=== PATIENT | male | born 1960 | race Caucasian/White ===

== ENCOUNTER 2016-05-26 11:35 | Inpatient (IN) | payer MEDICARE, MEDICAID ==
[2016-05-26 13:02] LABS: Hematocrit 41 % (42-52); Hemoglobin 14.1 g/dl (14.0-18.0); Mean Corpuscular HGB Conc 34 g/dl (31-36); Mean Corpuscular Hemoglobin 30 pg (27-31); Mean Corpuscular Volume 87 fL (80-94); Mean Platelet Volume 9 um3 (7.4-10.4); Red Blood Count 4.72 10^6/ul (4.0-5.4); Red Cell Distribution Width 15 % (10.5-15); White Blood Count 7.2 10^3/ul (3.5-10.8)
[2016-05-26 13:12] LABS: Albumin 4.3 g/dL (3.2-5.2); BUN/Creatinine Ratio 15.6 (8-20); C Reactive Protein 1.52 mg/L (< 5.00); Calcium 10.4 mg/dL (8.6-10.3); EGFR African American 166.4 (>60); EGFR Non-African American 129.4 (>60); Globulin 3.2 g/dL (2-4); Potassium 3.8 mmol/L (3.5-5.0); Total Bilirubin 0.5 mg/dL (0.2-1.0); Total Protein 7.5 g/dL (6.4-8.9)
[2016-05-26] MEDS ORDERED: Iodixanol* (CONTRAST) 320 MG/ML 100 ML SDV IV ONE (13:29)
[2016-05-26 14:09] LABS: Urine Bacteria Absent (Absent); Urine Bilirubin Negative (Negative); Urine Glucose Negative (Negative); Urine Nitrite Negative (Negative)
[2016-05-26 14:32] LABS: Troponin I 0.01 ng/mL (<0.04)
[2016-05-26] MEDS ORDERED: Aspirin TAB* 325 MG PO ONE (14:43)
[2016-05-26] MEDS ORDERED: NS 0.9% 1000 ML* 1,000 ML IV ONE (14:56)
--- NOTE | 2016-05-26 15:16 | RAD ---
Indication: Abdominal pain, left lower quadrant pain. Contrast: Administered 140.8 ml of VISAPAQUE 320 mgi/ml CT of the abdomen and pelvis was performed after IV contrast administration. No oral contrast was given. Coronal and sagittal reconstructed images were obtained. The lung bases demonstrate no pleural fluid, nodules or masses heart is of normal size without evidence of pericardial effusion. The liver is normal in size. No focal lesions or intrahepatic ductal dilatation is noted. The gallbladder demonstrates no calcified gallstones. No pericholecystic fluid or wall thickening is noted. The spleen is normal in size. No adrenal masses are noted. The kidneys demonstrate symmetric nephrograms without focal lesions. No retroperitoneal adenopathy. There is a dilated stomach and proximal jejunum noted. There is a zone of transition in the left mid abdomen findings are consistent with small bowel obstruction. Aorta and vena cava are unremarkable. No pelvic adenopathy. The bladder is unremarkable. No hernias are identified. The appendix is normal. IMPRESSION: DILATED STOMACH AND PROXIMAL SMALL BOWEL WITH SUGGESTION OF A ZONE OF TRANSITION IN THE LEFT MID ABDOMEN. FINDINGS ARE CONSISTENT WITH SMALL BOWEL OBSTRUCTION.
[2016-05-26] MEDS ORDERED: Dextrose 50% Syringe 50 ML* 25 GM/50 ML SYRINGE IV PUSH PRN (17:58)
[2016-05-26] MEDS ORDERED: Ondansetron INJ* 2 MG/ML VIAL IV PRN (18:54)
[2016-05-26] MEDS ORDERED: hydrALAZINE IV* 20 MG/ML VIAL IV SLOW PU PRN (19:12)
[2016-05-26] MEDS: NS 0.9% 1000 ML* 1,000 ML IV SCH (20:21)
[2016-05-26] MEDS: Pantoprazole IV* 40 MG IV SCH (20:22)
[2016-05-26] MEDS ORDERED: QUEtiapine TAB* 100 MG NG TUBE SCH ×2 (21:00)
[2016-05-26] MEDS: Metoprolol Tartrate TAB* 100 MG TAB NG TUBE SCH (21:19)
[2016-05-26] MEDS: Valproic Acid LIQ(*) 250 MG/5 ML UDC NG TUBE SCH (21:19)
[2016-05-26] MEDS: Insulin LISPRO* 1 UNITS UNIT SUBCUT SCH (21:20)
[2016-05-26] MEDS: Heparin VIAL(*) 5000 UNITS/ML VIAL (FIVE THOUSAND) SUBCUT SCH (21:22)
--- NOTE | 2016-05-26 23:05 | CONS ---
CONSULTATION REPORT: DATE OF CONSULT: 05/26/16 ATTENDING PHYSICIAN: Dr. Manav Campos. CHIEF COMPLAINT: Abdominal pain and distention. HISTORY OF PRESENT ILLNESS: Mr. Pinzon is a pleasant 55-year-old gentleman who presented to the emergency room earlier this morning with complaints of increased abdominal distention and generalized abdominal pain since this morning. The patient noted that last night he went to his mother's house and he was cleaning her refrigerator and he found some food items in there. He decided to take some mushrooms and sausage back home and he proceeded cooking these food items and eaten them last night. He denies any nausea or any abdominal discomfort last night; however, he got up this morning and he noticed increased discomfort and distention. He reports associated nausea, but denies any vomiting. He had never experienced any similar symptoms in the past. He denied any changes in the bowel habits, changes in the color of stool or urine, fever, chills, or any other associated symptoms. During his emergency room visit, he had an abdominal CT scan that revealed significantly distended abdomen and proximal small bowel with some transition zone in the mid jejunum consistent with probable small-bowel obstruction. Given these findings and the acute onset of his pain and distention, we were asked to see the patient for further evaluation regarding the small-bowel obstruction. Prior to entering the patient's room, it was noted that he had significant emesis for which he reports feeling much better. PAST MEDICAL HISTORY: Significant for schizophrenic disorder for which he had multiple psych admissions in the past lastly in December of last year. He also has a history of hypertension, hyperlipidemia, and morbid obesity. PAST SURGICAL HISTORY: Significant for left orchiectomy secondary to probable testicular torsion at age 18. He denies any abdominal surgery in the past. CURRENT MEDICATIONS: His medications at home include: 1. Risperdal 2 mg p.o. b.i.d. 2. Metformin 500 mg p.o. b.i.d. 3. Seroquel 400 mg p.o. q.h.s. 4. Actos 30 mg p.o. daily. 5. Nicotine inhaler 10 mg 1 inhalation every 2 hours p.r.n. 6. Metoprolol 100 mg b.i.d. 7. Lisinopril 10 mg p.o. daily. 8. Depakote 1500 mg p.o. q.h.s. 9. Lotensin 10 mg p.o. daily. 10. Atorvastatin 10 mg p.o. q.h.s. 11. Low-dose baby aspirin 81 mg daily. ALLERGIES: He is allergic to HALDOL and THIORIDAZINE. The patient unsure about any severe reaction related to either medications. FAMILY HISTORY: He denies any family history of colorectal malignancies or small bowel obstruction in the past. SOCIAL HISTORY: The patient is a smoker, reports 1 to 1-1/2 pack per day for the last 35 years. He denies alcohol intake or recreational drug use. REVIEW OF SYSTEMS: See HPI. Otherwise negative. He denies any recent changes in his weight, changes in bowel habits, hematuria, dysuria, urinary frequency, or any other urinary problems. He denies any fever, chills, or recent weight loss. No cough, dyspnea, or chest pain. He admits to nausea, but denies any vomiting until prior to seeing him in the emergency room. PHYSICAL EXAMINATION: Vital Signs: His blood pressure was elevated, value of 163/95, pulse of 78, respiration rate 20, O2 sat is 95%, and temperature of 98.6. General: He is a healthy-appearing, obese middle-aged gentleman, appears in no acute distress or discomfort at the time of consultation. HEENT: Sclerae anicteric. PERRLA. EOMs intact. Oropharynx is pink, moist with no exudate. Neck: Supple. Trachea midline. No cervical adenopathy or thyromegaly. Lungs: Clear to auscultation bilaterally. Heart is regular rate and rhythm. Normal S1, S2 without rubs, murmurs, or gallops. Back with normal curvature. No CVA tenderness. Abdomen: Soft and moderately distended. The patient had [id number] left upper quadrant tenderness noted on palpation, but negative for guarding or rebound tenderness. There is no organomegaly noted. No hernias or masses. Extremities without no cyanosis, clubbing, or edema. Neurologic: Grossly intact. Rectal Exam: Deferred at this time. LABORATORY WORKUP: The patient had CBC and chemistry done during his ER visit revealing a white count of 7200, hemoglobin of 14.1, hematocrit of 41, and platelet count of 147. His BMP revealed sodium of 136, potassium 3.8, chloride of 96, CO2 of 33, BUN of 10, and creatinine of 0.6 and his glucose was 129. LFTs are essentially within normal limits. C-reactive protein was 1.52, lipase of 54, and lactic acid slightly elevated value of 2.7. ACCESSORY DIAGNOSTIC DATA: CT scan of the abdomen and pelvis was significant for distended stomach in proximal small bowel with a transition zone in the mid jejunum consistent with small bowel obstruction. ASSESSMENT: A 55-year-old gentleman who presented to the emergency room with generalized abdominal pain and distention and CT scan findings consistent with small bowel obstruction. PLAN: As mentioned above in HPI, the patient had an emesis after his CT scan with significant amount of dark brown emesis noted after which he felt significantly better during his ER visit. Also, an NG tube was placed and an output of 1500 cc was noted within the first few minutes. The patient was re- examined and his abdomen was significantly less distended after that with significant improvement overall. I went on and discussed with the patient the probability of differential diagnosis for his symptoms. Given the fact that he had never had any surgeries in the past, we highly doubt any mechanical obstruction related to his small bowel obstruction or any surgical concern at this time. He likely suffered from a case of gastroenteritis that needs some decompression using an NG tube at this time. Once the decompression part is successful, we will start feeding him slowly. The case was discussed with Dr. Campos who agreed to that plan and he will contact the Hospitalist for probable medical admission for observation overnight. We will follow up with the patient tomorrow; and at this point, there are no signs of acute abdomen. We will follow him up accordingly. [facility] KAILA FARRIS [id number]/[facility] #: [id number] SYED
--- NOTE | 2016-05-27 00:53 | HP ---
HISTORY AND PHYSICAL: DATE OF ADMISSION: 05/26/16 PROVIDER: Fran Guzman NP ATTENDING PHYSICIAN: Dr. Samir Hansen * (as dictated by Fran Guzman NP) CONSULTING PHYSICIAN: Dr. Manav Campos, Surgery. PCP: Feliciano Mata NP CHIEF COMPLAINT: Abdominal pain and nausea and vomiting. HISTORY OF PRESENT ILLNESS: Mr. Pinzon is a 55-year-old male with the past medical history significant for schizophrenia, hypertension, coronary artery disease, and hypercholesterolemia who presented to the ER today for evaluation of abdominal pain, nausea, and vomiting. The patient states that last evening he made himself some pizza and used some mushrooms from refrigerator that were most likely spoiled. Starting last evening, the patient then had persistent nausea and vomiting that continues this morning. He states that his registration officer came by to check in on him and noted that he was ill and called EMS for him. He reported a persistent pain in his abdomen that he locates in the epigastric region down to the middle of his belly and states that this was very severe and lasted until the NG tube was placed here in the ER. He reports that he had persistent vomiting until this NG tube was placed and once it was placed he felt much better once the fluid had been drained off. It is estimated by nursing that the patient had approximately 2600 mL of brown bilious drainage from the NG tube in addition to the multiple emesis that he had. The patient reports subjective fevers as evidenced by sweating at home. He denies any dizziness, lightheadedness, chest pain, palpitations, or edema. He denies shortness of breath or cough. He denies any recent cold or flu symptoms. He denies any dysuria, focal weakness, changes in vision, hearing, or swallowing, changes in speech. He denies any joint pain, muscle pains, or rashes. He denies anxiety, depression, or suicidal ideation. During the patient's ER evaluation, it was noted that he had an elevated lactic acid of 2.7. The patient did have a CT scan, which showed dilated stomach and proximal small bowel with suggestion of a zone of transition in the left mid abdomen. Findings are consistent with small bowel obstruction. He does report that his last bowel movement was the morning of 05/25/16 and it was normal. He states that his bowel movement was soft, it did not appear to be out of the ordinary. He denies any hematemesis, melena, or hematochezia. PAST MEDICAL HISTORY: Significant for: 1. Schizophrenia. 2. Hypertension. 3. Coronary artery disease. 4. Hypercholesterolemia. 5. History of [place], per patient. 6. Diabetes mellitus, type 2. MEDICATIONS: Home Medications: Home med list is incomplete and the patient states that he brought the medication list, but this appears to have been lost. Nursing has been requested to obtain his med list as soon as possible. The patient does appear to be on Seroquel ER 400 mg at bedtime. He also states that he takes the divalproex ER 500 mg tablet, he takes 2 tablets in the morning and 2 tablets in the evening. ALLERGIES: The patient has a HALDOL allergy that is listed as an adverse reaction, which causes sleepiness and THIORIDAZINE adverse reaction that is noted as sensitivity. FAMILY HISTORY: The patient is unable to recall at this time. SOCIAL HISTORY: He is a current smoker, he states he smokes approximately a pack a day and does also puff on his pipe. He denies alcohol use. He denies any illicit drug use including marijuana, cocaine or heroin. He is not working. He states that he lives by himself and lists his mother, Dalia Cooper his surrogate decision maker. REVIEW OF SYSTEMS: 12-point review of systems was completed, all pertinent positives and negatives are included in the HPI. Others not mentioned are negative. PHYSICAL EXAMINATION GENERAL: Mr. Pinzon is a 55-year-old male who was sitting up in the ED stretcher in no acute distress. He is alert, cooperative with care. VITAL SIGNS: Temperature 98.2, respiratory rate 20, heart rate 78, blood pressure 143/73, and O2 saturation 95% on room air. HEENT: Head is atraumatic and normocephalic. Face is symmetrical. Pupils are equal, round, and reactive to light. Extraocular movements are intact. Oral mucosa appears moist. There is no oropharyngeal erythema or exudate. NECK: Supple. No lymphadenopathy appreciated. LUNGS: Respiratory; lungs are clear to auscultation. There is no accessory muscle use. HEART: S1 and S2 heart sounds. Regular rate and rhythm. No murmurs, rubs, or gallops. There is no lower extremity edema. The patient has 2+ distal pulses. ABDOMEN: Obese, distended, mildly tender in the left lower quadrant. Bowel sounds are hypoactive to the right and present on the left in the upper and lower quadrants. There is no rebound tenderness or guarding. MUSCULOSKELETAL: There is no clubbing or cyanosis. The patient has full range of motion. SKIN: Appears grossly intact, limited examination. NEUROLOGIC: Cranial nerves II through XII are grossly intact. The patient is able to move all extremities. Sensation is intact to light touch to the lower extremities. PSYCH: He is alert and oriented x3. His affect is appropriate. He is cooperative with care. LABORATORY DATA AND DIAGNOSTIC STUDIES: CBC: WBC 7.2, hemoglobin 14.1, hematocrit 41, platelet count 147. CMP: Sodium 136, potassium 3.8, chloride 96 , carbon dioxide 33, BUN 10, and creatinine 0.64. Glucose 129, lactic acid 2.7. Total bilirubin 0.5, AST 21, ALT 28, troponin 0.01. CRP 1.52. Albumin 4.3, lipase 84. Urinalysis shows trace ketones, 2+ protein, and amorphous crystals. CT scan. Impression: Dilated stomach and proximal small bowel with suggestion of a zone of transition in the left mid abdomen. Findings are consistent with small bowel obstruction. 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 The patient has right bundle-branch block. The patient was also noted to have an EKG from May 2011, which showed a previous inferior infarct, again Q- waves noted in leads II and aVF. Old medical records were reviewed. ASSESSMENT AND PLAN: Mr. Pinzon is a 55-year-old male with a past medical history of schizophrenia, hypertension, coronary artery disease, hyperlipidemia , diabetes, and hypertension who presents today with concern for small bowel obstruction. He will be admitted as an inpatient to the surgical floor. Plan is as follows: 1. Nausea, vomiting, and abdominal pain secondary to small bowel obstruction. Admit to surgical stay unit. Surgery was consulted in the ER and saw the patient prior to admission. They will continue to follow with the patient. The patient received an NG tube in the ER and has had significant output and reports improvement in his symptoms. We will continue the NG tube in low intermittent suction. The patient will be n.p.o. except for medications, which will be given per the NG tube and clamped. We will repeat a KUB in the morning. The patient will be receiving IV hydration and supportive care p.r.n. antiemetics and IV Protonix is ordered. 2. Lactic acidosis, suspect this is secondary to hypovolemia, dehydration in the presence of nausea and vomiting. Repeat lactic acid ordered. We will continue to monitor the patient, and he is receiving IV hydration. 3. Diabetes mellitus. Fingerstick blood glucose checks a.c. and h.s. On the unconfirmed medication list, it appears the patient is on oral hypoglycemics, which we will confirm. He may restart those once taking p.o. In the interim, we will continue the patient on fingerstick blood glucose checks and covering with sliding scale insulin. 4. Coronary artery disease. The patient appears to be on daily aspirin as well as a statin, which we will continue once he is taking p.o. Again, this needs to be confirmed with his home med list. 5. History of hypertension. The patient is hypertensive here. I have restarted his metoprolol and lisinopril that he verbally confirms that he takes. This will be given per NG tube. P.r.n. hydralazine is also ordered. 6. Schizophrenia. Given the patient's mental health issues and previous admission to the psychiatric unit, I am hesitant to discontinue or hold off on his antipsychotics. I did discuss the patient's medications with the pharmacist. We will switch the patient's Seroquel XR to Seroquel immediate release to be given b.i.d. per NG tube. The patient is also on valproic acid ER twice a day. With the help of the pharmacist, we have determined that the conversion of this should be Depakote immediate release liquid, which should be given 1500 mg over the course of the day in 3 divided doses, which has been ordered to be given per NG tube as well. Once the patient is able to take p.o., we can switch him back to his normal formulation. Again, the patient verbally reported what he remembers his divalproex and Seroquel doses to be; however, this needs to be confirmed with his PCP or pharmacy to determine if we have the correct dosing. 7. Hypercholesterolemia. Resume statin when taking p.o. 8. Fluids, electrolytes, and nutrition. The patient is n.p.o. Continue IV hydration. 9. DVT prophylaxis. The patient is ordered subcu heparin. 10. Code status. He is a full code. TIME SPENT: Time spent on this admission was approximately 60 minutes, more than half that time was spent [id number] with the patient obtaining history and physical, performing the physical examination, and reviewing the plan of care. Plan of care was also reviewed with my attending Dr. Hansen, who is in agreement. FRAN GUZMAN NP CC: Feliciano Mata [place]* [id number]/[facility] #: [id number] MTDLei
[2016-05-27] MEDS: NS 0.9% 1000 ML* 1,000 ML IV SCH ×3 (04:18→21:29)
[2016-05-27] MEDS: Heparin VIAL(*) 5000 UNITS/ML VIAL (FIVE THOUSAND) SUBCUT SCH ×3 (05:53→21:28)
[2016-05-27 07:03] LABS: Hematocrit 40 % (42-52); Hemoglobin 13.7 g/dl (14.0-18.0); Mean Corpuscular HGB Conc 34 g/dl (31-36); Mean Corpuscular Hemoglobin 30 pg (27-31); Mean Corpuscular Volume 87 fL (80-94); Mean Platelet Volume 8 um3 (7.4-10.4); Red Cell Distribution Width 15 % (10.5-15)
[2016-05-27 07:08] LABS: BUN/Creatinine Ratio 21.2 (8-20); Calcium 9.1 mg/dL (8.6-10.3); EGFR African American 160.6 (>60); EGFR Non-African American 124.9 (>60); Potassium 3.6 mmol/L (3.5-5.0)
[2016-05-27] MEDS: Insulin LISPRO* 1 UNITS UNIT SUBCUT SCH ×4 (08:44→21:26)
--- NOTE | 2016-05-27 08:47 | SURGPN ---
Subjective - Introduction -: Admitted on: 05/26/2016 Patient's surgical date: None Procedure completed: None - Medications -: Active Medications Generic Name Dose Route Start Last Admin Trade Name Nga PRN Reason Stop Dose Admin Dextrose 12.5 gm 05/26/16 17:58 D50w Syringe 50 Ml* IV PUSH .FOR FS < 60 - SS PRN FS < 60 Heparin Sodium (Porcine) 5,000 units 05/26/16 22:00 05/27/16 05:53 Heparin Vial(*) SUBCUT 5,000 units Q8HR ACE Administration Hydralazine HCl 5 mg 05/26/16 19:12 Apresoline Iv* IV SLOW PU Q4H PRN BLOOD PRESSURE Sodium Chloride 1,000 mls @ 125 mls/hr 05/26/16 19:00 05/27/16 04:18 Ns 0.9% 1000 Ml* IV 125 mls/hr PER RATE ACE Administration Insulin Human Lispro 0 units 05/26/16 21:00 05/26/16 21:20 Humalog* SUBCUT Not Given ACHS [facility] Protocol Metoprolol Tartrate 100 mg 05/26/16 21:00 05/26/16 21:19 Lopressor Tab* NG TUBE 100 mg BID ACE Administration Nicotine 10 mg 05/26/16 19:07 Nicotine Inhaler* INH Q2H PRN CRAVING Ondansetron HCl 4 mg 05/26/16 18:54 Zofran Inj* IV Q6H PRN NAUSEA/VOMITING Pantoprazole Sodium 40 mg 05/26/16 19:00 05/26/16 20:22 Protonix Iv* IV 40 mg DAILY ACE Administration Quetiapine Fumarate 500 mg 05/26/16 21:00 05/26/16 21:19 Seroquel Tab* NG TUBE 500 mg BEDTIME ACE Administration Valproic Acid 500 mg 05/26/16 21:00 05/26/16 21:19 Depakene Liq(*) NG TUBE 500 mg TID ACE Administration - Comments Comments: Patient reports doing much better today. He slept well last night. Denies any pain, nausea , fever or chills. No flatus yet, but he feels his abdomen "rumbling", also feels hungry and thirsty. Objective - Objective -: Awake and alert, appears comfortable and in NAD. Vitals, I/O reviewed from last night. - Intake and Output -: Intake & Output 05/25/16 05/26/16 05/27/16 05/28/16 06:59 06:59 06:59 06:59 Intake Total 980 Output Total 1300 Balance -320 Weight 275 lb Intake: IV Fluids 980 NS (0.9%) 980 Oral 0 Output: NG Tube Drainage Amount 950 Urine 350 Intake and Output Start: 05/26/16 18: 52 Freq: DAILY@0600,1400,2200 Status: Active Document 05/26/16 22:00 [id number] (Rec: 05/26/16 22:46 [id number]) Document 05/27/16 04:19 [id number] (Rec: 05/27/16 04:19 [id number]) Document 05/27/16 06:00 [id number] (Rec: 05/27/16 06:10 [id number]) Document 05/27/16 06:42 [id number] (Rec: 05/27/16 06:42 [id number]) Surgical Physical Exam - Comments -: Abdomen soft and significantly less distended compared to yesterday. No tenderness noted. Bowel sounds are hypoactive in all quadrants. No hernias or masses. Lungs CTA bilaterally. Extremities with no edema. Assessment and Plan - Assessment -: A 55 y/o male with resolving partial SBO secondary to probable gastroenteritis. - Plan Additional Comments: Patient is under hospitalist care. He is scheduled for a F/U abdominal films this AM. He is doing much better clinically with minimal NG output this morning. If abd x-ray shows improvement, I would recommend removing NG this morning, and starting clear liquid diet. I discussed these plans with patient, who appears to understand and agreed with his care plan. We will follow him up accordingly.
[2016-05-27] MEDS ORDERED: Lisinopril TAB* 10 MG NG TUBE SCH (09:00)
[2016-05-27] MEDS: Pantoprazole IV* 40 MG IV SCH (09:17)
[2016-05-27] MEDS: Valproic Acid LIQ(*) 250 MG/5 ML UDC NG TUBE SCH ×2 (09:27→14:19)
[2016-05-27] MEDS: Metoprolol Tartrate TAB* 100 MG TAB NG TUBE SCH (09:27)
[2016-05-27] MEDS: Mouth Piece, Nicotine* 1 EACH CARTRIDGE ONE (09:30)
[2016-05-27] MEDS: Nicotine Inhaler* 10 MG AMP INH PRN (09:30)
--- NOTE | 2016-05-27 14:05 | RAD ---
Indication: Small bowel obstruction follow-up. Comparison: May 26, 2016 CT. Technique: Supine abdomen radiographs. Report: Nasogastric tube tip at level of gastric body directed distal. The stomach appears largely decompressed. Solitary mildly dilated small bowel loop in the LEFT upper quadrant. Large volume of stool visualized in the RIGHT colon and hepatic flexure. IMPRESSION: Decreased magnitude of small bowel dilatation favoring resolving small bowel obstruction.
--- NOTE | 2016-05-27 14:47 | SURGPN ---
Subjective - Medications -: Active Medications Generic Name Dose Route Start Last Admin Trade Name Freq PRN Reason Stop Dose Admin Dextrose 12.5 gm 05/26/16 17:58 D50w Syringe 50 Ml* IV PUSH .FOR FS < 60 - SS PRN FS < 60 Heparin Sodium (Porcine) 5,000 units 05/26/16 22:00 05/27/16 14:18 Heparin Vial(*) SUBCUT 5,000 units Q8HR ACE Administration Hydralazine HCl 5 mg 05/26/16 19:12 Apresoline Iv* IV SLOW PU Q4H PRN BLOOD PRESSURE Sodium Chloride 1,000 mls @ 125 mls/hr 05/26/16 19:00 05/27/16 12:55 Ns 0.9% 1000 Ml* IV 125 mls/hr PER RATE ACE Administration Insulin Human Lispro 0 units 05/26/16 21:00 05/27/16 11:43 Humalog* SUBCUT Not Given ACHS [facility] Protocol Metoprolol Tartrate 100 mg 05/26/16 21:00 05/27/16 09:27 Lopressor Tab* NG TUBE 100 mg BID ACE Administration Nicotine 10 mg 05/26/16 19:07 05/27/16 09:30 Nicotine Inhaler* INH 10 mg Q2H PRN Administration CRAVING Ondansetron HCl 4 mg 05/26/16 18:54 Zofran Inj* IV Q6H PRN NAUSEA/VOMITING Pantoprazole Sodium 40 mg 05/26/16 19:00 05/27/16 09:17 Protonix Iv* IV 40 mg DAILY ACE Administration Quetiapine Fumarate 500 mg 05/26/16 21:00 05/26/16 21:19 Seroquel Tab* NG TUBE 500 mg BEDTIME ACE Administration Valproic Acid 500 mg 05/26/16 21:00 05/27/16 14:19 Depakene Liq(*) NG TUBE 500 mg TID ACE Administration - Comments Comments: Feeling better, has no complaints. He is hungry and thirsty. Objective - Objective -: Alert and oriented, in NAD. - Intake and Output -: Intake & Output 05/25/16 05/26/16 05/27/16 05/28/16 06:59 06:59 06:59 06:59 Intake Total 980 985 Output Total 1300 Balance -320 985 Weight 275 lb Intake: IV Fluids 980 985 NS (0.9%) 980 985 Oral 0 Output: NG Tube Drainage Amount 950 Urine 350 Intake and Output Start: 05/26/16 18: 52 Freq: DAILY@0600,1400,2200 Status: Active Document 05/26/16 22:00 [id number] (Rec: 05/26/16 22:46 [id number] [id number]) Document 05/27/16 04:19 [id number] (Rec: 05/27/16 04:19 [id number] [id number]) Document 05/27/16 06:00 [id number] (Rec: 05/27/16 06:10 [id number] [id number]) Document 05/27/16 06:42 [id number] (Rec: 05/27/16 06:42 [id number] [id number]) Surgical Physical Exam - Comments -: Unchanged from this morning. Abdomen is soft, non-tender and less distended. Bowel sounds are more active. KUB reviewed, resolving partial SOB. Assessment and Plan - Plan Additional Comments: Resolving partial SBO. Will d/c NG tube and start clear liquid diet slowly. I discussed with pt the need to ambulate as much as possible. Await bowel function.
--- NOTE | 2016-05-27 18:20 | PN ---
Subjective Date of Service: 05/27/16 Interval History: This is a 55 yo gentleman with schizophrenia, HTN, CAD, HLD, and DM who presented with severe abdominal pain, n/v. Imaging c/w SBO. NGT placed with large amount of emesis intially, but output slowed overnight. No h/o prior SBO. He also reports no prior abdominal surgeries. Patient reports resolution of abdominal pain. No further n/v. Reports having an appetite and passing gas. Objective Active Medications: Dextrose (D50w Syringe 50 Ml*) 12.5 gm IV PUSH .FOR FS < 60 - SS PRN PRN Reason: FS < 60 Heparin Sodium (Porcine) (Heparin Vial(*)) 5,000 units SUBCUT Q8HR [facility] Last Admin: 05/27/16 14:18 Dose: 5,000 units Hydralazine HCl (Apresoline Iv*) 5 mg IV SLOW PU Q4H PRN PRN Reason: BLOOD PRESSURE Sodium Chloride (Ns 0.9% 1000 Ml*) 1,000 mls @ 125 mls/hr IV PER RATE [facility] Last Admin: 05/27/16 12:55 Dose: 125 mls/hr Insulin Human Lispro (Humalog*) 0 units SUBCUT ACHS [facility] PRN Reason: Protocol Last Admin: 05/27/16 17:17 Dose: Not Given Metoprolol Tartrate (Lopressor Tab*) 100 mg NG TUBE BID [facility] Last Admin: 05/27/16 09:27 Dose: 100 mg Nicotine (Nicotine Inhaler*) 10 mg INH Q2H PRN PRN Reason: CRAVING Last Admin: 05/27/16 09:30 Dose: 10 mg Ondansetron HCl (Zofran Inj*) 4 mg IV Q6H PRN PRN Reason: NAUSEA/VOMITING Pantoprazole Sodium (Protonix Iv*) 40 mg IV DAILY [facility] Last Admin: 05/27/16 09:17 Dose: 40 mg Quetiapine Fumarate (Seroquel Tab*) 500 mg NG TUBE BEDTIME [facility] Last Admin: 05/26/16 21:19 Dose: 500 mg Valproic Acid (Depakene Liq(*)) 500 mg NG TUBE TID [facility] Last Admin: 05/27/16 14:19 Dose: 500 mg Vital Signs: Temp Pulse Resp BP Pulse Ox 98.3 F 75 18 161/81 95 05/27/16 16:29 05/27/16 16:29 05/27/16 16:29 05/27/16 16:29 05/27/16 16:29 Appearance: Well appearing middle aged gentleman in NAD. NGT in place. Neck: NL Appearance and Movements; NL JVP Respiratory: Symmetrical Chest Expansion and Respiratory Effort, Clear to Auscultation Cardiovascular: NL Sounds; No Murmurs; No JVD, RRR Abdominal: NL Sounds; No Tenderness; No Distention, - - faint bowel sounds present Extremities: No Edema Skin: No Rash or Ulcers Neurological: Alert and Oriented x 3 Result Diagrams: 05/27/16 06:20 05/27/16 06:21 Diagnostic Imaging: CT abd/pelvis - markedly distended stomach and SB KUB 05/27 - No dilated loops of SB, significant stool noted in large colon Assess/Plan/Problems-Billing Assessment: This is a 55 yo gentleman with schizophrenia, HTN, CAD, HLD, and DM who presented with evidence of SBO. - Patient Problems (1) SBO (small bowel obstruction) Comment: Improved with NGT decompression Now passing gas and has an appetite Will dc NGT and start clear liquid diet Etiology unknown, no h/o abdominal surgery, no gross pathology on CT, ? constipation (2) Constipation Comment: Sig stool noted on KUB today ?contributing to acute presentation Start Miralax bid (3) HTN (hypertension) Comment: Moderately hypertensive today Will resume home meds (4) Schizophrenia Comment: Stable Cont home meds (5) CAD (coronary artery disease) Comment: Cont BB, statin, ASA No evidence of ACS (6) Diabetes SNOMED Code(s): 22532320 Comment: Hold metformin Cover hyperglycemia with SS Humalog (7) HLD (hyperlipidemia) Status and Disposition: Requires continued inpatient stay. NGT dc'd this afternoon. Possible dc tomorrow if he can tolerate his diet
[2016-05-27] MEDS: Atorvastatin* 10 MG TAB PO SCH (20:33)
[2016-05-27] MEDS: QUEtiapine XR TAB* 300 MG PO SCH (20:33)
[2016-05-27] MEDS: Metoprolol Tartrate TAB* 100 MG TAB PO SCH (20:33)
[2016-05-27] MEDS: Divalproex ER TAB(*) 500 MG PO SCH (20:33)
[2016-05-27] MEDS: QUEtiapine XR TAB* 200 MG PO SCH (20:33)
[2016-05-27] MEDS: Polyethylene Glycol 3350* 17 GM PACKET PO SCH (20:33)
[2016-05-28] MEDS: NS 0.9% 1000 ML* 1,000 ML IV SCH (05:23)
[2016-05-28] MEDS: Heparin VIAL(*) 5000 UNITS/ML VIAL (FIVE THOUSAND) SUBCUT SCH ×3 (05:23→21:37)
[2016-05-28] MEDS: Insulin LISPRO* 1 UNITS UNIT SUBCUT SCH ×4 (07:32→21:11)
--- NOTE | 2016-05-28 08:40 | SURGPN ---
Subjective - Introduction -: Admitted on: 05/26/2016 Patient's surgical date: None Procedure completed: None - Medications -: Active Medications Generic Name Dose Route Start Last Admin Trade Name Nga PRN Reason Stop Dose Admin Aspirin 81 mg 05/28/16 09:00 Aspirin Ec Low Dose* PO DAILY [facility] Atorvastatin Calcium 10 mg 05/27/16 21:00 05/27/16 20:33 Lipitor* PO 10 mg BEDTIME [facility] Administration Dextrose 12.5 gm 05/26/16 17:58 D50w Syringe 50 Ml* IV PUSH .FOR FS < 60 - SS PRN FS < 60 Divalproex Sodium 500 mg 05/27/16 21:00 05/27/16 20:33 Depakote Er Tab(*) PO 500 mg BID [facility] Administration Heparin Sodium (Porcine) 5,000 units 05/26/16 22:00 05/28/16 05:23 Heparin Vial(*) SUBCUT 5,000 units Q8HR [facility] Administration Hydralazine HCl 5 mg 05/26/16 19:12 Apresoline Iv* IV SLOW PU Q4H PRN BLOOD PRESSURE Sodium Chloride 1,000 mls @ 125 mls/hr 05/26/16 19:00 05/28/16 05:23 Ns 0.9% 1000 Ml* IV 125 mls/hr PER RATE [facility] Administration Insulin Human Lispro 0 units 05/26/16 21:00 05/28/16 07:32 Humalog* SUBCUT Not Given ACHS [facility] Protocol Lisinopril 2.5 mg 05/28/16 09:00 Prinivil Tab* PO DAILY [facility] Metoprolol Tartrate 100 mg 05/27/16 21:00 05/27/16 20:33 Lopressor Tab* PO 100 mg BID [facility] Administration Nicotine 10 mg 05/26/16 19:07 05/27/16 09:30 Nicotine Inhaler* INH 10 mg Q2H PRN Administration CRAVING Ondansetron HCl 4 mg 05/26/16 18:54 05/27/16 19:36 Zofran Inj* IV 4 mg Q6H PRN Administration NAUSEA/VOMITING Pantoprazole Sodium 40 mg 05/26/16 19:00 05/27/16 09:17 Protonix Iv* IV 40 mg DAILY [facility] Administration Polyethylene Glycol/Electrolytes 17 gm 05/27/16 21:00 05/27/16 20:33 Miralax* PO 17 gm 0800,2100 [facility] Administration Quetiapine Fumarate 200 mg 05/27/16 21:00 05/27/16 20:33 Seroquel Xr Tab* PO 200 mg BEDTIME [facility] Administration Quetiapine Fumarate 300 mg 05/27/16 21:00 05/27/16 20:33 Seroquel Xr Tab* PO 300 mg BEDTIME [facility] Administration - Comments Comments: Patient continues to improve, passing flatus, increased appetite. Denies N/V or abdominal pain. Tolerating clear liquids well. Objective - Objective -: Awake and alert, appears comfortable and in NAD. - Intake and Output -: Intake & Output 05/26/16 05/27/16 05/28/16 05/29/16 06:59 06:59 06:59 06:59 Intake Total 980 4497 Output Total 1300 2425 Balance -320 2072 Weight 275 lb Intake: IV Fluids 980 2612 NS (0.9%) 980 2612 Oral 0 1885 Output: NG Tube Drainage Amount 950 100 Urine 350 2325 Other: # Voids 1 Surgical Physical Exam - Comments -: Vitals noted, Afebrile. Lungs: clear to auscultation bilat. Abdomen: soft, non-tender and less distended. No gadding, rigidity or rebound tenderness. Ext: No edema. Assessment and Plan - Assessment -: A 55 y/o gentleman with resolving SBO, secondary to probable gastroenteritis. - Plan Surgical Plan of Care: Advance Diet, Increase Activity, Discontinue IV Additional Comments: Patient tolerating clear liquids, will advance diet and d/c IVF. Discussed with him discharge plans this afternoon if he tolerates regular diet. He understood and agreed to plan of care.
[2016-05-28] MEDS: Lisinopril TAB* 5 MG PO SCH (08:52)
[2016-05-28] MEDS: Metoprolol Tartrate TAB* 100 MG TAB PO SCH ×2 (08:52→20:32)
[2016-05-28] MEDS: Aspirin EC Low Dose* 81 MG TAB.EC PO SCH (08:52)
[2016-05-28] MEDS: Pantoprazole IV* 40 MG IV SCH (08:53)
[2016-05-28] MEDS: Polyethylene Glycol 3350* 17 GM PACKET PO SCH ×2 (08:53→20:32)
[2016-05-28] MEDS: Divalproex ER TAB(*) 500 MG PO SCH ×2 (08:56→20:32)
--- NOTE | 2016-05-28 17:01 | PN ---
Subjective Date of Service: 05/28/16 Interval History: Patient reports improvement in pain. Some nausea, but no vomiting. Continues to pass gas, but no BM. Objective Active Medications: Aspirin (Aspirin Ec Low Dose*) 81 mg PO DAILY [facility] Last Admin: 05/28/16 08:52 Dose: 81 mg Atorvastatin Calcium (Lipitor*) 10 mg PO BEDTIME [facility] Last Admin: 05/27/16 20:33 Dose: 10 mg Dextrose (D50w Syringe 50 Ml*) 12.5 gm IV PUSH .FOR FS < 60 - SS PRN PRN Reason: FS < 60 Divalproex Sodium (Depakote Er Tab(*)) 500 mg PO BID [facility] Last Admin: 05/28/16 08:56 Dose: 500 mg Heparin Sodium (Porcine) (Heparin Vial(*)) 5,000 units SUBCUT Q8HR [facility] Last Admin: 05/28/16 14:48 Dose: 5,000 units Hydralazine HCl (Apresoline Iv*) 5 mg IV SLOW PU Q4H PRN PRN Reason: BLOOD PRESSURE Sodium Chloride (Ns 0.9% 1000 Ml*) 1,000 mls @ 125 mls/hr IV PER RATE [facility] Last Admin: 05/28/16 05:23 Dose: 125 mls/hr Insulin Human Lispro (Humalog*) 0 units SUBCUT ACHS [facility] PRN Reason: Protocol Last Admin: 05/28/16 16:54 Dose: Not Given Lisinopril (Prinivil Tab*) 2.5 mg PO DAILY [facility] Last Admin: 05/28/16 08:52 Dose: 2.5 mg Metoprolol Tartrate (Lopressor Tab*) 100 mg PO BID [facility] Last Admin: 05/28/16 08:52 Dose: 100 mg Nicotine (Nicotine Inhaler*) 10 mg INH Q2H PRN PRN Reason: CRAVING Last Admin: 05/27/16 09:30 Dose: 10 mg Ondansetron HCl (Zofran Inj*) 4 mg IV Q6H PRN PRN Reason: NAUSEA/VOMITING Last Admin: 05/27/16 19:36 Dose: 4 mg Pantoprazole Sodium (Protonix Iv*) 40 mg IV DAILY [facility] Last Admin: 05/28/16 08:53 Dose: 40 mg Polyethylene Glycol/Electrolytes (Miralax*) 17 gm PO 0800,2100 [facility] Last Admin: 05/28/16 08:53 Dose: 17 gm Quetiapine Fumarate (Seroquel Xr Tab*) 200 mg PO BEDTIME [facility] Last Admin: 05/27/16 20:33 Dose: 200 mg Quetiapine Fumarate (Seroquel Xr Tab*) 300 mg PO BEDTIME [facility] Last Admin: 05/27/16 20:33 Dose: 300 mg Vital Signs: Temp Pulse Resp BP Pulse Ox 98.7 F 77 26 142/84 94 05/28/16 15:42 05/28/16 15:42 05/28/16 15:42 05/28/16 15:42 05/28/16 15:42 Appearance: Well appearing middle aged gentleman in NAD Respiratory: Symmetrical Chest Expansion and Respiratory Effort, Clear to Auscultation Cardiovascular: NL Sounds; No Murmurs; No JVD, RRR Abdominal: - - mildly distended abdomen, no TTP, quiet bowel sounds Extremities: No Edema Skin: No Rash or Ulcers Neurological: Alert and Oriented x 3 Result Diagrams: 05/27/16 06:20 05/27/16 06:21 Diagnostic Imaging: CT abd/pelvis - markedly distended stomach and SB KUB 05/27 - No dilated loops of SB, significant stool noted in large colon Assess/Plan/Problems-Billing Assessment: This is a 55 yo gentleman with schizophrenia, HTN, CAD, HLD, and DM who presented with evidence of SBO. - Patient Problems (1) SBO (small bowel obstruction) Comment: Tolerated clear liquids and diet advanced at lunch Passing gas, but still no BM Etiology unknown, no h/o abdominal surgery, no gross pathology on CT, ? constipation (2) Constipation Comment: Sig stool noted on KUB ?contributing to acute presentation Start Miralax bid (3) HTN (hypertension) Comment: Moderately hypertensive Home meds have been resumed (4) Schizophrenia Comment: Stable Cont home meds (5) CAD (coronary artery disease) Comment: Cont BB, statin, ASA No evidence of ACS (6) Diabetes Comment: Hold metformin Cover hyperglycemia with SS Humalog (7) HLD (hyperlipidemia) Status and Disposition: Requires continued inpatient stay. Possible dc tomorrow if his bowels move overnight.
[2016-05-28] MEDS ORDERED: Mouth Piece, Nicotine* 1 EACH CARTRIDGE ONE (20:24)
[2016-05-28] MEDS: Nicotine Inhaler* 10 MG AMP INH PRN (20:27)
[2016-05-28] MEDS: Mouth Piece, Nicotine* 1 EACH CARTRIDGE ONE (20:27)
[2016-05-28] MEDS: QUEtiapine XR TAB* 300 MG PO SCH (20:30)
[2016-05-28] MEDS: Atorvastatin* 10 MG TAB PO SCH (20:31)
[2016-05-28] MEDS: QUEtiapine XR TAB* 200 MG PO SCH (20:32)
[2016-05-29] MEDS: Heparin VIAL(*) 5000 UNITS/ML VIAL (FIVE THOUSAND) SUBCUT SCH (05:46)
[2016-05-29] MEDS: Insulin LISPRO* 1 UNITS UNIT SUBCUT SCH ×2 (08:11→12:53)
[2016-05-29] MEDS: Aspirin EC Low Dose* 81 MG TAB.EC PO SCH (09:29)
[2016-05-29] MEDS: Divalproex ER TAB(*) 500 MG PO SCH (09:29)
[2016-05-29] MEDS: Polyethylene Glycol 3350* 17 GM PACKET PO SCH (09:29)
[2016-05-29] MEDS: Metoprolol Tartrate TAB* 100 MG TAB PO SCH (09:30)
[2016-05-29] MEDS: Lisinopril TAB* 5 MG PO SCH (09:32)
[2016-05-29] MEDS: Pantoprazole IV* 40 MG IV SCH (09:32)
--- NOTE | 2016-05-29 10:14 | SURGPN ---
Subjective - Introduction -: Reports doing much better today, wants to go home. Passing flatus, no BM yet. Denies abd pain, N/V. - Medications -: Active Medications Generic Name Dose Route Start Last Admin Trade Name Nga PRN Reason Stop Dose Admin Aspirin 81 mg 05/28/16 09:00 05/29/16 09:29 Aspirin Ec Low Dose* PO 81 mg DAILY [facility] Administration Atorvastatin Calcium 10 mg 05/27/16 21:00 05/28/16 20:31 Lipitor* PO 10 mg BEDTIME [facility] Administration Dextrose 12.5 gm 05/26/16 17:58 D50w Syringe 50 Ml* IV PUSH .FOR FS < 60 - SS PRN FS < 60 Divalproex Sodium 500 mg 05/27/16 21:00 05/29/16 09:29 Depakote Er Tab(*) PO 500 mg BID [facility] Administration Heparin Sodium (Porcine) 5,000 units 05/26/16 22:00 05/29/16 05:46 Heparin Vial(*) SUBCUT 5,000 units Q8HR [facility] Administration Hydralazine HCl 5 mg 05/26/16 19:12 Apresoline Iv* IV SLOW PU Q4H PRN BLOOD PRESSURE Sodium Chloride 1,000 mls @ 125 mls/hr 05/26/16 19:00 05/28/16 05:23 Ns 0.9% 1000 Ml* IV 125 mls/hr PER RATE [facility] Administration Insulin Human Lispro 0 units 05/26/16 21:00 05/29/16 08:11 Humalog* SUBCUT Not Given ACHS [facility] Protocol Lisinopril 2.5 mg 05/28/16 09:00 05/29/16 09:32 Prinivil Tab* PO 2.5 mg DAILY [facility] Administration Metoprolol Tartrate 100 mg 05/27/16 21:00 05/29/16 09:30 Lopressor Tab* PO 100 mg BID [facility] Administration Nicotine 10 mg 05/26/16 19:07 05/28/16 20:27 Nicotine Inhaler* INH 10 mg Q2H PRN Administration CRAVING Ondansetron HCl 4 mg 05/26/16 18:54 05/27/16 19:36 Zofran Inj* IV 4 mg Q6H PRN Administration NAUSEA/VOMITING Pantoprazole Sodium 40 mg 05/26/16 19:00 05/29/16 09:32 Protonix Iv* IV 40 mg DAILY [facility] Administration Polyethylene Glycol/Electrolytes 17 gm 05/27/16 21:00 05/29/16 09:29 Miralax* PO 17 gm 0800,2100 [facility] Administration Quetiapine Fumarate 200 mg 05/27/16 21:00 05/28/16 20:32 Seroquel Xr Tab* PO 200 mg BEDTIME [facility] Administration Quetiapine Fumarate 300 mg 05/27/16 21:00 05/28/16 20:30 Seroquel Xr Tab* PO 300 mg BEDTIME [facility] Administration Objective - Objective -: Awake and alert, in NAD. Sitting on bed, getting ready to take a shower. - Intake and Output -: Intake & Output 05/27/16 05/28/16 05/29/16 05/30/16 06:59 06:59 06:59 06:59 Intake Total 980 4497 2778 Output Total 1300 2425 850 Balance -320 2072 1928 Weight 275 lb Intake: IV Fluids 980 2612 408 NS (0.9%) 980 2612 408 Oral 0 1885 2370 Output: NG Tube Drainage Amount 950 100 Urine 350 2325 850 Other: Estimated Void Large # Voids 1 3 Surgical Physical Exam - Comments -: Vitals reviewed, afebrile. Abdomen: soft, non-tender, mildly distended. Bowel sounds present. No guarding or rigidity. Assessment and Plan - Assessment -: A 55 y/o gentleman with resolving partial SBO, awaiting bowel function. - Plan Surgical Plan of Care: Increase Activity Additional Comments: Advised patient to increase activity and ambulate OOB as tolerated. He is likely to be discharge back home this afternoon. There is no surgical concerns at this point. Will sign off patient. Please call surgery if any concerns, otherwise follow up as needed.
[2016-05-29] MEDS: Nicotine Inhaler* 10 MG AMP INH PRN (10:46)
[2016-05-29] MEDS ORDERED: Magnesium CITRATE* 300 ML BTL PO ONE (10:47)
[2016-05-29 12:12] VITALS: BP 142/88
--- NOTE | 2016-05-30 03:05 | DS ---
DISCHARGE SUMMARY: DATE OF ADMISSION: 05/26/16 DATE OF DISCHARGE: 05/29/16 PRIMARY CARE PROVIDER: Feliciano Mata NP DISCHARGING PROVIDER: KAILA Deshpande SUPERVISING PHYSICIAN: Dr. Nils Davis. * (DICTATED BY KAILA DESHPANDE) PRIMARY DISCHARGE DIAGNOSIS: Small bowel obstruction. SECONDARY DISCHARGE DIAGNOSES: 1. Chronic schizophrenia. 2. Hypertension. 3. Coronary artery disease. 4. Non-insulin dependent diabetes. 5. Hyperlipidemia. DISCHARGE MEDICATIONS: 1. Aspirin 81 mg p.o. daily. 2. Atorvastatin 10 mg p.o. daily. 3. Depakote 500 mg p.o. b.i.d. 4. Lisinopril 2.5 mg p.o. daily. 5. Metoprolol tartrate 100 mg p.o. b.i.d. 6. Seroquel extended release 500 mg at bedtime. 7. Metformin 1000 mg p.o. b.i.d. 8. Risperdal 50 mg IM every 2 weeks. MEDICATION CHANGES: None. HOSPITAL IMAGIN. CT of the abdomen and pelvis, 05/26/16, shows dilated stomach and proximal small bowel with suggestion of zone of transition in the left mid abdomen consistent with a small bowel obstruction. 2. X-ray of the abdomen, 05/27/16, shows no further dilated loops of small bowel. Evidence of significant amount of stool in the large colon. 3. EKG, 05/26/16, shows a sinus rhythm with a right bundle branch block. No ischemic changes. HOSPITAL COURSE: This is a 55-year-old gentleman with history of schizophrenia , hypertension, hyperlipidemia, and coronary artery disease, who presented to the emergency department with complaints of severe abdominal pain, nausea, and vomiting. CT scan demonstrated severely dilated stomach and proximal small bowel with evidence of a transition point. He had significant amount of emesis in the ER and an NG tube was placed. His output slowed considerably after his first night of admission and NG tube was discontinued the following day. The patient does not have any prior bowel surgeries. No evidence of an infectious process. The patient did have rather have significant amount of stool appreciated on followup KUB. Perhaps constipation contributed to his acute exacerbation, although this was quite dramatic. Otherwise etiology as a small bowel obstruction is not entirely clear. Prior to discharge, the patient had a bowel movement. He still feels slightly bloated but no further nausea or vomiting and is tolerating a full diet without pain. DISPOSITION: The patient is being discharged to home without any changes to his home medications. Recommend followup with his primary care provider regarding his hospital stay. No followup required with Surgery unless of course his small bowel obstruction resumed. The patient is encouraged to maintain a soft, low-fiber diet for the next of couple of weeks and maintain his bowel regimen of MiraLAX at home. KAILA DESHPANDE CC: Feliciano Mata NP * [id number]/[facility] #: [id number] MTDLei
--- NOTE | 2016-06-06 17:38 | ED ---
David Del Rio Matthew, scribed for Matt Jerome MD on 05/26/16 at 1244 . Abdominal Pain/Male - HPI Summary HPI Summary: A 55 y/o male presents to the ED with diffuse abdominal pain since 07:00. The pain is described as soreness and bloating. Associated symptoms include lower back pain. The patient denies nausea, vomiting, fever, urinary symptoms, SOB, chest pain, and testicular pain. The patient's last BM was yesterday. The patient is not on blood thinners. He's never had this type of pain before. Nothing improves the symptoms. He has a Hx of GERD and mylanta improved his symptoms in the past. The patient is on depakote. He has a Hx of multiple psychiatric disorders. - History of Current Complaint Chief Complaint: EDAbdPain Stated Complaint: ABD PAIN Time Seen by Provider: 05/26/16 11:53 Hx Obtained From: Patient Onset/Duration: Lasting Hours, Still Present Timing: Constant, Lasting Hours Severity Initially: Moderate Severity Currently: Moderate Pain Intensity: 7 Pain Scale Used: 0-10 Numeric Location: Diffuse Radiates: No Character: Other: - Bloating Alleviating Factor(s): Nothing Associated Signs And Symptoms: Positive: Cough - he states his cough is secondary to smoking, Back Pain. Negative: Fever, Chest Pain, Urinary Symptoms , Nausea, Vomiting, Diarrhea - Allergies/Home Medications Allergies/Adverse Reactions: Allergies Allergy/AdvReac Type Severity Reaction Status Date / Time Haloperidol [From Haldol] AdvReac Mild See Comment Verified 12/25/15 16:42 Thioridazine AdvReac Unknown See Comment Verified 12/24/15 15:00 PMH/Surg Hx/FS Hx/Imm Hx Endocrine/Hematology History: Reports: Hx Diabetes Cardiovascular History: Reports: Hx Hypercholesterolemia, Hx Hypertension History: Reports: Hx Kidney Stones Sensory History: Reports: Hx Contacts or Glasses Opthamlomology History: Reports: Hx Contacts or Glasses Psychiatric History: Reports: Hx Anxiety, Hx Inpatient Treatment, Hx Schizophrenia Denies: Hx Eating Disorder, Hx of Violent Episodes Against Others Infectious Disease History: No Infectious Disease History: Denies: Traveled Outside the [place] in Last 30 Days - Family History Known Family History: Positive: None - Patient denies family h/o heart disease and DM. - Social History Alcohol Use: None Substance Use Type: Reports: None Smoking Status (MU): Heavy Every Day Tobacco Smoker Type: Cigarettes, Pipe Amount Used/How Often: one pack of cigarettes per day/ also uses a pipe Have You Smoked in the Last Year: Yes Review of Systems Constitutional: Negative Negative: Fever, Chills Eyes: Negative Negative: Erythema ENT: Negative Negative: Sore Throat Cardiovascular: Negative Negative: Chest Pain Positive: Cough - Secondary to smoking . Negative: Shortness Of Breath Positive: Abdominal Pain - Diffuse. Negative: Vomiting, Diarrhea, Nausea Genitourinary: Negative Negative: dysuria, hematuria Positive: Myalgia - Lower back pain . Negative: Edema Skin: Negative Negative: Rash Neurological: Negative Negative: Headache Psychological: Normal All Other Systems Reviewed And Are Negative: Yes Physical Exam Triage Information Reviewed: Yes Vital Signs On Initial Exam: Initial Vitals Temp Pulse Resp BP Pulse Ox 98.5 F 82 27 150/93 94 05/26/16 11:43 05/26/16 11:43 05/26/16 11:43 05/26/16 11:43 05/26/16 11:43 Vital Signs Reviewed: Yes Appearance: Positive: No Pain Distress, Obese Skin: Positive: Warm, Dry Eyes: Positive: Conjunctiva Clear ENT: Positive: Normal ENT inspection Dental: Negative: Cervical Lymphadenopathy Neck: Positive: Supple, Nontender, No Lymphadenopathy, Other: - Full ROM Respiratory/Lung Sounds: Positive: Breath Sounds Present, Other - Normal Effort. Negative: Rales, Rhonchi, Stridor, Tracheal Deviation, Wheezes Cardiovascular: Positive: RRR, Other - Heart sounds normal; Intact distal pulses ; The pedal pulses are 2+ and symmetric. Radial pulses are 2+ and symmetric. Negative: Murmur Abdomen Description: Positive: Other: - LLQ tenderness, reexamined the patient while he was distracted and he was no longer tender in the LLQ. Inconsistent exam. Bowel Sounds: Positive: Present Musculoskeletal: Negative: Edema Left, Edema Right Neurological: Positive: Alert, Oriented to Person Place, Time - Nelson Coma Scale Coma Scale Total: 15 Diagnostics - Vital Signs Vital Signs Temp Pulse Resp BP Pulse Ox 05/26/16 11:58 97.5 F 82 19 141/91 96 05/26/16 11:51 97.5 F 79 15 124/82 96 05/26/16 11:43 98.5 F 82 27 150/93 94 - Laboratory Result Diagrams: 05/26/16 12:00 05/26/16 12:00 Lab Statement: Any lab studies that have been ordered have been reviewed, and results considered in the medical decision making process. - CT A/P CT CT Interpretation: Positive (See Comments) - IMPRESSION: DILATED STOMACH AND PROXIMAL SMALL BOWEL WITH SUGGESTION OF A ZONE OF TRANSITION IN THE LEFT MID ABDOMEN. FINDINGS ARE CONSISTENT WITH SMALL BOWEL OBSTRUCTION. CT Interpretation Completed By: Radiologist - EKG 13:57 Cardiac Rate: NL EKG Rhythm: Sinus Rhythm EKG Interpretation: Inferior Lateral Q-Waves Re-Evaluation - Re-Evaluation First Eval Re-Evaluation Time: 15:24 Comment: The patient vomited during the re-evaulation. Abdominal Pain Fem Course/Dx - Course Assessment/Plan: A 55 y/o male presents to the ED with diffuse abdominal pain since 07:00. Labs were reviewed and shows a troponin of 0.01. EKG shows sinus rhythm at 78 bpm with inferior lateral Q-Waves. CT A/P shows small bowel obstruction. Discussed the case with John Dexter who will evaluate and admit the patient. - Diagnoses Provider Diagnoses: SBO (small bowel obstruction) - Provider Notifications Discussed Care Of Patient With: John Dexter ([facility]) at 15:23 -- Notified of patient's history and will evalute and admit the patient. Discharge - Discharge Plan Condition: Stable Disposition: ADMITTED TO [facility] Referrals: Feliciano Mata OUTSIDE SALES INSPECTOR [Primary Care Provider] - The documentation as recorded by the David perdomo Matthew accurately reflects the service I personally performed and the decisions made by me, Matt Jerome MD.
== END 2016-05-29 14:00 | disposition home or self-care (01) | DRG 389 ==
LOC: ED 11:35 → SSU 17:54
PROVIDERS: ADMIT Internal Medicine; ATTEND Hospitalist
PROC: 0D9670Z Drainage of Stomach with Drainage Device, Via Natural or Artificial Opening (ICD-10-PCS; principal; 2016-05-26)
DX: K56.60 Unspecified intestinal obstruction (principal); F20.5 Residual schizophrenia; E87.2 Acidosis; I10 Essential (primary) hypertension; I25.10 Atherosclerotic heart disease of native coronary artery without angina pectoris; Z79.82 Long term (current) use of aspirin; E11.9 Type 2 diabetes mellitus without complications; Z79.84 Long term (current) use of oral hypoglycemic drugs; I45.10 Unspecified right bundle-branch block; K59.00 Constipation, unspecified; I25.2 Old myocardial infarction; Z88.8 Allergy status to other drugs, medicaments and biological substances; F17.200 Nicotine dependence, unspecified, uncomplicated; E86.0 Dehydration; E78.00 Pure hypercholesterolemia, unspecified; E66.01 Morbid (severe) obesity due to excess calories; Z80.0 Family history of malignant neoplasm of digestive organs; Z68.39 Body mass index [BMI] 39.0-39.9, adult
CPT/HCPCS: 36415; 74000; 74177; 80048; 80053; 80164; 81003; 81015; 83605; 83690; 84484; 85025; 86140; 93005; 99284; A9270-GY; J1644; J2405; Q9967

== ENCOUNTER 2016-06-14 14:57 | Emergency (ER) | payer MEDICARE, MEDICAID ==
[2016-06-14 15:33] LABS: Hematocrit 42 % (42-52); Hemoglobin 14.2 g/dl (14.0-18.0); Mean Corpuscular HGB Conc 34 g/dl (31-36); Mean Corpuscular Hemoglobin 30 pg (27-31); Mean Corpuscular Volume 88 fL (80-94); Mean Platelet Volume 8 um3 (7.4-10.4); Red Blood Count 4.83 10^6/ul (4.0-5.4); Red Cell Distribution Width 15 % (10.5-15); White Blood Count 7.5 10^3/ul (3.5-10.8)
[2016-06-14 15:48] LABS: ALT 28 U/L (7-52); AST 22 U/L (13-39); Albumin 4.3 g/dL (3.2-5.2); Alkaline Phosphatase 55 U/L (34-104); Anion Gap 11 mmol/L (2-11); BUN/Creatinine Ratio 12.1 (8-20); Blood Urea Nitrogen 8 mg/dL (6-24); CO2 Carbon Dioxide 26 mmol/L (22-32); Calcium 9.9 mg/dL (8.6-10.3); Chloride 97 mmol/L (101-111); EGFR African American 160.6 (>60); EGFR Non-African American 124.9 (>60); Glucose 126 mg/dL (70-100); Potassium 4.2 mmol/L (3.5-5.0); Sodium 134 mmol/L (133-145); Total Protein 7.3 g/dL (6.4-8.9)
[2016-06-14 16:10] LABS: Acetaminophen < 15 mcg/mL; Alcohol < 10 mg/dL (<10); Salicylate < 2.50 mg/dL (<30)
[2016-06-14 16:21] LABS: TSH (Thyroid Stimulating Horm) 1.42 mcIU/mL (0.34-5.60)
[2016-06-14 18:29] VITALS: BP 136/91
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
== END 2016-06-14 17:42 | disposition home or self-care (01) ==
LOC: ED 14:57
DX: F20.9 Schizophrenia, unspecified (principal); F17.210 Nicotine dependence, cigarettes, uncomplicated; F31.9 Bipolar disorder, unspecified; I10 Essential (primary) hypertension; E78.00 Pure hypercholesterolemia, unspecified
CPT/HCPCS: 36415; 80053; 80320; 80329; 84443; 85025; 99282; G0480

== ENCOUNTER 2016-06-21 13:20 | Emergency (ER) | payer MEDICARE, MEDICAID ==
[2016-06-21 14:32] LABS: Add Diff/Slide Review? Slide Review Added; Comments Flag Yes; Hematocrit 42 % (42-52); Hemoglobin 14.1 g/dl (14.0-18.0); Mean Corpuscular HGB Conc 34 g/dl (31-36); Mean Corpuscular Hemoglobin 29 pg (27-31); Mean Corpuscular Volume 88 fL (80-94); Mean Platelet Volume 9 um3 (7.4-10.4); Red Blood Count 4.79 10^6/ul (4.0-5.4); Red Cell Distribution Width 15 % (10.5-15); White Blood Count 8.2 10^3/ul (3.5-10.8)
[2016-06-21 14:43] LABS: ALT 32 U/L (7-52); AST 21 U/L (13-39); Albumin 4.4 g/dL (3.2-5.2); Alkaline Phosphatase 53 U/L (34-104); Anion Gap 8 mmol/L (2-11); BUN/Creatinine Ratio 14.5 (8-20); Blood Urea Nitrogen 8 mg/dL (6-24); CO2 Carbon Dioxide 26 mmol/L (22-32); Calcium 9.7 mg/dL (8.6-10.3); Chloride 99 mmol/L (101-111); EGFR African American 198.2 (>60); EGFR Non-African American 154.1 (>60); Glucose 93 mg/dL (70-100); Potassium 3.8 mmol/L (3.5-5.0); Sodium 133 mmol/L (133-145); Total Protein 7.4 g/dL (6.4-8.9)
[2016-06-21 14:57] LABS: Acetaminophen < 15 mcg/mL; Alcohol < 10 mg/dL (<10); Salicylate < 2.50 mg/dL (<30)
[2016-06-21 15:07] LABS: TSH (Thyroid Stimulating Horm) 1.06 mcIU/mL (0.34-5.60)
[2016-06-21 15:28] LABS: Urine Bacteria Absent (Absent); Urine Bilirubin Negative (Negative); Urine Glucose Negative (Negative); Urine Nitrite Negative (Negative)
[2016-06-21 15:39] LABS: Benzodiazepine Urine Screen None Detected (None Detect)
[2016-06-21] MEDS ORDERED: Metoprolol Tartrate TAB* 100 MG TAB PO ONE (16:43)
[2016-06-21] MEDS ORDERED: metFORMIN* 500 MG TAB PO ONE (16:43)
[2016-06-21] MEDS ORDERED: Divalproex ER TAB(*) 500 MG PO ONE (16:44)
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
[2016-06-21 19:21] VITALS: BP 177/98
== END 2016-06-21 19:18 | disposition home or self-care (01) ==
LOC: ED 13:20
DX: F20.9 Schizophrenia, unspecified (principal)
CPT/HCPCS: 36415; 80053; 80307; 80320; 80329; 81003; 81015; 84443; 85025; 99283; A9270-GY; G0480

== ENCOUNTER 2017-03-27 03:47 | Emergency (ER) | payer MEDICARE, MEDICAID ==
[2017-03-27 04:35] LABS: ABS Basophils 0 10^3/ul (0-0.2); ABS Eosinophils 0.1 10^3/ul (0-0.6); ABS Lymphocytes 1.9 10^3/ul (1.0-4.8); ABS Monocytes 0.9 10^3/ul (0-0.8); ABS Neutrophils 3.2 10^3/ul (1.5-7.7); ABS Nucleated RBC 0 10^3/ul; Eosinophil % 2.3 % (0-6); Hematocrit 41 % (42-52); Hemoglobin 14.1 g/dl (14.0-18.0); Lymphocyte % 31.2 % (25-47); Mean Corpuscular HGB Conc 35 g/dl (31-36); Mean Corpuscular Hemoglobin 31 pg (27-31); Mean Corpuscular Volume 89 fL (80-94); Mean Platelet Volume 8 um3 (7.4-10.4); Nucleated Red Blood Cells % 0; Platelet Count 109 10^3/ul (150-450); Red Blood Count 4.54 10^6/ul (4.0-5.4); Red Cell Distribution Width 15 % (10.5-15); White Blood Count 6.2 10^3/ul (3.5-10.8)
[2017-03-27 04:36] LABS: Urine Appearance Clear; Urine Blood Negative (Negative); Urine Color Yellow; Urine Ketones Negative (Negative); Urine Protein 2+(100 mg/dL) (Negative); Urine Specific Gravity 1.018 (1.010-1.030); Urine Urobilinogen Negative (Negative)
[2017-03-27 04:50] LABS: EGFR Non-African American 126.6 (>60)
[2017-03-27] MEDS ORDERED: metFORMIN* 500 MG TAB PO ONE (12:14)
--- NOTE | 2017-03-27 12:19 | PN ---
ED Flex Patient Progress Note Subjective: This is a 56 year-old M who is pending discharge to home. He was seen for auditory hallucinations. He has diabetes with glucosuria + 3 last night - glucose serum was 190. Has not taken any meds this morning however had breakfast. Will check blood glucose prior to d/c and offer metformin prior to leaving. Pt is sleeping comfortably in bed - offers no complaints at this time. Objective: Vitals: Most recent vital signs documented below. General NAD, Alert and oriented x3. Heart: RRR Lungs: CTA, breathing easily Assessment: 1) Auditory hallucinations 2) Diabetes Plan: 1) Pending discharge per psychiatry 2) Continue diabetes medication and lifestyle habits as directed by PCP Vital Signs Temp Pulse Resp BP Pulse Ox 99.5 F 79 22 130/86 96 03/27/17 07:09 03/27/17 07:09 03/27/17 07:09 03/27/17 07:09 03/27/17 07:09 Lab Results - Entire Visit 03/27/17 03/27/17 03/27/17 04:20 04:20 04:20 WBC 6.2 RBC 4.54 Hgb 14.1 Hct 41 L MCV 89 MCH 31 MCHC 35 RDW 15 Plt Count 109 L MPV 8 Neut % (Auto) 51.8 Lymph % (Auto) 31.2 [place] % (Auto) 13.9 H Eos % (Auto) 2.3 Baso % (Auto) 0.8 Absolute Neuts (auto) 3.2 Absolute Lymphs (auto) 1.9 Absolute Monos (auto) 0.9 H Absolute Eos (auto) 0.1 Absolute Basos (auto) 0 Absolute Nucleated RBC 0 Nucleated RBC % 0 Sodium Potassium Chloride Carbon Dioxide Anion Gap BUN Creatinine Est GFR ( Amer) Est GFR (Non-Af Amer) BUN/Creatinine Ratio Glucose Calcium Total Bilirubin AST ALT Alkaline Phosphatase Total Protein Albumin Globulin Albumin/Globulin Ratio TSH Urine Color Yellow Urine Appearance Clear Urine pH 6.0 Ur Specific [place] 1.018 Urine Protein 2+(100 mg/dl) H Urine Ketones Negative Urine Blood Negative Urine Nitrate Negative Urine Bilirubin Negative Urine Urobilinogen Negative Ur Leukocyte Esterase Negative Urine WBC (Auto) Trace(0-5/hpf) Urine RBC (Auto) Trace(0-2/hpf) Ur Squamous Epith Cells Present H Urine Bacteria Absent Urine Glucose 3+(>=500 mg/dl) H Salicylates Urine Opiates Screen None detected Acetaminophen Ur Barbiturates Screen None detected Ur Phencyclidine Scrn None detected Ur Amphetamines Screen None detected U Benzodiazepines Scrn None detected Urine Cocaine Screen None detected U Cannabinoids Screen None detected Serum Alcohol 03/27/17 04:20 WBC RBC Hgb Hct MCV MCH MCHC RDW Plt Count MPV Neut % (Auto) Lymph % (Auto) [place] % (Auto) Eos % (Auto) Baso % (Auto) Absolute Neuts (auto) Absolute Lymphs (auto) Absolute Monos (auto) Absolute Eos (auto) Absolute Basos (auto) Absolute Nucleated RBC Nucleated RBC % Sodium 133 Potassium 3.8 Chloride 98 L Carbon Dioxide 25 Anion Gap 10 BUN 8 Creatinine 0.65 L Est GFR ( Amer) 162.8 Est GFR (Non-Af Amer) 126.6 BUN/Creatinine Ratio 12.3 Glucose 190 H Calcium 9.7 Total Bilirubin 0.50 AST 29 ALT 35 Alkaline Phosphatase 64 Total Protein 7.1 Albumin 4.3 Globulin 2.8 Albumin/Globulin Ratio 1.5 TSH 2.90 Urine Color Urine Appearance Urine pH Ur Specific [place] Urine Protein Urine Ketones Urine Blood Urine Nitrate Urine Bilirubin Urine Urobilinogen Ur Leukocyte Esterase Urine WBC (Auto) Urine RBC (Auto) Ur Squamous Epith Cells Urine Bacteria Urine Glucose Salicylates < 2.50 Urine Opiates Screen Acetaminophen < 15 Ur Barbiturates Screen Ur Phencyclidine Scrn Ur Amphetamines Screen U Benzodiazepines Scrn Urine Cocaine Screen U Cannabinoids Screen Serum Alcohol < 10
[2017-03-27 12:32] VITALS: BP 0/0
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
== END 2017-03-27 12:29 ==
LOC: ED 03:47
DX: R44.0 Auditory hallucinations (principal); E11.9 Type 2 diabetes mellitus without complications
CPT/HCPCS: 36415; 80053; 80307; 80320; 80329; 81003; 81015; 84443; 85025; 86703; 99284; A9270-GY; G0480

== ENCOUNTER 2017-05-12 23:55 | Emergency (ER) | payer MEDICARE, MEDICAID ==
[2017-05-13 00:06] VITALS: BP 156/87
--- OUTSIDE RECORDS SUMMARY | 2017-05-13 00:19 | XMS REPORT ---
:1960 External Reference #:[id number] Author Organization [employer] Address [address] [address] Phone [phone] Care Team Providers Name Role Phone Jalil Linder MD Primary Care Physician Unavailable Payers Type Date Identification Numbers Payment Provider Subscriber Medicare Primary Effective: Policy Number: Medicare Jagruti Pinzon 2012 [id number] PayID: [id number] [address] [place] [address] Commercial Expires: 2012 Policy Number: [employer] Medicaid Jagruti Pinzon [id number] PayID: [id number] [address] [address] [place] [address] Medigap Part B Policy Number: [id number] Medicaid Jagruti Pinzon PayID: [id number] [address] [place] [address] Problems Date Description Provider Status Onset: 12/20/2009 Tobacco user Jalil Linder M.D.,FACP Active Onset: 02/19/2010 Type 2 diabetes mellitus Jalil Linder M.D.,FACP Active Onset: 02/19/2010 Hyperlipidemia Jalil Linder M.D.,FACP Active Onset: 03/10/2010 Diabetic renal disease Jalil Linder M.D.,FACP Active Onset: 05/22/2010 Coronary arteriosclerosis Jalil Linder M.D.,FACP Active Onset: 02/27/2011 Benign essential hypertension Issac Roman M.D. Active Onset: 02/09/2013 Anxiety state Jalil Linder M.D.,FACP Active Onset: 09/12/2015 Tubular adenoma Duncan Hou NP Active Note: GI: Dr. Love's removed 4 polyps. 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 Inactive Inactive: 04/09/2016 Onset: 11/04/2011 Electrocardiogram abnormal Issac Roman M.D. Inactive Inactive: 08/13/2016 Family History Date Family Member(s) Problem(s) Comments Father 63 as of 03/02/2008 Father Unknown Mother 62 as of 03/02/2008 Mother Diabetes Type II Siblings 2 First Brother 45 as of 03/02/2008 First Sister 40 as of 03/02/2008 Social History Type Date Description Comments Marital Status Lives With Mother Lives With Occupation Unemployed Occupation Disabled Cigarette Use Former Cigarette Smoker 2 smoked for 30 years-quit 2 Packs Daily months ago-reports he is currently smoking a pipe Pipe Current Pipe Smoker, Smokes 4 Pipes Daily ETOH Use Drinks Alcoholic Beverages Occasionally Smoking Patient is a current smoker, minimal cigarettes but does smokes every day use pipe after meals. Recreational Drug Use Denies Drug Use Smoking Heavy tobacco smoker (more than 10 cigarettes/day) Daily Caffeine Consumes on average 5-10 cups of regular coffee per day Exercise Type/Frequency Does not exercise General Hx Text Disabled Personal Habits Text mows lawn in summer Allergies, Adverse Reactions, Alerts Date Description Reaction Status Severity Comments 02/27/2011 Haldol active sleepy 05/09/2012 Mellaril sunlight sensitivity active Medications Medication Date Status Form Strength Qnty SIG Indications Ordering Provider Farxiga 05/06 Active Tablets 10mg 30tab 1 by mouth Jalil s every day Marcos Linder M.D.,ZARIA Ibuprofen 05/06 Active Tablets 400mg 90tab by mouth Jalil s every 4 to 6 Marcos Linder, rudolph phililps M.D., FACP needed Quetiapine 02/17 Active Tablets 300mg 1 by mouth at Ordering Provider Lisinopril 05/18 Active Tablets 10mg 90tab Take 1 I10 s Tablet By Marcos Linder, Mouth Every M.D.,FACP Day Divalproex 06/[address] 500mg 90tab take 1 s tablet by Ordering mouth twice Provider a day Senokot 06/08 Active Tablets 8.6mg 30tab bid prn s Marcos Linder M.D.,FACP Linzess 06/08 Active Capsules 145mcg 90cap take one s capsule by Marcos Linder, mouth every M.D.,FACP day Risperdal 04/09 Active Suspension 50mg 2unit intramuscula Other Const Rec s r q2 weeks Ordering Provider Metformin HCL 10/01 Active Tablets 500mg 450ta take 3 bs tablets by Marcos Linder, mouth every M.D.,FACP morning 2 tab every night Atorvastatin 09/10 Active Tablets 10mg 90tab take 1 E78.4 Jalil Calcium s tablet at Marcos Linder, bedtime M.D.,FACP Aspirin 03/[address] 81mg 100ta Take 1 I25.10 bs Tablet By Marcos Linder, Mouth Every M.D.,FACP Day Lancets For 06/17 Active 60uni use as Jalil Contour /2009 ts directed Marcos Linder, Glucometer M.D.,FACP Contour 06/17 Active use as Stevanovi Glucometer /2009 directed Eduar frost M.D. Test Strips For 06/17 Active 60uni check fsbg Jalil Shetty /2009 ts fasting and Marcos Linder, Glucometer 1-2 hours M.D.,FACP after eating a few times a week. Mylanta Active Suspension 200-200-2 15ml by Unknown / 0mg/5ML mouth every 4 hours for dyspepsia Metoprolol Active Tablets 100mg 180ta Take 1 Jalil Tartrate / bs Tablet By Marcos Linder, Mouth Twice M.D.,FACP A Day Farxiga 11/16 Hx Tablets 5mg 30tab 1 by mouth s every day Lucien Cervantes M.D.,FACP 05/06 Lisinopril 08/13 Hx Tablets 10mg 90tab Take 1 I10 Jalil s Tablet By Marcos Linder, - Mouth Every M.D.,[facility] Lisinopril 05/04 Hx Tablets 5mg 30tab 1 tab by I10 Qutaybeh s mouth every S. - day Maghaydah 08/13 , M.DIlana Polyethylene 04/23 Hx Granules 3350 2gm 17gm mix Jalil Glycol 335 with 8 oz of Marcos Linder - fluids once M.D.,[facility] 04/18 a day in the am Pt states he is no longer taking Colace 04/23 Hx Capsules 100mg 120ca 2 tabs bid ps Lucien Cervantes M.D.,[facility] 06/03 Quetiapine 04/09 Hx Tablets 400mg 30tab take one Other Fumarate s tablet by Ordering - mouth at Provider 02/17 bedtime Quetiapine 04/09 Hx Tablets 100mg 60tab 1 tab by Other Fumarate s mouth every Ordering - night at Provider 02/17 bedtime with 400 mg tab Senna 04/09 Hx Tablets 8.6mg 60tab 1 by mouth Jalil s twice a day Lucien Cervantes M.D.,[facility] 06/03 Lisinopril 04/09 Hx Tablets 2.5mg 90tab 1 by mouth I10 Jalil s every day Lucien Cervantes M.D.,[facility] 05/04 Lisinopril 01/12 Hx Tablets 10mg 30tab 1 by mouth I10 Jalil s every day Lucien Cervantes M.D.,[facility] 04/09 Pioglitazone 07 Hx Tablets 30mg 30tab Take 1 E11.69 Jalil HCL s Tablet Every Marcos Linder - Day MClaudia,[facility] 04/09 Pioglitazone 07/28 Hx Tablets 30mg 30tab 1 po qd (pt E11.9 Jalil HCL s states he Marcos Linder - takes just M.Marcos,[facility] 08/18 combination, this one was d/c) Metformin HCL 07/28 Hx Tablets 850mg 60tab 1 by mouth s twice a day Lucien Cervantes M.D.,[facility] 08/17 Benazepril HCL 09/10 Hx Tablets 10mg 30tab take 1 I10 s tablet by Marcos Linder, - mouth every M.D.,[facility] Pioglitazone 09/25 Hx Tablets 15-850mg 180ta take 1 250.00 Jalil HCL-Metformin bs tablet by Marcos Linder, HCL - mouth twice M.D.,[facility] 07/28 a /2015 Furosemide 05/24 Hx Tablets 20mg 7tabs 1 po qam 782.3 Lucien Cervantes M.D.,[facility] 08/28 Simvastatin 04/13 Hx Tablets 40mg 30tab 1 po q Lucien Moody N.P. 08/28 Hydroxyzine HCL 02/01 Hx Tablets 25mg 90tab 1 po qd prn s Lucien Cervantes M.D.,[facility] 08/28 Pioglitazone 10/07 Hx Tablets 15-850mg 60tab Take 1 250.00 Jalil HCL/Metformin s Tablet By Marcos Linder, HCL - Mouth Twice M.D.,[facility] 09/25 /2013 Cheratussin ac 07/29 Hx Syrup 100-10mg/ 200un 10 ml po qid 491.21 5ML its prn Lucien Cervantes M.D.,[facility] 10/07 Prednisone 07/29 Hx Tablets 10mg 30tab 4 tabs qd 491.21 s for 4 days, Marcos Linder, - then reduce M.DIlana,[facility] 10/07 by 1 tab /2012 every 2 days until finished Amoxicillin/Pot 07/27 Hx Tablets 875-125mg 20tab 1 po bid 466.0 [place] assium s Pachikara Clavulanate - Ludwig 10/07 Proair HFA With 07/27 Hx Aerosol 108(90Bas 1unit 2 puffs ih 466.0 Chirag Spacer /2012 e) s q4h prn Pachikara - mcg/Act Ludwig 10/07 Pioglitazone 01/26 Hx Tablets 15-850mg 60tab Take 1 250.00 Jalil HCL/Metformin s Tablet By Marcos Linder, HCL - Mouth Twice M.D.,[facility] 10/07 A Day /2012 Simvastatin 09/16 Hx Tablets 40mg 90tab Take 1 272.4 s Tablet By Marcos Linder, - Mouth At M.D.,[facility] 01/10 Bedtime Zyprexa 03/11 Hx Tablets 15mg 30tab po qpm(10mg) s Lucien Cervantes M.D.,[facility] 01/10 Zyprexa 03/06 Hx Tablets 10mg 60tab 1.5 tabs po s qpm Lucien Cervantes M.D.,[facility] 03/11 Divalproex 03/[address] 500mg 90tab take 2 s tablets po Marcos Linder, - bid Guillermo.DIlana,[facility] 06/08 Lisinopril 03/10 Hx Tablets 2.5mg 90tab 1 po qd 250.40 s Lucien Cervantes M.D.,[facility] 05/09 Actoplus Met 02/19 Hx Tablets 15-850mg 60tab Take 1 250.00 s Tablet By Marcos Linder, - Mouth Twice M.DIlana,[facility] 01/26 Clarithromycin 12/20 Hx Tablets 500mg 14tab 1 po bid for 466.0 s 7 days Lucien Cervantes M.D.,[facility] 02/19 Metformin HCL 06/17 Hx Tablets 850mg 60tab 1 po bid 272.4 Jalil s Lucien Cervantes M.D.,[facility] 02/19 250.00 Actos 06/17/2009 - Hx Tablets 15mg 60tabs 1 po bid 250.00 Jalil 02/19/2010 Marcos Linder M.D.,[facility] Crestor 06/17/2009 - Hx Tablets 20mg 30.0tabs Take 1 Tablet 272.4 Hernandez Naqvi 09/17/2011 By Mouth Marcos Linder, Every Evening M.DIlana,FACP Ketoconazole 06/05/2009 - Hx Cream 2% 60gm 1 application 110.3 Stevanovic, 08/22/2009 daily uLdwig Witt Zyprexa 05/20/2009 - Hx Tablets 15mg 60tabs 1.5 tabs po Chris E. 03/06/2011 qhs. Tiffanie M.D. Metoprolol 03/20/2009 - Hx Tablets 50mg 60tabs Take 1 Tablet Jalil Tartrate 05/09/2012 By Mouth Marcos Linder, Twice A Day M.Marcos,FAC Toprol XL 10/30/2008 - Hx Tablets ER 50mg 135tabs 1 po am and Qutaybeh S. 03/20/2009 24HR 1/2 pm Ludwig Roman Tricor 03/02/2008 - Hx Tablets 145mg 90tabs 1 po qd Stevanohina, 06/17/2009 Ludwig Witt Depakote 03/02/2008 - Hx Tablets DR 500mg 90tabs 3 po qd Jalil 03/19/2010 Marcos Linder M.D.,FAC Zyprexa 03/02/2008 - Hx Tablets 20mg one po qd Qutaybeh S. 05/20/2009 Ludwig Roman Toprol XL 03/02/2008 - Hx Tablets ER 50mg 30tabs 1 po qd Qutaybeh S. 10/30/2008 24HR Ludwig Roman Metformin - Hx 500mg 60units 1 po bid Stevanohina, 06/17/2009 Ludwig Witt Geodon - Hx Capsules 60mg 2 po qpm Unknown 05/09/2012 Olanzapine - Hx Tablets 15mg 90tabs daily (pt Jalil 01/13/2016 states he Marcos Linder, takes 23mg M.DIlana,FACP daily) Hydroxyzine HCL - Hx Tablets 25mg 30tabs take 1 tablet Unknown 10/07/2012 daily Pioglitazone - Hx Tablets 15-500 60tabs 1 tablet E11.69 Manav Morrison HCL-Metformin 10/02/2015 mg twice a day KENA Cervantes M.D.,FACP Benztropine - Hx Tablets 1mg 60tabs Take 1 Tablet Jalil Mesylate 04/09/2016 By Mouth Marcos Linder, Twice A Day M.DIlana,FACP Risperdal - Hx Tablets 2mg 1 po bid Unknown 04/09/2016 Colace - Hx Capsules 100mg two tabs by Unknown 06/08/2016 mouth bid Immunizations CPT Code Status Date Vaccine Lot # [id number] Given 02/17/2017 Influenza Virus Vaccine, Quadrivalent, Split, [id number] Preservative Free 03545 Given 02/17/2017 Pneumococcal Conjugate Vaccine 13 Valent For [id number] Intramuscular Use 81538 Given 03/05/2015 Tetanus And Diptheria (Td) For Adult Use [id number] Preservative Free 33468 Given 03/05/2015 Influenza Virus Vaccine, Quadrivalent, Split, [id number] Preservative Free 54679 Given 01/10/2013 Flu Vaccine Split Virus Preservative Free For [id number] Indiv 3Yr Older 80764 Given 10/14/2012 Hepatitis B Vaccine Adult Dosage [id number] 26093 Given 05/16/2012 Hepatitis B Vaccine Adult Dosage 77792 Given 05/16/2012 Hepatitis B Vaccine Adult Dosage [id number] 02193 Given 04/12/2012 Hepatitis B Vaccine Adult Dosage [id number] 66142 Given 04/12/2012 Influenza Virus 3Yrs & Over 84673 Given 03/06/2011 Influenza Virus 3Yrs & Over [id number] 26998 Given 03/10/2010 Pneumonia Vaccine 32107 Given 03/10/2010 Pneumonia Vaccine [id number] 38597 Given 02/19/2010 Influenza Virus 3Yrs & Over Vital Signs Date Vital Result Comment 05/06/2017 Weight 272.00 lb Heart Rate 85 /min BP Systolic Sitting 136 mmHg BP Diastolic Sitting 70 mmHg Body Temperature 97.8 F O2 % BldC Oximetry 96 % 04/19/2017 Height 68 inches 5'8" Weight 268.25 lb w/shoes Heart Rate 88 /min BP Systolic Sitting 114 mmHg LA lg cuff BP Diastolic Sitting 72 mmHg LA lg cuff BMI (Body Mass Index) 40.8 kg/m2 Ejection Fraction 55% Stress Test 08/19/16 02/17/2017 Height 68 inches 5'8" Weight 281.00 lb Heart Rate 103 /min BP Systolic Sitting 150 mmHg BP Diastolic Sitting 84 mmHg BP Systolic Recheck 125 mmHg BP Diastolic Recheck 78 mmHg Body Temperature 98.0 F O2 % BldC Oximetry 93 % BMI (Body Mass Index) 42.7 kg/m2 11/16/2016 Height 68 inches 5'8" Weight 274.00 lb Heart Rate 75 /min BP Systolic 130 mmHg BP Diastolic 76 mmHg Body Temperature 97.8 F O2 % BldC Oximetry 96 % BMI (Body Mass Index) 41.7 kg/m2 08/13/2016 Weight 270.38 lb Heart Rate 90 /min BP Systolic Sitting 154 mmHg BP Diastolic Sitting 88 mmHg BP Systolic Recheck 145 mmHg BP Diastolic Recheck 82 mmHg Body Temperature 98.2 F O2 % BldC Oximetry 98 % 07/22/2016 Height 68 inches 5'8" Weight 272.00 lb with shoes Heart Rate 78 /min BP Systolic Sitting 162 mmHg LA lrg cuff BP Diastolic Sitting 94 mmHg LA lrg cuff BMI (Body Mass Index) 41.4 kg/m2 Ejection Fraction 55% - 60% echo 07/06/16 06/08/2016 Weight 269.38 lb Heart Rate 82 /min BP Systolic Sitting 142 mmHg BP Diastolic Sitting 93 mmHg BP Systolic Recheck 124 mmHg BP Diastolic Recheck 80 mmHg Body Temperature 98.2 F O2 % BldC Oximetry 96 % 05/04/2016 Height 68 inches 5'8" Weight 273.00 lb w/shoes Heart Rate 86 /min BP Systolic Sitting 190 mmHg LA lg cuff BP Diastolic Sitting 102 mmHg LA lg cuff BMI (Body Mass Index) 41.5 kg/m2 Ejection Fraction 50-55% Stress Echo 08/30/09 04/09/2016 Weight 272.25 lb Heart Rate 83 /min BP Systolic Sitting 144 mmHg BP Diastolic Sitting 86 mmHg Body Temperature 98.4 F O2 % BldC Oximetry 98 % 08/19/2015 Height 68 inches 5'8" Weight 254.75 lb Heart Rate 68 /min BP Systolic Sitting 142 mmHg LA, large BP Diastolic Sitting 68 mmHg LA, large BMI (Body Mass Index) 38.7 kg/m2 Ejection Fraction 50-55% echo 08/30/09 03/05/2015 Weight 274.00 lb Heart Rate 109 /min BP Systolic Sitting 153 mmHg BP Diastolic Sitting 96 mmHg Body Temperature 98.2 F 01/22/2015 Height 69 inches 5'9" Weight 276.25 lb with shoes BP Systolic Sitting 140 mmHg LA lg cuff BP Diastolic Sitting 90 mmHg LA lg cuff BMI (Body Mass Index) 40.8 kg/m2 Ejection Fraction 50-55% date 07/30/09 ECHO 12/04/2014 Weight 279.00 lb Heart Rate 71 /min BP Systolic Sitting 144 mmHg BP Diastolic Sitting 86 mmHg Body Temperature 97.8 F O2 % BldC Oximetry 96 % 09/10/2014 Height 69.5 inches 5'9.50" Weight 275.00 lb Heart Rate 98 /min BP Systolic Sitting 153 mmHg BP Diastolic Sitting 103 mmHg BMI (Body Mass Index) 40.0 kg/m2 08/28/2014 Height 69.5 inches 5'9.50" Weight 270.75 lb Heart Rate 67 /min BP Systolic Sitting 144 mmHg BP Diastolic Sitting 98 mmHg O2 % BldC Oximetry 96 % BMI (Body Mass Index) 39.4 kg/m2 05/28/2014 Height 69.5 inches 5'9.50" Weight 259.00 lb Heart Rate 77 /min BP Systolic Sitting 138 mmHg BP Diastolic Sitting 88 mmHg Body Temperature 97.4 F O2 % BldC Oximetry 95 % BMI (Body Mass Index) 37.7 kg/m2 05/21/2014 Height 69.5 inches 5'9.50" Weight 2634.00 lb Heart Rate 96 /min BP Systolic Sitting 172 mmHg LA, reg BP Diastolic Sitting 92 mmHg LA, reg BMI (Body Mass Index) 383.4 kg/m2 10/16/2013 Height 69.5 inches 5'9.50" Weight 252.75 lb Heart Rate 76 /min BP Systolic Sitting 132 mmHg BP Diastolic Sitting 88 mmHg Respiratory Rate 16 /min BMI (Body Mass Index) 36.8 kg/m2 05/24/2013 Height 69.5 inches 5'9.50" Weight 284.00 lb Heart Rate 80 /min BP Systolic Sitting 124 mmHg BP Diastolic Sitting 88 mmHg Body Temperature 98.5 F BMI (Body Mass Index) 41.3 kg/m2 04/13/2013 Height 70 inches 5'10" Weight 284.00 lb Heart Rate 70 /min BP Systolic Sitting 136 mmHg BP Diastolic Sitting 88 mmHg BMI (Body Mass Index) 40.7 kg/m2 03/10/2013 Height 70 inches 5'10" Weight 282.00 lb Heart Rate 80 /min BP Systolic 104 mmHg BP Diastolic 60 mmHg Respiratory Rate 14 /min BMI (Body Mass Index) 40.5 kg/m2 01/10/2013 Weight 289.00 lb Heart Rate 74 /min BP Systolic Sitting 142 mmHg BP Diastolic Sitting 88 mmHg 10/07/2012 Weight 280.75 lb Heart Rate 72 /min BP Systolic Sitting 122 mmHg BP Diastolic Sitting 68 mmHg 07/29/2012 Height 68 inches 5'8" Weight 287.00 lb Heart Rate 73 /min BP Systolic Sitting 124 mmHg BP Diastolic Sitting 72 mmHg Respiratory Rate 22 /min Body Temperature 98.2 F O2 % BldC Oximetry 92 % BMI (Body Mass Index) 43.6 kg/m2 07/27/2012 Height 68 inches 5'8" Weight 290.75 lb Heart Rate 94 /min BP Systolic Sitting 136 mmHg BP Diastolic Sitting 78 mmHg Respiratory Rate 22 /min Body Temperature 96.8 F O2 % BldC Oximetry 85 % after 5 min 90% BMI (Body Mass Index) 44.2 kg/m2 05/09/2012 Height 68 inches 5'8" Weight 282.00 lb Heart Rate 80 /min BP Systolic Sitting 100 mmHg BP Diastolic Sitting 70 mmHg BP Systolic Standing 98 mmHg BP Diastolic Standing 72 mmHg BP Systolic Lying Down 108 mmHg BP Diastolic Lying Down 66 mmHg Respiratory Rate 24 /min BMI (Body Mass Index) 42.9 kg/m2 04/12/2012 Height 68 inches 5'8" Weight 285.00 lb Heart Rate 76 /min BP Systolic Sitting 112 mmHg BP Diastolic Sitting 64 mmHg BMI (Body Mass Index) 43.3 kg/m2 11/04/2011 Height 68 inches 5'8" Weight 280.00 lb Heart Rate 82 /min BP Systolic 126 mmHg BP Diastolic 72 mmHg BMI (Body Mass Index) 42.6 kg/m2 03/06/2011 Height 68 inches 5'8" Weight 280.00 lb Heart Rate 72 /min BP Systolic Sitting 115 mmHg BP Diastolic Sitting 76 mmHg BMI (Body Mass Index) 42.6 kg/m2 02/27/2011 Height 68 inches 5'8" Weight 281.00 lb Heart Rate 71 /min BP Systolic 116 mmHg BP Diastolic 74 mmHg BMI (Body Mass Index) 42.7 kg/m2 05/22/2010 Height 68 inches 5'8" Weight 266.00 lb Heart Rate 74 /min BP Systolic Sitting 110 mmHg BP Diastolic Sitting 76 mmHg BMI (Body Mass Index) 40.4 kg/m2 05/09/2010 Height 68 inches 5'8" Weight 265.00 lb Heart Rate 82 /min BP Systolic Sitting 110 mmHg L BP Diastolic Sitting 70 mmHg L BMI (Body Mass Index) 40.3 kg/m2 03/10/2010 Weight 266.00 lb Heart Rate 80 /min BP Systolic Sitting 112 mmHg BP Diastolic Sitting 76 mmHg 02/19/2010 Weight 255.00 lb Heart Rate 96 /min BP Systolic Sitting 116 mmHg BP Diastolic Sitting 76 mmHg 12/20/2009 Weight 254.00 lb Heart Rate 84 /min BP Systolic Sitting 102 mmHg BP Diastolic Sitting 70 mmHg Body Temperature 98.8 F O2 % BldC Oximetry 93 % went up to 96 after sitting a while 11/25/2009 Weight 259.00 lb Heart Rate 71 /min BP Systolic Sitting 102 mmHg BP Diastolic Sitting 70 mmHg 11/07/2009 Weight 255.00 lb Heart Rate 88 /min BP Systolic 140 mmHg BP Diastolic 90 mmHg Respiratory Rate 18 /min 08/22/2009 Weight 252.00 lb Heart Rate 84 /min BP Systolic Sitting 126 mmHg BP Diastolic Sitting 82 mmHg 07/26/2009 Weight 254.25 lb Heart Rate 78 /min BP Systolic Sitting 142 mmHg BP Diastolic Sitting 82 mmHg 07/18/2009 Weight 255.00 lb Heart Rate 80 /min BP Systolic 122 mmHg BP Diastolic 80 mmHg 06/17/2009 Weight 255.00 lb Heart Rate 80 /min BP Systolic Sitting 128 mmHg BP Diastolic Sitting 90 mmHg 06/05/2009 Weight 255.00 lb Heart Rate 72 /min BP Systolic Sitting 116 mmHg BP Diastolic Sitting 80 mmHg 05/20/2009 Height 70 inches 5'10" Weight 252.00 lb Heart Rate 72 /min BP Systolic Sitting 123 mmHg BP Diastolic Sitting 82 mmHg BMI (Body Mass Index) 36.2 kg/m2 05/02/2009 Height 66 inches 5'6" Weight 255.00 lb Heart Rate 78 /min BP Systolic Sitting 128 mmHg BP Diastolic Sitting 84 mmHg BMI (Body Mass Index) 41.2 kg/m2 10/30/2008 Height 66 inches 5'6" Weight 254.00 lb Heart Rate 92 /min BP Systolic Sitting 134 mmHg BP Diastolic Sitting 90 mmHg BMI (Body Mass Index) 41.0 kg/m2 05/01/2008 Weight 265.00 lb Heart Rate 88 /min BP Systolic Sitting 128 mmHg BP Diastolic Sitting 80 mmHg Respiratory Rate 18 /min 04/05/2008 Height 66 inches 5'6" Weight 253.00 lb Heart Rate 88 /min BP Systolic Sitting 130 mmHg L BP Diastolic Sitting 84 mmHg L BMI (Body Mass Index) 40.8 kg/m2 03/02/2008 Height 66 inches 5'6" Weight 253.00 lb Heart Rate 84 /min BP Systolic Sitting 140 mmHg L BP Diastolic Sitting 100 mmHg L BMI (Body Mass Index) 40.8 kg/m2 Results Test Date Test Result H/L Range Note Laboratory test 05/06/2017 Hemoglobin A1c 8.2 High 5-7 finding Laboratory test 03/27/2017 Point of Care Glucose 253 mg/dL High 70-100 1 finding Laboratory test 02/17/2017 Hemoglobin A1c 9.0 High 5-7 finding Laboratory test 02/15/2017 Valproic Acid 73.0 g/mL 50-100 finding (Depakene) Basic Metabolic Panel 12/01/2016 Sodium 134 mmol/L 133-145 Potassium 4.2 mmol/L 3.5-5.0 Chloride 96 mmol/L Low 101-111 Co2 Carbon Dioxide 31 mmol/L 22-32 Anion Gap 7 mmol/L 2-11 Glucose 160 mg/dL High 70-100 Blood Urea Nitrogen 11 mg/dL 6-24 Creatinine 0.68 mg/dL 0.67-1.17 BUN/Creatinine Ratio 16.2 8-20 Calcium 9.9 mg/dL 8.6-10.3 Egfr Non- 120.2 >60 Egfr 154.6 >60 2 Laboratory test finding 12/01/2016 Valproic Acid (Depakene) 91.0 g/mL 50-100 Hemoglobin A1c (Glyco HGB) 7.7 % High Less than 6.0 3 Laboratory test finding 11/16/2016 Hemoglobin A1c 7.9 High 5-7 Laboratory test finding 08/19/2016 Valproic Acid 42.0 g/mL Low 50-100 (Depakene) Basic Metabolic Panel 08/19/2016 Sodium 136 mmol/L 133-145 Potassium 3.8 mmol/L 3.5-5.0 Chloride 99 mmol/L Low 101-111 Co2 Carbon Dioxide 25 mmol/L 22-32 Anion Gap 12 mmol/L High 2-11 Glucose 266 mg/dL High 70-100 Blood Urea Nitrogen 10 mg/dL 6-24 Creatinine 0.59 mg/dL Low 0.67-1.17 BUN/Creatinine Ratio 16.9 8-20 Calcium 9.5 mg/dL 8.6-10.3 Egfr Non- 142.1 >60 Egfr 182.7 >60 4 Laboratory test 08/19/2016 Hemoglobin A1c (Glyco 7.4 % High Less than 6.0 5 finding HGB) Lipid Profile 06/08/2016 Triglycerides 147 mg/dL 6 (Trig/Chol/HDL) Cholesterol 135 mg/dL 7 HDL Cholesterol 32.4 mg/dL 8 LDL Cholesterol 73 mg/dL 9 Basic Metabolic Panel 06/08/2016 Sodium 132 mmol/L Low 133-145 Potassium 4.2 mmol/L 3.5-5.0 Chloride 94 mmol/L Low 101-111 Co2 Carbon Dioxide 32 mmol/L 22-32 Anion Gap 6 mmol/L 2-11 Glucose 185 mg/dL High 70-100 Blood Urea Nitrogen 9 mg/dL 6-24 Creatinine 0.73 mg/dL 0.67-1.17 BUN/Creatinine Ratio 12.3 8-20 Calcium 9.9 mg/dL 8.6-10.3 Egfr Non- 111.1 >60 Egfr 142.9 >60 10 HIV 1/2 AB Evaluation 06/08/2016 HIV 1 2 Antibody Nonreactive Nonreactive 11 Laboratory test finding 06/08/2016 Hepatitis C Antibody Nonreactive Nonreactive Urine Microalbumin 04/10/2016 Urine Creatinine 266.01 mg/dL Random Ur Microalbumin (mg/L) 542.1 mg/L Urine Microalbumin/Creatinine 203.7 ug/mg High <31 Laboratory test 04/09/2016 Hemoglobin A1c 6.2 5-7 finding Laboratory test 09/11/2015 Surgical Interface SEE RESULT 12 finding Order BELOW Laboratory test 09/11/2015 Point of Care 98 mg/dL 74-106 13 finding Glucose Laboratory test 03/21/2015 Hemoglobin A1c 6.0 % Less than 6.0 14 finding (Glyco HGB) Urine Microalbumin 03/21/2015 Urine Creatinine 94.41 mg/dL Random Ur Microalbumin (mg/L) 446.0 mg/L Urine Microalbumin/Creatinine 472.4 ug/mg High <31 Basic Metabolic Panel 03/21/2015 Sodium 128 mmol/L Low 133-145 Potassium 4.0 mmol/L 3.5-5.0 Chloride 91 mmol/L Low 101-111 Co2 Carbon Dioxide 28 mmol/L 22-32 Anion Gap 9 mmol/L 2-11 Glucose 99 mg/dL 70-100 Blood Urea Nitrogen 7 mg/dL 6-24 Creatinine 0.62 mg/dL Low 0.67-1.17 BUN/Creatinine Ratio 11.3 8-20 Calcium 9.3 mg/dL 8.6-10.3 Egfr Non- 134.7 >60 Egfr 173.2 >60 15 CBC Auto Diff 03/21/2015 White Blood Count 6.3 10^3/uL 3.5-10.8 Red Blood Count 4.60 10^6/uL 4.0-5.4 Hemoglobin 14.5 g/dL 14.0-18.0 Hematocrit 43 % 42-52 Mean Corpuscular Volume 93 fL 80-94 Mean Corpuscular Hemoglobin 32 pg High 27-31 Mean Corpuscular HGB Conc 34 g/dL 31-36 Red Cell Distribution Width 15 % 10.5-15 Platelet Count 106 10^3/uL Low 150-450 Mean Platelet Volume 8 um3 7.4-10.4 Abs Neutrophils 3.0 10^3/uL 1.5-7.7 Abs Lymphocytes 2.5 10^3/uL 1.0-4.8 Abs Monocytes 0.7 10^3/uL 0-0.8 Abs Eosinophils 0.1 10^3/uL 0-0.6 Abs Basophils 0 10^3/uL 0-0.2 Abs Nucleated RBC 0.01 10^3/uL Granulocyte % 47.8 % 38-83 Lymphocyte % 38.7 % 25-47 Monocyte % 10.8 % High 1-9 Eosinophil % 2.1 % 0-6 Basophil % 0.6 % 0-2 Nucleated Red Blood Cells % 0.2 Laboratory test finding 12/04/2014 Hemoglobin A1c 5.8 5-7 Urine Microalbumin Random 09/10/2014 Ur Microalbumin (mg/L) 719.0 mg/L 16 Urine Creatinine 74.52 mg/dL 16 Urine Microalbumin/Creatinine 964.8 ug/mg High <31 16 Lipid Profile (Trig/Chol/HDL) 09/10/2014 Triglycerides 125 mg/dL 16, 17 Cholesterol 192 mg/dL 16, 18 HDL Cholesterol 36.6 mg/dL 16, 19 LDL Cholesterol 130 mg/dL 16, 20 Laboratory test finding 09/10/2014 Glucose 96 mg/dL 70-100 16, 21 Lipid Profile (Trig/Chol/HDL) 09/10/2014 Triglycerides 162 mg/dL 16, 22 Cholesterol 211 mg/dL 16, 23 HDL Cholesterol 33.1 mg/dL 16, 24 LDL Cholesterol 146 mg/dL 16, 25 Laboratory test finding 09/10/2014 Glucose 78 mg/dL 70-100 16, 26 Urine Microalbumin 09/10/2014 Ur Microalbumin (mg/L) 183.0 mg/L 16 Random Urine Creatinine 97.19 mg/dL 16 Urine Microalbumin/Creatinine 188.2 ug/mg High <31 16 CBC No Diff 07/23/2014 White Blood Count 5.4 10^3/uL 4.8-10.8 Red Blood Count 4.58 10^6/uL 4.0-5.4 Hemoglobin 14.5 g/dL 14.0-18.0 Hematocrit 42 % 42-52 Mean Corpuscular Volume 93 fL 80-94 Mean Corpuscular Hemoglobin 32 pg High 27-31 Mean Corpuscular HGB Conc 34 g/dL 31-36 Red Cell Distribution Width 14 % 10.5-15 Platelet Count 105 10^3/uL Low 150-450 Mean Platelet Volume 8 um3 7.4-10.4 Comp Metabolic Panel 07/23/2014 Sodium 131 mmol/L Low 133-145 Potassium 3.9 mmol/L 3.5-5.0 Chloride 96 mmol/L Low 101-111 Co2 Carbon Dioxide 29 mmol/L 22-32 Anion Gap 6 mmol/L 2-11 Glucose 162 mg/dL High 70-100 Blood Urea Nitrogen 7 mg/dL 6-24 Creatinine 0.61 mg/dL Low 0.67-1.17 BUN/Creatinine Ratio 11.5 8-20 Calcium 9.2 mg/dL 8.6-10.3 Total Protein 6.5 g/dL 6.4-8.9 Albumin 4.2 g/dL 3.2-5.2 Globulin 2.3 g/dL 2-4 Albumin/Globulin Ratio 1.8 1-3 Total Bilirubin 0.50 mg/dL 0.2-1.0 Alkaline Phosphatase 48 U/L 34-104 Alt 21 U/L 7-52 Ast 24 U/L 13-39 Egfr Non- 137.7 >60 Egfr 177.2 >60 27 Laboratory test finding 07/23/2014 Valproic Acid 88.0 g/mL 50.0-100.0 Laboratory test finding 05/28/2014 Hemoglobin A1c 5.1 5-7 Comp Metabolic Panel 02/19/2014 Sodium 135 mmol/L 133-145 Potassium 4.2 mmol/L 3.5-5.0 28 Chloride 102 mmol/L 101-111 Co2 Carbon Dioxide 28 mmol/L 22-32 Anion Gap 5 mmol/L 2-11 Glucose 81 mg/dL 70-100 Blood Urea Nitrogen 8 mg/dL 6-24 Creatinine 0.62 mg/dL Low 0.67-1.17 BUN/Creatinine Ratio 12.9 8-20 Calcium 9.5 mg/dL 8.6-10.3 Total Protein 6.7 g/dL 6.4-8.9 Albumin 4.2 g/dL 3.2-5.2 Globulin 2.5 g/dL 2-4 Albumin/Globulin Ratio 1.7 1-3 Total Bilirubin 0.60 mg/dL 0.2-1.0 Alkaline Phosphatase 51 U/L 34-104 Alt 16 U/L 7-52 Ast 19 U/L 13-39 Egfr Non- 135.2 >60 Egfr 173.9 >60 29 Laboratory test finding 02/19/2014 Valproic Acid 98 g/mL 50.0-100.0 CBC No Diff 02/19/2014 White Blood Count 6.2 10^3/uL 4.8-10.8 Red Blood Count 4.48 10^6/uL 4.0-5.4 Hemoglobin 14.3 g/dL 14.0-18.0 Hematocrit 41 % Low 42-52 Mean Corpuscular Volume 92 fL 80-94 Mean Corpuscular Hemoglobin 32 pg High 27-31 Mean Corpuscular HGB Conc 35 g/dL 31-36 Red Cell Distribution Width 15 % 10.5-15 Platelet Count 141 10^3/uL Low 150-450 Mean Platelet Volume 8 um3 7.4-10.4 Laboratory test finding 12/05/2013 Valproic Acid 96 g/mL 50.0-100.0 CBC Auto Diff 10/16/2013 White Blood Count 6.7 10^3/uL 4.8-10.8 Red Blood Count 4.66 10^6/uL 4.0-5.4 Hemoglobin 14.6 g/dL 14.0-18.0 Hematocrit 42 % 42-52 Mean Corpuscular Volume 90 fL 80-94 Mean Corpuscular Hemoglobin 31 pg 27-31 Mean Corpuscular HGB Conc 35 g/dL 31-36 Red Cell Distribution Width 15 % 10.5-15 Platelet Count 129 10^3/uL Low 150-450 Mean Platelet Volume 8 um3 7.4-10.4 Abs Neutrophils 2.6 10^3/uL 1.5-7.7 Abs Lymphocytes 3.2 10^3/uL 1.0-4.8 Abs Monocytes 0.8 10^3/uL 0-0.8 Abs Eosinophils 0.1 10^3/uL 0-0.6 Abs Basophils 0.1 10^3/uL 0-0.2 Abs Nucleated RBC 0.01 10^3/uL Comp Metabolic Panel 10/16/2013 Sodium 135 mmol/L 133-145 Potassium 4.6 mmol/L 3.7-5.6 Chloride 99 mmol/L Low 101-111 Co2 Carbon Dioxide 31 mmol/L 22-32 Anion Gap 5 mmol/L 2-11 Glucose 88 mg/dL 70-100 Blood Urea Nitrogen 9 mg/dL 6-24 Creatinine 0.67 mg/dL 0.67-1.17 BUN/Creatinine Ratio 13.4 8-20 Calcium 10.1 mg/dL 8.6-10.3 Total Protein 7.4 g/dL 6.4-8.9 Albumin 4.6 g/dL 3.2-5.2 Globulin 2.8 g/dL 2-4 Albumin/Globulin Ratio 1.6 1-3 Total Bilirubin 0.50 mg/dL 0.2-1.0 Alkaline Phosphatase 49 U/L 34-104 Alt 21 U/L 7-52 Ast 22 U/L 13-39 Egfr Non- 124.1 >60 Egfr 159.6 >60 30 Manual Differential 10/16/2013 Neutrophil % 41 % 38-83 Lymphocytes % 50 % High 25-47 Monocytes % 7 % 0-13 Eosinophils % 2 % 0-6 RBC Morphology Normal Normal Laboratory test finding 10/16/2013 Pathologist Review (SEE NOTE) 31 CBC No Diff 04/17/2013 White Blood Count 6.4 10^3/uL 4.8-10.8 Red Blood Count 4.67 10^6/uL 4.0-5.4 Hemoglobin 14.1 g/dL 14.0-18.0 Hematocrit 42 % 42-52 Mean Corpuscular Volume 90 fL 80-94 Mean Corpuscular Hemoglobin 30 pg 27-31 Mean Corpuscular HGB Conc 34 g/dL 31-36 Red Cell Distribution Width 15 % 10.5-15 Platelet Count 118 10^3/uL Low 150-450 Mean Platelet Volume 9 um3 7.4-10.4 Comp Metabolic Panel 04/17/2013 Sodium 135 mmol/L 133-145 Potassium 4.0 mmol/L 3.5-5.0 Chloride 95 mmol/L Low 101-111 Co2 Carbon Dioxide 28.0 mmol/L 22-32 Anion Gap 12.0 mmol/L High 2-11 Glucose 130 mg/dL High 70-100 Blood Urea Nitrogen 11 mg/dL 6-24 Creatinine 0.70 mg/dL 0.50-1.40 BUN/Creatinine Ratio 15.7 8-20 Calcium 9.6 mg/dL 8.1-9.9 Total Protein 7.1 g/dL 6.2-8.1 Albumin 4.4 g/dL 3.6-5.4 Globulin 2.7 g/dL 2-4 Albumin/Globulin Ratio 1.6 1-3 Total Bilirubin 0.8 mg/dL 0.4-1.5 Alkaline Phosphatase 48 U/L 30-110 Alt 38 U/L 14-54 Ast 33 U/L 12-42 Egfr Non- 118.0 >60 Egfr 151.7 >60 32 Lipid Profile (Trig/Chol/HDL) 04/17/2013 Triglycerides 99 mg/dL 40-200 Cholesterol 147 mg/dL Less than 200 HDL Cholesterol 34 mg/dL Low 40-60 33 Cholesterol/HDL Ratio 4.3 Average 1-4.44 LDL Cholesterol 93.2 Less Than 100 34 Laboratory test finding 04/17/2013 Hemoglobin A1c 6.8 % High Less than 6.0 35 TSH (Thyroid Stimulating Horm) 1.90 miu/mL 0.34-5.60 36 Urine Microalbumin Random 04/13/2013 Ur Microalbumin (mg/L) 927.0 mg/L 37 Urine Creatinine 255.4 mg/dL Urine Microalbumin/Creatinine 363.0 High Less Than 31 Laboratory test finding 04/13/2013 Hemoglobin A1c 6.5 5-7 Laboratory test finding 10/07/2012 Hemoglobin A1c 6.8 5-7 Surgical Pathology 08/17/2012 S RUN DATE: <SEE NOTE> Lipid Panel 04/04/2012 Triglycerides 142 mg/dL 40-200 Cholesterol 145 mg/dL Less than 200 HDL Cholesterol 31 mg/dL Low 40-60 39 Cholesterol/HDL Ratio 4.7 Average High 1-4.44 LDL Cholesterol 85.6 mg/dL Less Than 100 40 Laboratory test finding 04/04/2012 Valproic Acid 90.3 g/mL 50.0-100.0 41 CMP Panel 04/04/2012 Sodium 139 mmol/L 133-145 Potassium 4.5 mmol/L 3.5-5.0 Chloride 102 mmol/L 101-111 Co2 Carbon Dioxide 30.0 mmol/L 22-32 Anion Gap 7.0 mmol/L 2-11 Glucose 107 mg/dL High 70-100 Blood Urea Nitrogen 8 mg/dL 6-24 Creatinine 0.70 mg/dL 0.50-1.40 BUN/Creatinine Ratio 11.4 8-20 Calcium 9.7 mg/dL 8.1-9.9 Total Protein 6.1 g/dL Low 6.2-8.1 Albumin 4.1 g/dL 3.6-5.4 Globulin 2.0 g/dL 2-4 Albumin/Globulin Ratio 2.1 1-3 Total Bilirubin 0.6 mg/dL 0.4-1.5 Alkaline Phosphatase 59 U/L 30-110 Alt 46 U/L 14-54 Ast 40 U/L 12-42 Egfr Non- 118.4 >60 Egfr 152.3 >60 42 CBC W/Electronic Diff 04/04/2012 White Blood Count 6.6 10^3/uL 4.8-10.8 Red Blood Count 4.46 10^6/uL 4.0-5.4 Hemoglobin 13.9 g/dL Low 14.0-18.0 Hematocrit 42 % 42-52 Mean Corpuscular Volume 94 fL 80-94 Mean Corpuscular Hemoglobin 31 pg 27-31 Mean Corpuscular HGB Conc 33 g/dL 31-36 Red Cell Distribution Width 16 % High 10.5-15 Platelet Count 145 10^3/uL Low 150-450 Mean Platelet Volume 9 um3 7.4-10.4 Abs Neutrophils 4.2 10^3/uL 1.5-7.7 Abs Lymphocytes 1.7 10^3/uL 1.0-4.8 Abs Monocytes 0.5 10^3/uL 0-0.8 Abs Eosinophils 0.2 10^3/uL 0-0.6 Abs Basophils 0 10^3/uL 0-0.2 Abs Nucleated RBC 0.02 10^3/uL Granulocyte % 63.7 % 38-83 Lymphocyte % 26.0 % 25-47 Monocyte % 7.2 % 1-9 Eosinophil % 3.1 % 0-6 Basophil % 0 % 0-2 Nucleated Red Blood Cells % 0.3 Laboratory test 04/04/2012 Hemoglobin A1c 6.8 % High Less than 6.0 43 finding Urine Microalbumin 04/04/2012 Ur Microalbumin 651.0 mg/L 44 Random (Mg/L) Urine Creatinine 313.8 mg/dL Urine Microalbumin/Creatinine 207.5 ug/mg High Less Than 31 Lipid Panel - [facility] 08/06/2011 CPK (Creatine Kinase) 101 U/L 0-200 16 Comp Metabolic Panel 08/06/2011 Sodium 139 mmol/L 135-145 16 Potassium 5.0 mmol/L 3.5-5.0 16 Chloride 103 mmol/L 101-111 16 Co2 (Carbon Dioxide) 26.0 mmol/L 22-32 16 Anion Gap 10.0 mmol/L 2-11 16, 45 Glucose 122 mg/dL High 70-100 16 BUN 12 mg/dL 6-24 16 Creatinine 0.7 mg/dL 0.50-1.40 16 One Over Creatinine 1.42 16 BUN/Creatinine Ratio 17.1 8-20 16 Calcium 10.0 mg/dL High 8.1-9.9 16 Total Protein 6.9 GM/DL 6.2-8.1 16 Albumin 4.6 GM/DL 3.6-5.4 16 Globulin 2.3 GM/DL 2-4 16 Albumin/Globulin Ratio 2.0 1-3 16 Bilirubin Total 1.9 mg/dL High 0.4-1.5 16, 46 Alkaline Phosphatase 56 U/L 39-117 16 Alt (SGPT) 33 U/L 17-63 16 Ast (Sgot) 53 U/L High 12-42 16 eGFR Non- 118.9 > 60 16 eGFR 152.9 > 60 16, 47 Lipid Profile (Trig/Chol/HDL) 08/06/2011 Triglyceride 102 mg/dL 40-200 16 Cholesterol 128 mg/dL Less Than 200 16, 48 High Density Lipoprotein 27 mg/dL Low 40-60 16, 49 Cholesterol/HDL Ratio 4.74 AVERAGE 1-4.97 16 Low Density Lipoprotein 81 mg/dL Less Than 100 16, 50 Urine Microalbumin Random 08/06/2011 Microalbumin (MG/L) 726.0 mg/L 16 Urine Creatinine 655.3 mg/dL 16 Bunny Alb/Creatinine Ratio 110.8 UG/MG High Less Than 30 16, 51 Laboratory test finding 06/13/2011 Troponin-I 0.01 NG/ML 0-0.06 52 Acetaminophen < 10 g/mL Low 10-30 53 Alcohol < 10.0 mg/dL None Detected 54 Salicylate < 4.0 mg/dL Less Than 30 55 TSH 2.24 MIU/ML 0.34-5.60 Valproic Acid (Depakene) 81.7 g/mL 50-100 56 Comp Metabolic Panel 06/13/2011 Sodium 140 mmol/L 135-145 Potassium 4.0 mmol/L 3.5-5.0 Chloride 100 mmol/L Low 101-111 Co2 (Carbon Dioxide) 30.0 mmol/L 22-32 Anion Gap 10.0 mmol/L 2-11 57 Glucose 134 mg/dL High 70-100 BUN 7 mg/dL 6-24 Creatinine 1.0 mg/dL 0.50-1.40 One Over Creatinine 1.00 BUN/Creatinine Ratio 7.0 Low 8-20 Calcium 9.6 mg/dL 8.1-9.9 Total Protein 7.5 GM/DL 6.2-8.1 Albumin 4.3 GM/DL 3.6-5.4 Globulin 3.2 GM/DL 2-4 Albumin/Globulin Ratio 1.3 1-3 Bilirubin Total 0.7 mg/dL 0.4-1.5 58 Alkaline Phosphatase 57 U/L 39-117 Alt (SGPT) 39 U/L 17-63 Ast (Sgot) 41 U/L 12-42 eGFR Non- 78.8 > 60 eGFR 101.3 > 60 59 Laboratory test finding 06/13/2011 BNP Evaluatr 73.0 pg/mL 0-100 CBC Auto Diff 06/13/2011 White Blood Count 7.6 CUMM 4.8-10.8 Red Cell Count 4.49 CUMM Low 4.6-6.2 Hemoglobin 14.2 g/dL 14.0-18.0 Hematocrit 40 % Low 42-52 Mean Corpuscular Volume 90 um3 80-94 Mean Corpuscular Hemoglob 32 pg High 27-31 Mean Corpuscular HGB Cone 35 g/dL 32-36 Redcell Distribution WDTH 16 % High 10.5-15 Platelet Count 129 CUMM Low 150-450 Mean Platelet Volume 8.4 um3 7.4-10.4 Gran % 54.4 % 38-83 Lymph % 35.3 % 25-47 Mononuclear % 9.2 % High 1-9 Eosinophil % 0.6 % 0-6 Basophil % 0.5 % 0-2 Abs Lymphs 2.7 1.0-4.8 Abs Mononuclear 0.7 0-0.8 Absolute Neutrophil Count 4.1 1.5-7.7 Abs Eosinophils 0 0-0.6 Abs Basophils 0 0-0.2 Lipid Panel - [facility] 03/09/2011 CPK (Creatine Kinase) 92 U/L 0-200 16 Comp Metabolic Panel 03/09/2011 Sodium 139 mmol/L 135-145 16 Potassium 4.5 mmol/L 3.5-5.0 16 Chloride 102 mmol/L 101-111 16 Co2 (Carbon Dioxide) 31.0 mmol/L 22-32 16 Anion Gap 6.0 mmol/L 2-11 16, 60 Glucose 131 mg/dL High 70-100 16 BUN 5 mg/dL Low 6-24 16 Creatinine 0.7 mg/dL 0.50-1.40 16 One Over Creatinine 1.42 16 BUN/Creatinine Ratio 7.1 Low 8-20 16 Calcium 10.1 mg/dL High 8.1-9.9 16 Total Protein 6.7 GM/DL 6.2-8.1 16 Albumin 4.3 GM/DL 3.6-5.4 16 Globulin 2.4 GM/DL 2-4 16 Albumin/Globulin Ratio 1.8 1-3 16 Bilirubin Total 0.6 mg/dL 0.4-1.5 16, 61 Alkaline Phosphatase 52 U/L 39-117 16 Alt (SGPT) 34 U/L 17-63 16 Ast (Sgot) 34 U/L 12-42 16 eGFR Non- 118.9 > 60 16 eGFR 152.9 > 60 16, 62 Lipid Profile (Trig/Chol/HDL) 03/09/2011 Triglyceride 94 mg/dL 40-200 16 Cholesterol 121 mg/dL Less Than 200 16, 63 High Density Lipoprotein 31 mg/dL Low 40-60 16, 64 Cholesterol/HDL Ratio 3.90 AVERAGE 1-4.97 16 Low Density Lipoprotein 71 mg/dL Less Than 100 16, 65 Laboratory test 03/09/2011 Hemoglobin A1c 7.0 % High Less Than 16, 66 finding 6.0 Urine Microalbumin 03/09/2011 Microalbumin (MG/L) 429.0 mg/L 16 Random Urine Creatinine 279.5 mg/dL 16 Bunny [place]/Creatinine Ratio 153.5 UG/MG High Less Than 30 16, 67 Laboratory test 03/09/2011 Valproic Acid 116.2 g/mL High 50-100 16, 68 finding (Depakene) Vad 03/09/2011 Vad Final NONREACTIVE Nonreactive 16, 69 Laboratory test 03/06/2011 Hemoglobin A1c 6.2 5-7 finding Laboratory test 08/19/2010 Hemoglobin A1c 6.7 % High Less Than 6.0 70 finding Urine Microalbumin 08/19/2010 Microalbumin 271.0 mg/L Random (MG/L) Urine Creatinine 127.38 mg/dL [place]/Creatinine Ratio 212.7 UG/MG High Less Than 30 71 Lipid Panel - [facility] 08/19/2010 CPK (Creatine Kinase) 210 U/L High 0-200 Comp Metabolic Panel 08/19/2010 Sodium 143 mmol/L 135-145 Potassium 4.0 mmol/L 3.5-5.0 Chloride 106 mmol/L 101-111 Co2 (Carbon Dioxide) 30.0 mmol/L 22-32 Anion Gap 7.0 mmol/L 2-11 72 Glucose 130 mg/dL High 70-100 BUN 10 mg/dL 6-24 Creatinine 0.53 mg/dL 0.50-1.40 One Over Creatinine 1.80 BUN/Creatinine Ratio 18.9 8-20 Calcium 9.3 mg/dL 8.1-9.9 Total Protein 7.2 GM/DL 6.2-8.1 Albumin 4.2 GM/DL 3.6-5.4 Globulin 3.0 GM/DL 2-4 Albumin/Globulin Ratio 1.4 1-3 Bilirubin Total 0.6 mg/dL 0.4-1.5 73 Alkaline Phosphatase 56 U/L 39-117 Alt (SGPT) 35 U/L 17-63 Ast (Sgot) 34 U/L 12-42 eGFR Non- 164.6 > 60 eGFR 211.6 > 60 74 Lipid Profile (Trig/Chol/HDL) 08/19/2010 Triglyceride 106 mg/dL 40-200 Cholesterol 131 mg/dL Less Than 200 75 High Density Lipoprotein 36 mg/dL Low 40-60 76 Cholesterol/HDL Ratio 3.64 AVERAGE 1-4.97 Low Density Lipoprotein 74 mg/dL Less Than 100 77 Laboratory test finding 08/19/2010 Valproic Acid (Depakene) 36.2 g/mL Low 50-100 78 Laboratory test finding 03/31/2010 Valproic Acid (Depakene) 90.8 g/mL 50-100 79 Urine Microalbumin 02/25/2010 Microalbumin (MG/L) 108.0 mg/L 16 Random Urine Creatinine 92.28 mg/dL 16 [place]/Creatinine Ratio 117.0 UG/MG High Less Than 30 16, 80 Laboratory test 02/25/2010 Hemoglobin A1c 6.6 % High Less Than 6.0 16, 81 finding Lipid Panel - [facility] 02/25/2010 CPK (Creatine 162 U/L 0-200 16 Kinase) Comp Metabolic 02/25/2010 Sodium 136 mmol/L 135-145 16 Panel Potassium 4.0 mmol/L 3.5-5.0 16 Chloride 100 mmol/L Low 101-111 16 Co2 (Carbon Dioxide) 29.0 mmol/L 22-32 16 Anion Gap 7.0 mmol/L 2-11 16, 82 Glucose 126 mg/dL High 70-100 16, 83 BUN 6 mg/dL 6-24 16 Creatinine 0.60 mg/dL 0.50-1.40 16 One Over Creatinine 1.60 16 BUN/Creatinine Ratio 10.0 8-20 16 Calcium 9.9 mg/dL 8.1-9.9 16 Total Protein 6.9 GM/DL 6.2-8.1 16 Albumin 4.6 GM/DL 3.6-5.4 16 Globulin 2.3 GM/DL 2-4 16 Albumin/Globulin Ratio 2.0 1-3 16 Bilirubin Total 0.8 mg/dL 0.4-1.5 16, 84 Alkaline Phosphatase 55 U/L 39-117 16 Alt (SGPT) 35 U/L 17-63 16 Ast (Sgot) 52 U/L High 12-42 16 eGFR Non- 151.6 > 60 16 eGFR 183.4 > 60 16, 85 Lipid Profile (Trig/Chol/HDL) 02/25/2010 Triglyceride 96 mg/dL 40-200 16 Cholesterol 128 mg/dL Less Than 200 16, 86 High Density Lipoprotein 36 mg/dL Low 40-60 16, 87 Cholesterol/HDL Ratio 3.56 AVERAGE 1-4.97 16 Low Density Lipoprotein 73 mg/dL Less Than 100 16, 88 Laboratory test finding 11/25/2009 Hemoglobin A1c 6.6 5-7 Surgical Pathology 07/24/2009 Surgical Pathology 89 <SEE NOTE> Laboratory test finding 07/19/2009 Calcium Ionized 4.79 mg/dL 4.65-5.28 16 Phosphorus 3.3 mg/dL 2.4-4.7 16 Lipid Panel 07/19/2009 Triglyceride 137 mg/dL 40-200 16 Cholesterol 132 mg/dL Less Than 200 16, 90 High Density Lipoprotein 28 mg/dL Low 40-60 16, 91 Cholesterol/HDL Ratio 4.71 AVERAGE 1-4.97 16 Low Density Lipoprotein 77 mg/dL Less Than 100 16, 92 Laboratory test finding 06/10/2009 Uric Acid 5.7 mg/dL 2.6-7.2 Homocysteine 19 umol/L () 93 Valproic Acid (Depakene) 36.8 g/mL Low 50-100 94 PSA,Diagnostic 0.32 NG/ML 0-4 95 C Reactive Protein High Sensit 4.7 mg/L < 7.48 96 Urine Microalbumin Random 06/10/2009 Microalbumin (MG/L) 165.0 mg/L Urine Creatinine 152.50 mg/dL [place]/Creatinine Ratio 108.1 UG/MG High Less Than 30 97 Thyroid Panel 06/10/2009 Free Thyroxine 0.89 NG/ML 0.61-1.24 98 Thyroxine 10.9 g/dL 5-12 Laboratory test finding 06/10/2009 TSH 3.42 MIU/ML 0.34-5.60 Urinalysis W/Microscopic 06/10/2009 Ua Color YELLOW Yellow Appearance-Urine CLEAR Clear Specific [place]well-Ur 1.016 1.010-1.030 Esterase-Urine NEGATIVE Negative Nitrite NEGATIVE Negative [id number] NEGATIVE Negative Protein-Urine 1+ Negative PH-Urine 6.0 5-9 Blood-Urine NEGATIVE Negative Ketones-Urine NEGATIVE Negative Bilirubin-Ur NEGATIVE Negative Glucose-Urine NEGATIVE Negative WBC-Urine RARE 0-5 RBC-Urine NONE SEEN 0-2 Laboratory test finding 06/10/2009 Hemoglobin A1c 8.5 % High Less Than 6.0 99 Lipid Profile 06/10/2009 Triglyceride 299 mg/dL High 40-200 (Trig/Chol/HDL) Cholesterol 234 mg/dL High Less Than 200 100 High Density Lipoprotein 20 mg/dL Low 40-60 101 Cholesterol/HDL Ratio 11.70 AVERAGE High 1-4.97 Low Density Lipoprotein 154 mg/dL High Less Than 100 102 CBC With Electronic Diff 06/10/2009 White Blood Count 7.3 CUMM 4.8-10.8 Red Cell Count 4.49 CUMM Low 4.6-6.2 Hemoglobin 14.3 g/dL 14.0-18.0 Hematocrit 41 % Low 42-52 Mean Corpuscular Volume 91 um3 80-94 Mean Corpuscular Hemoglob 32 pg High 27-31 Mean Corpuscular HGB Cone 35 g/dL 32-36 Redcell Distribution WDTH 15 % 10.5-15 Platelet Count 127 CUMM Low 150-450 Mean Platelet Volume 8.6 um3 7.4-10.4 Gran % 46.8 % 38-83 Lymph % 38.4 % 25-47 Mononuclear % 12.5 % High 1-9 Eosinophil % 1.8 % 0-6 Basophil % 0.5 % 0-2 Abs Lymphs 2.8 1.0-4.8 Abs Mononuclear 0.9 High 0-0.8 Absolute Neutrophil Count 3.4 1.5-7.7 Abs Eosinophils 0.1 0-0.6 Abs Basophils 0 0-0.2 C Peptide 06/10/2009 C-Peptide ng/mL 9.3 ng/mL 0.9-4.3 C-Peptide pmol/L 3100 pmol/L 297-1419 103 Comp Metabolic Panel 06/10/2009 Sodium 135 mmol/L 135-145 Potassium 3.9 mmol/L 3.5-5.0 Chloride 101 mmol/L 101-111 Co2 (Carbon Dioxide) 23.0 mmol/L 22-32 Anion Gap 11.0 mmol/L 2-11 104 Glucose 178 mg/dL High 70-100 105 BUN 8 mg/dL 6-24 Creatinine 0.80 mg/dL 0.50-1.40 One Over Creatinine 1.20 BUN/Creatinine Ratio 10.0 8-20 Calcium 10.1 mg/dL High 8.1-9.9 106 Total Protein 7.2 GM/DL 6.2-8.1 Albumin 4.3 GM/DL 3.6-5.4 Globulin 2.9 GM/DL 2-4 Albumin/Globulin Ratio 1.5 1-3 Bilirubin Total 0.7 mg/dL 0.4-1.5 107 Alkaline Phosphatase 63 U/L 39-117 Alt (SGPT) 42 U/L 17-63 Ast (Sgot) 46 U/L High 12-42 eGFR Non- 109.2 > 60 eGFR 132.1 > 60 108 Protime 03/26/2008 Protime 12.2 10.9-13.3 Inr 1.02 109 Basic Metabolic Panel 03/26/2008 Sodium 140 mmol/L 135-145 Potassium 3.8 mmol/L 3.5-5.0 Chloride 104 mmol/L 101-111 Co2 (Carbon Dioxide) 32.0 mmol/L 22-32 Anion Gap 4.0 mmol/L 2-11 110 Glucose 207 mg/dL High 70-100 111 BUN 14 mg/dL 6-24 Creatinine 0.80 mg/dL 0.50-1.40 One Over Creatinine 1.20 BUN/Creatinine Ratio 17.5 8-20 Calcium 9.8 mg/dL 8.1-9.9 112 CBC With Manual Diff 03/26/2008 White Blood Count 7.4 CUMM 4.8-10.8 Red Cell Count 4.44 CUMM Low 4.6-6.2 Hemoglobin 13.7 g/dL Low 14.0-18.0 Hematocrit 39 % Low 42-52 Mean Corpuscular Volume 88 um3 80-94 Mean Corpuscular Hemoglob 31 pg 27-31 Mean Corpuscular HGB Cone 35 g/dL 32-36 Redcell Distribution WDTH 14 % 10.5-15 Platelet Count 165 CUMM 150-450 Mean Platelet Volume 8.2 um3 7.4-10.4 Polysegmented Neutrophil 63 % 38-83 Lymphocyte 31 % 25-47 Monocyte 6 % 0-13 Absolute Neutrophil Count 4.6 RBC Morphology NORMAL Cath Panel 03/26/2008 PTT (Aptt) 22.3 20.1-28.2 113 1 Parts Counterman: [id number] 2 Because ethnic data is not always readily available, this report includes an eGFR for both -Americans and non- Americans. The National Kidney Disease Education Program (NKDEP) does not endorse the use of the MDRD equation for patients that are not between the ages of 18 and 70, are , have extremes of body size, muscle mass, or nutritional status, or are non- or non-. According to the National Kidney Foundation, irrespective of diagnosis, the stage of the disease is based on the level of kidney function: Stage Description GFR(mL/min/1.73 m(2)) 1 Kidney damage with normal or decreased GFR 90 2 Kidney damage with mild decrease in GFR 60-89 3 Moderate decrease in GFR 30-59 4 Severe decrease in GFR 15-29 5 Kidney failure <15 (or dialysis) 3 Therapeutic target for the treatment of diabetes Mellitus patients is <7% HBA1C, and in selective patients <6.0%.Please refer to [place] [employer] Diabetic care guidelines for further information. 4 Because ethnic data is not always readily available, this report includes an eGFR for both -Americans and non- Americans. The National Kidney Disease Education Program (NKDEP) does not endorse the use of the MDRD equation for patients that are not between the ages of 18 and 70, are , have extremes of body size, muscle mass, or nutritional status, or are non- or non-. According to the National Kidney Foundation, irrespective of diagnosis, the stage of the disease is based on the level of kidney function: Stage Description GFR(mL/min/1.73 m(2)) 1 Kidney damage with normal or decreased GFR 90 2 Kidney damage with mild decrease in GFR 60-89 3 Moderate decrease in GFR 30-59 4 Severe decrease in GFR 15-29 5 Kidney failure <15 (or dialysis) 5 Therapeutic target for the treatment of diabetes Mellitus patients is <7% HBA1C, and in selective patients <6.0%.Please refer to [place] [employer] Diabetic care guidelines for further information. 6 Desirable <150 Borderline high 150-199 High 200-499 Very High >500 7 Desirable <200 Borderline high 200-239 High >239 8 Low <40 Desirable: 40-60 High: >60 9 Desirable: <100 mg/dL Near Optimal: 100-129 mg/dL Borderline High: 130-159 mg/dL High: 160-189 mg/dL Very High: >189 mg/dL 10 Because ethnic data is not always readily available, this report includes an eGFR for both -Americans and non- Americans. The National Kidney Disease Education Program (NKDEP) does not endorse the use of the MDRD equation for patients that are not between the ages of 18 and 70, are , have extremes of body size, muscle mass, or nutritional status, or are non- or non-. According to the National Kidney Foundation, irrespective of diagnosis, the stage of the disease is based on the level of kidney function: Stage Description GFR(mL/min/1.73 m(2)) 1 Kidney damage with normal or decreased GFR 90 2 Kidney damage with mild decrease in GFR 60-89 3 Moderate decrease in GFR 30-59 4 Severe decrease in GFR 15-29 5 Kidney failure <15 (or dialysis) 11 It is recognized that currently available assays for the detection of antibodies to HIV-1 and/or HIV-2 may not detect all infected individuals. HIV antibodies may be undetectable in some stages of the infection and in some clinical conditions. The performance of this assay has not been established for populations of infants or children. Assayed by Chemiluminescence Microparticle Immunoassay on the Siemens Advia Centaur CP. Values obtained with different methods or kits cannot be used interchangeably.The diagnostic specificity of the ADVIA Centaur 1/O/2 Enhanced assay in the low risk population was 99.90% (6052/6058) with a 95% confidence interval of 99.78 to 99.96%. 12 SEE RESULT BELOW Name: JAGRUTI PINZON : [address]: Marcin Carroll MD Acct: [id number] Unit: [id number] AGE: 54 Location: ENDO Re09/11/15 SEX: M Status: REG REF SPEC: [id number] CORBY: 09/11/15-[address]: Marcin Carroll MD REQ: [id number] RECD: 09/11/15-1352 STATUS: RANJEET AMBROSE DR: Feliciano Mata [employer]ING INSPECTOR _ ORDERED: LEVEL IV/4 FINAL DIAGNOSIS 1. Colon, 25 cm, biopsy: -- Tubular adenoma. -- No high grade dysplasia or malignancy. 2. Colon, transverse, biopsy: -- Tubular adenoma. -- No high grade dysplasia or malignancy. 3. Colon, descending, biopsy: -- Tubular adenoma. -- No high grade dysplasia or malignancy. 4. Colon, 40 cm, biopsy: -- Tubular adenoma. -- No high grade dysplasia or malignancy. POST-OPERATIVE DIAGNOSIS Colonoscopy into cecum, prep fair, four polyps removed. Conclusions/Plan: Four polyps removed. GROSS DESCRIPTION 1. The specimen is received in formalin labeled, Colon Polyp at 25 cm, and consists of a 0.8 cm by up to 0.3 x 0.3 cm peraza-pink polypoid soft tissue fragment, which is inked, trisected and submitted entirely in one cassette. CONTINUED ON NEXT PAGE * ML=Testing performed at Main Lab DEPARTMENT OF PATHOLOGY, [address] [place] [address] Royal Greene M.D. Director [facility] # [id number] RUN DATE: 09/12/15 [facility] LAB LIVE PAGE 2 Patient: JAGRUTI PINZON [id number] (Continued) GROSS DESCRIPTION (Continued) GROSS DESCRIPTION (Continued) 2. The specimen is received in formalin labeled, Transverse Colon Polyp, and consists of a 0.5 x 0.4 x 0.2 cm peraza-pink polypoid soft tissue fragment, which is inked, bisected and submitted entirely in one cassette. 3. The specimen is received in formalin labeled, Biopsy Descending Colon Polyp, and consists of a 0.4 x 0.3 x 0.2 cm peraza-pink irregular soft tissue fragment, which is submitted entirely in one cassette. 4. The specimen is received in formalin labeled, Biopsy Colon Polyp at 40 cm, and consists of a 0.3 x 0.2 x 0.1 cm peraza-pink irregular soft tissue fragment, which is submitted entirely in one cassette. Signed (signature on file) Royal Greene MD 1454 END OF REPORT * ML=Testing performed at Main Lab DEPARTMENT OF PATHOLOGY, [address] [place] [address] Royal Greene M.D. Director [facility] # [id number] Parts Counterman: SHIKHA Rey 14 Therapeutic target for the treatment of diabetes Mellitus patients is <7% HBA1C, and in selective patients <6.0%.Please refer to [place] [employer] Diabetic care guidelines for further information. 15 Because ethnic data is not always readily available, this report includes an eGFR for both -Americans and non- Americans. The National Kidney Disease Education Program (NKDEP) does not endorse the use of the MDRD equation for patients that are not between the ages of 18 and 70, are , have extremes of body size, muscle mass, or nutritional status, or are non- or non-. According to the National Kidney Foundation, irrespective of diagnosis, the stage of the disease is based on the level of kidney function: Stage Description GFR(mL/min/1.73 m(2)) 1 Kidney damage with normal or decreased GFR 90 2 Kidney damage with mild decrease in GFR 60-89 3 Moderate decrease in GFR 30-59 4 Severe decrease in GFR 15-29 5 Kidney failure <15 (or dialysis) 16 FASTING 17 Desirable <150 Borderline high 150-199 High 200-499 Very High >500 18 Desirable <200 Borderline high 200-239 High >239 19 Low <40 Desirable: 40-60 High: >60 20 Desirable: <100 mg/dL Near Optimal: 100-129 mg/dL Borderline High: 130-159 mg/dL High: 160-189 mg/dL Very High: >189 mg/dL 21 FASTING 22 Desirable <150 Borderline high 150-199 High 200-499 Very High >500 23 Desirable <200 Borderline high 200-239 High >239 24 Low <40 Desirable: 40-60 High: >60 25 Desirable: <100 mg/dL Near Optimal: 100-129 mg/dL Borderline High: 130-159 mg/dL High: 160-189 mg/dL Very High: >189 mg/dL 26 FASTING 27 Because ethnic data is not always readily available, this report includes an eGFR for both -Americans and non- Americans. The National Kidney Disease Education Program (NKDEP) does not endorse the use of the MDRD equation for patients that are not between the ages of 18 and 70, are , have extremes of body size, muscle mass, or nutritional status, or are non- or non-. According to the National Kidney Foundation, irrespective of diagnosis, the stage of the disease is based on the level of kidney function: Stage Description GFR(mL/min/1.73 m(2)) 1 Kidney damage with normal or decreased GFR 90 2 Kidney damage with mild decrease in GFR 60-89 3 Moderate decrease in GFR 30-59 4 Severe decrease in GFR 15-29 5 Kidney failure <15 (or dialysis) 28 Potassium reference range changed effective 01/28/14 29 Because ethnic data is not always readily available, this report includes an eGFR for both -Americans and non- Americans. The National Kidney Disease Education Program (NKDEP) does not endorse the use of the MDRD equation for patients that are not between the ages of 18 and 70, are , have extremes of body size, muscle mass, or nutritional status, or are non- or non-. According to the National Kidney Foundation, irrespective of diagnosis, the stage of the disease is based on the level of kidney function: Stage Description GFR(mL/min/1.73 m(2)) 1 Kidney damage with normal or decreased GFR 90 2 Kidney damage with mild decrease in GFR 60-89 3 Moderate decrease in GFR 30-59 4 Severe decrease in GFR 15-29 5 Kidney failure <15 (or dialysis) 30 Because ethnic data is not always readily available, this report includes an eGFR for both -Americans and non- Americans. The National Kidney Disease Education Program (NKDEP) does not endorse the use of the MDRD equation for patients that are not between the ages of 18 and 70, are , have extremes of body size, muscle mass, or nutritional status, or are non- or non-. According to the National Kidney Foundation, irrespective of diagnosis, the stage of the disease is based on the level of kidney function: Stage Description GFR(mL/min/1.73 m(2)) 1 Kidney damage with normal or decreased GFR 90 2 Kidney damage with mild decrease in GFR 60-89 3 Moderate decrease in GFR 30-59 4 Severe decrease in GFR 15-29 5 Kidney failure <15 (or dialysis) 31 CBC and smear reviewed. Inverted PMN/lymph ratio noted. No blasts seen. Reviewed by Gissel Xiong MD 32 Because ethnic data is not always readily available, this report includes an eGFR for both -Americans and non- Americans. The National Kidney Disease Education Program (NKDEP) does not endorse the use of the MDRD equation for patients that are not between the ages of 18 and 70, are , have extremes of body size, muscle mass, or nutritional status, or are non- or non-. According to the National Kidney Foundation, irrespective of diagnosis, the stage of the disease is based on the level of kidney function: Stage Description GFR(mL/min/1.73 m(2)) 1 Kidney damage with normal or decreased GFR 90 2 Kidney damage with mild decrease in GFR 60-89 3 Moderate decrease in GFR 30-59 4 Severe decrease in GFR 15-29 5 Kidney failure <15 (or dialysis) 33 HDL Interpretation: Undesirable: High Risk: Less than 40 mg/dL Desirable: Low Risk: Greater than 60 mg/dL 34 LDL Interpretation: Low Risk Optimal Level: LDL Less than 100 mg/dL Near or Above Optimal: LDL 100-129 mg/dL Borderline High Risk: LDL 130-159 mg/dL High Risk: LDL 160-189 mg/dL Very High Risk: LDL Greater than 189 mg/dL 35 Therapeutic target for the treatment of diabetes Mellitus patients is <7% HBA1C, and in selective patients <6.0%.Please refer to [place] [employer] Association Diabetic care guidelines for further information. 36 FASTING 37 Microalbuminuria in a random sample is defined as: Microalbumin/Creatinine ratio of 30-299 ug/mg. 38 RUN DATE: 08/18/12 [facility] LAB LIVE PAGE 1 RUN TIME: 9590 [address] [place], [place] [address] Specimen Inquiry Name: JAGRUTI PINZON : [address]: Marcin Carroll MD Acct: [id number] Unit: [id number] AGE: 51 Location: ENDO Re08/17/12 SEX: M Status: REG REF SPEC: [id number] CORBY: 08/17/12- SUBM DR: Marcin Carroll MD REQ: [id number] RECD: 08/17/1246 STATUS: RANJEET AMBROSE DR: Jalil Linder MD _ ORDERED: LEVEL IV/2 FINAL DIAGNOSIS 1. Colon, transverse, biopsy: A. Focal adenomatous change. B. Large intestinal mucosa with mild architectural disorder compatible with repair. 2. Colon, 30 cm., biopsy: A. Tubular adenoma. B. No high grade dysplasia or malignancy. CLINICAL HISTORY Screening colonoscopy with history of colon polyps POST-OPERATIVE DIAGNOSIS Screening colonoscopy into cecum, prep fair to poor - 4 small polyps removed GROSS DESCRIPTION 1. The specimen is received in formalin labeled Jagruti Pinzon, Biopsy Transverse Polyp, and consists of multiple peraza, soft tissue fragments measuring 0.8 x 0.5 x 0.2 cm. Submitted entirely, one cassette. 2. The specimen is received in formalin labeled Jagruti Pinzon, Biopsy Colon Polyps at 30 cm., and consists of a peraza, soft tissue fragment measuring 0.3 x 0.2 x 0.1 cm. Submitted entirely, one cassette. Signed (signature on file) Royal Greene MD 1326 END OF REPORT * ML=Testing performed at Main Lab DEPARTMENT OF PATHOLOGY, [address] [place] [address] Royal Greene M.D. Director [facility] Permit #[id number] HDL Interpretation: Undesirable: High Risk: Less than 40 MG/DL Desirable: Low Risk: Greater than 60 MG/DL 40 LDL Interpretation: Low Risk Optimal Level: LDL Less than 100 MG/DL Near or Above Optimal: LDL 100-129 MG/DL Borderline High Risk: LDL 130-159 MG/DL High Risk: LDL 160-189 MG/DL Very High Risk: LDL Greater than 189 MG/DL 41 The detection limit for VALPROIC ACID is 10.0 mcg/ml . Values less than 10.0 mcg/ml cannot be accurately measured. 42 Because ethnic data is not always readily available, this report includes an eGFR for both -Americans and non- Americans. The National Kidney Disease Education Program (NKDEP) does not endorse the use of the MDRD equation for patients that are not between the ages of 18 and 70, are , have extremes of body size, muscle mass, or nutritional status, or are non- or non-. According to the National Kidney Foundation, irrespective of diagnosis, the stage of the disease is based on the level of kidney function: Stage Description GFR(mL/min/1.73 m(2)) 1 Kidney damage with normal or decreased GFR 90 2 Kidney damage with mild decrease in GFR 60-89 3 Moderate decrease in GFR 30-59 4 Severe decrease in GFR 15-29 5 Kidney failure <15 (or dialysis) 43 Therapeutic target for the treatment of diabetes Mellitus patients is <7% HBA1C, and in selective patients <6.0%.Please refer to [place] Diabetes Association Diabetic care guidelines for further information. 44 Microalbuminuria in a random sample is defined as: Microalbumin/Creatinine ratio of 30-299 ug/mg. 45 Anion gap measurement may be of limited value in the presence of any alkalosis, especially in a combined acid base disorder. . 46 A metabolite of Naproxen, O-desmethylnaproxen, has been shown to interfere with the Jendrassik-Lorenzo method for measuring total bilirubin. Samples from patients who have taken Naproxen have shown spurious elevation in total bilirubin levels. 47 Because ethnic data is not always readily available, this report includes an eGFR for both -Americans and non- Americans. The National Kidney Disease Education Program (NKDEP) does not endorse the use of the MDRD equation for patients that are not between the ages of 18 and 70, are , have extremes of body size, muscle mass, or nutritional status, or are non- or non-. According to the National Kidney Foundation, irrespective of diagnosis, the stage of the disease is based on the level of kidney function: Stage Description GFR(mL/min/1.73 m(2)) 1 Kidney damage with normal or decreased GFR 90 2 Kidney damage with mild decrease in GFR 60-89 3 Moderate decrease in GFR 30-59 4 Severe decrease in GFR 15-29 5 Kidney failure <15 (or dialysis) 48 CHOLESTEROL INTERPRETATION: Desirable: Less than 200 MG/DL Borderline-High Risk: 200-239 MG/DL High-Risk: 240 MG/DL and over 49 HDL INTERPRETATION: Undesirable: High Risk: Less than 40 MG/DL Desirable: Low Risk: Greater than 60 MG/DL 50 LDL INTERPRETATION: Low Risk Optimal Level: LDL Less than 100 MG/DL Near or Above Optimal: LDL 100-129 MG/DL Borderline High Risk: LDL 130-159 MG/DL High Risk: LDL 160-189 MG/DL Very High Risk: LDL Greater than 189 MG/DL 51 MICROALBUMINURIA IN A RANDOM SAMPLE IS DEFINED : MICROALBUMIN/CREATININE RATIO OF 30-299 ug/mg. . 52 New Reference Range and Interpretation effective 12/30/2001 TnI (ng/ml) INTERPRETATION Less Than 0.06 ng/mL NOT SUPPORTIVE OF DIAGNOSIS OF VA 0.06 - 0.50 ng/ml INDETERMINATE: SUGGEST SERIAL STUDIES IF CLINICALLY INDICATED. Greater than 0.5 ng/mL CONSISTENT WITH DIAGNOSIS OF VA . 53 TOXIC LEVELS: GREATER THAN 150 MCG/ML @ 4HR POST INGEST GREATER THAN 50 MCG/ML @ 12HR POST INGEST The detection limit for ACETAMINOPHEN is 10.0 mcg/ml . Values less than 10.0 mcg/ml cannot be accurately measured. . 54 The detection limit for ETHANOL is 10.0 mg/dl . Values less than 10.0 mg/dl cannot be accurately measured. . 55 The detection limit for SALICYLATE is 4.0 mg/dl. Values less than 4.0 mg/dl cannot be accurately measured. . 56 The detection limit for VALPROIC ACID is 10.0 mcg/ml . Values less than 10.0 mcg/ml cannot be accurately measured. . 57 Anion gap measurement may be of limited value in the presence of any alkalosis, especially in a combined acid base disorder. . 58 A metabolite of Naproxen, O-desmethylnaproxen, has been shown to interfere with the Jendrassik-Lorenzo method for measuring total bilirubin. Samples from patients who have taken Naproxen have shown spurious elevation in total bilirubin levels. 59 Because ethnic data is not always readily available, this report includes an eGFR for both -Americans and non- Americans. The National Kidney Disease Education Program (NKDEP) does not endorse the use of the MDRD equation for patients that are not between the ages of 18 and 70, are , have extremes of body size, muscle mass, or nutritional status, or are non- or non-. According to the National Kidney Foundation, irrespective of diagnosis, the stage of the disease is based on the level of kidney function: Stage Description GFR(mL/min/1.73 m(2)) 1 Kidney damage with normal or decreased GFR 90 2 Kidney damage with mild decrease in GFR 60-89 3 Moderate decrease in GFR 30-59 4 Severe decrease in GFR 15-29 5 Kidney failure <15 (or dialysis) 60 Anion gap measurement may be of limited value in the presence of any alkalosis, especially in a combined acid base disorder. . 61 A metabolite of Naproxen, O-desmethylnaproxen, has been shown to interfere with the Jendrassik-Rowlett method for measuring total bilirubin. Samples from patients who have taken Naproxen have shown spurious elevation in total bilirubin levels. 62 Because ethnic data is not always readily available, this report includes an eGFR for both -Americans and non- Americans. The National Kidney Disease Education Program (NKDEP) does not endorse the use of the MDRD equation for patients that are not between the ages of 18 and 70, are , have extremes of body size, muscle mass, or nutritional status, or are non- or non-. According to the National Kidney Foundation, irrespective of diagnosis, the stage of the disease is based on the level of kidney function: Stage Description GFR(mL/min/1.73 m(2)) 1 Kidney damage with normal or decreased GFR 90 2 Kidney damage with mild decrease in GFR 60-89 3 Moderate decrease in GFR 30-59 4 Severe decrease in GFR 15-29 5 Kidney failure <15 (or dialysis) 63 CHOLESTEROL INTERPRETATION: Desirable: Less than 200 MG/DL Borderline-High Risk: 200-239 MG/DL High-Risk: 240 MG/DL and over 64 HDL INTERPRETATION: Undesirable: High Risk: Less than 40 MG/DL Desirable: Low Risk: Greater than 60 MG/DL 65 LDL INTERPRETATION: Low Risk Optimal Level: LDL Less than 100 MG/DL Near or Above Optimal: LDL 100-129 MG/DL Borderline High Risk: LDL 130-159 MG/DL High Risk: LDL 160-189 MG/DL Very High Risk: LDL Greater than 189 MG/DL 66 THERAPEUTIC TARGET FOR THE TREATMENT OF DIABETES MELLITUS PATIENTS IS <7% HBA1C, AND IN SELECTIVE PATIENTS <6.0%. PLEASE REFER TO [place] [employer] DIABETIC CARE GUIDELINES FOR FURTHER INFORMATION. 67 MICROALBUMINURIA IN A RANDOM SAMPLE IS DEFINED : MICROALBUMIN/CREATININE RATIO OF 30-299 ug/mg. . 68 The detection limit for VALPROIC ACID is 10.0 mcg/ml . Values less than 10.0 mcg/ml cannot be accurately measured. . 69 FINAL INTERPRETATION: No HIV antibody is detected. . This information has been disclosed to you from confidential records which are protected by [place] State law. State law prohibits you from making further disclosure of this information without the specific written consent of the person to whom it pertains, or as otherwise permitted by law. Any unauthorized further disclosure in violation of state law may result in a fine or skilled nursing sentence or both. General authorization for the release of medical or other information is not, except in limited circumstances set forth in Part 63, Title 10, of [facility], sufficient authorization for further disclosure. Disclosure of confidential HIV information that occurs as the result of a general authorization for the release of medical or other information will be in violation of the state law and may result in a fine or a skilled nursing sentence. . 70 THERAPEUTIC TARGET FOR THE TREATMENT OF DIABETES MELLITUS PATIENTS IS <7% HBA1C, AND IN SELECTIVE PATIENTS <6.0%. PLEASE REFER TO [place] [employer] DIABETIC CARE GUIDELINES FOR FURTHER INFORMATION. 71 MICROALBUMINURIA IN A RANDOM SAMPLE IS DEFINED : MICROALBUMIN/CREATININE RATIO OF 30-299 ug/mg. . 72 Anion gap measurement may be of limited value in the presence of any alkalosis, especially in a combined acid base disorder. . 73 A metabolite of Naproxen, O-desmethylnaproxen, has been shown to interfere with the Jendrassik-Rowlett method for measuring total bilirubin. Samples from patients who have taken Naproxen have shown spurious elevation in total bilirubin levels. 74 Because ethnic data is not always readily available, this report includes an eGFR for both -Americans and non- Americans. The National Kidney Disease Education Program (NKDEP) does not endorse the use of the MDRD equation for patients that are not between the ages of 18 and 70, are , have extremes of body size, muscle mass, or nutritional status, or are non- or non-. According to the National Kidney Foundation, irrespective of diagnosis, the stage of the disease is based on the level of kidney function: Stage Description GFR(mL/min/1.73 m(2)) 1 Kidney damage with normal or decreased GFR 90 2 Kidney damage with mild decrease in GFR 60-89 3 Moderate decrease in GFR 30-59 4 Severe decrease in GFR 15-29 5 Kidney failure <15 (or dialysis) 75 CHOLESTEROL INTERPRETATION: Desirable: Less than 200 MG/DL Borderline-High Risk: 200-239 MG/DL High-Risk: 240 MG/DL and over 76 HDL INTERPRETATION: Undesirable: High Risk: Less than 40 MG/DL Desirable: Low Risk: Greater than 60 MG/DL 77 LDL INTERPRETATION: Low Risk Optimal Level: LDL Less than 100 MG/DL Near or Above Optimal: LDL 100-129 MG/DL Borderline High Risk: LDL 130-159 MG/DL High Risk: LDL 160-189 MG/DL Very High Risk: LDL Greater than 189 MG/DL 78 The detection limit for VALPROIC ACID is 10.0 mcg/ml . Values less than 10.0 mcg/ml cannot be accurately measured. . 79 The detection limit for VALPROIC ACID is 10.0 mcg/ml . Values less than 10.0 mcg/ml cannot be accurately measured. . 80 MICROALBUMINURIA IN A RANDOM SAMPLE IS DEFINED : MICROALBUMIN/CREATININE RATIO OF 30-299 ug/mg. . 81 THERAPEUTIC TARGET FOR THE TREATMENT OF DIABETES MELLITUS PATIENTS IS <7% HBA1C, AND IN SELECTIVE PATIENTS <6.0%. PLEASE REFER TO [place] [employer] DIABETIC CARE GUIDELINES FOR FURTHER INFORMATION. 82 Anion gap measurement may be of limited value in the presence of any alkalosis, especially in a combined acid base disorder. . 83 Note change in reference range as of 11/17/07. The change was based on recommendations from the [place] [employer]. 84 A metabolite of Naproxen, O-desmethylnaproxen, has been shown to interfere with the Jendrassik-Lorenzo method for measuring total bilirubin. Samples from patients who have taken Naproxen have shown spurious elevation in total bilirubin levels. 85 Because ethnic data is not always readily available, this report includes an eGFR for both -Americans and non- Americans. The National Kidney Disease Education Program (NKDEP) does not endorse the use of the MDRD equation for patients that are not between the ages of 18 and 70, are , have extremes of body size, muscle mass, or nutritional status, or are non- or non-. According to the National Kidney Foundation, irrespective of diagnosis, the stage of the disease is based on the level of kidney function: Stage Description GFR(mL/min/1.73 m(2)) 1 Kidney damage with normal or decreased GFR 90 2 Kidney damage with mild decrease in GFR 60-89 3 Moderate decrease in GFR 30-59 4 Severe decrease in GFR 15-29 5 Kidney failure <15 (or dialysis) 86 CHOLESTEROL INTERPRETATION: Desirable: Less than 200 MG/DL Borderline-High Risk: 200-239 MG/DL High-Risk: 240 MG/DL and over 87 HDL INTERPRETATION: Undesirable: High Risk: Less than 40 MG/DL Desirable: Low Risk: Greater than 60 MG/DL 88 LDL INTERPRETATION: Low Risk Optimal Level: LDL Less than 100 MG/DL Near or Above Optimal: LDL 100-129 MG/DL Borderline High Risk: LDL 130-159 MG/DL High Risk: LDL 160-189 MG/DL Very High Risk: LDL Greater than 189 MG/DL 89 ---- RUN DATE: 07/25/09 [facility] NMI LIVE PAGE 1 RUN TIME: 1550 Specimen Inquiry RUN USER: INTERFACE -- Name: JAGRUTI PINZON Status: REG REF Re07/24/09 Age/Sex: 48/M Unit#: [id number] Location: [facility] : 58 -- Specimen: [id number] Spec Date: 07/24/[address]: Marcin mariano MD Spec Type: SURGICAL P Received: 07/24/09-8401 Copies to: Eduar Rey SPECIMEN 1) BIOPSY CECAL POLYP 2) BIOPSY COLON POLYP AT HEPATIC FLEXURE 3) BIOPSY COLON POLYP AT 20 CM HISTORY POST-OP DIAGNOSIS: Colonoscopy to terminal ileum, prep poor (irrigated an d suctioned approximately 800 cc of murky fluid), four small polyps, internal hemorr hoids CLINICAL INFORMATION: Rectal bleeding, history of colon polyps GROSS DESCRIPTION 1) Specimen received in formalin labelled Jagruti Pinzon, Biopsy Cecal Polyp and consists of one fragment of peraza-yellow tissue measuring 0.4 x 0.3 x 0.3 cm. Submitted entirely, one cassette labelled one. 2) Specimen received in formalin labelled Jagruti Pinzon, Biopsy Colon Polyp at Hepatic Flexure and consists of one fragment of epraza-brown tissue measuring 0.4 x 0.3 x 0.3 cm. Submitted entirely, one cassette labelled two. 3) Specimen received in formalin labelled Jagruti Pinzon, Biopsy Colon Polyp at 20 cm. and consists of two fragments of peraza-brown tissue each measuring 0.3 x 0.3 x 0.3 cm. Submitted entirely, one cassette labelled three. DIAGNOSIS 1) Cecum, polyp, biopsy: A. Tubular adenoma. B. No high grade dysplasia or malignancy. 2) Colon at hepatic flexure, biopsy: A. Tubular adenoma. B. No high grade dysplasia or malignancy. 3) Colon, polyp at 20 cm., biopsy: Hyperplastic polyp. Signed Electronically by: GLYNN SHANNON 07/25/09 1549 -- DEPARTMENT OF PATHOLOGY, [address] [place] [address] [facility] Permit #[id number] Royal Greene M.D. Director Glynn Shannon M.D. [employer] Operator Dir jose angel -- 90 CHOLESTEROL INTERPRETATION: Desirable: Less than 200 MG/DL Borderline-High Risk: 200-239 MG/DL High-Risk: 240 MG/DL and over 91 HDL INTERPRETATION: Undesirable: High Risk: Less than 40 MG/DL Desirable: Low Risk: Greater than 60 MG/DL 92 LDL INTERPRETATION: Low Risk Optimal Level: LDL Less than 100 MG/DL Near or Above Optimal: LDL 100-129 MG/DL Borderline High Risk: LDL 130-159 MG/DL High Risk: LDL 160-189 MG/DL Very High Risk: LDL Greater than 189 MG/DL 93 In this sample, the concentration of total homocysteine was elevated. In alternative to a less likely possibility of an inborn error of methionine metabolism, this finding is considered an independent risk factor of thromboembolic vascular disease and could be related to acquired folate or cobalamin deficiency underlying neurological disorders. Consider plasma methylmalonic acid analysis. -- REFERENCE VALUE -- <=13 (Fasting) Test Performed by: [facility] Dpt of Lab Med and Pathology [address] [place] [address] Health Plan Specialist: Dada Quach III, M.D. 94 The detection limit for VALPROIC ACID is 10.0 mcg/ml . Values less than 10.0 mcg/ml cannot be accurately measured. . 95 * SERUM LEVELS OF PSA MEASURED USING THE MARCO ANTONIO JASMEET ACCESS HYBRITECH IMMUNOASSAY SHOULD NOT BE INTERPRETED ABSOLUTE EVIDENCE OF THE PRESENCE OR ABSENCE OF DISEASE. THE PSA VALUE SHOULD BE USED IN CONJUNCTION WITH OTHER PERTINENT CLINICAL DIAGNOSTIC PROCEDURES. A PSA value in the range of 0.1 to 0.6 ng/ml is indeterminate if being used as an indicator of recurrent or residual disease. . 96 Less Than 1.0......Low Risk of Cardiovascular Disease 1.0-3.0............Medium Risk (<2 Fold Increase) Greater Than 3.0...High Risk (Approximately 2-Fold Increase) The above guidelines are referenced in "Markers of Inflammation and Cardiovascular Disease: Application to Clinical and Public Health Practice." A Statement for Health Professionals from the Centers for Disease Control and Prevention and the [place] [employer]. (Reference: Circulation 2003 107:499-511) SERUM LEVELS OF HIGH SENSITIVITY C-REACTIVE PROTEIN MEASURED BY THE MARCO ANTONIO JASMEET LXi 725 SYSTEM SHOULD NOT BE INTERPRETTED ABSOLUTE EVIDENCE OF THE PRESENCE OR ABSENCE OF DISEASE. A HIGH SENSITIVITY CRP VALUE SHOULD BE USED IN CONJUNCTION WITH OTHER PERTINENT CLINICAL AND DIAGNOSTIC INFORMATION. 97 MICROALBUMINURIA IN A RANDOM SAMPLE IS DEFINED : MICROALBUMIN/CREATININE RATIO OF 30-299 ug/mg. . 98 PLEASE NOTE NEW REFERENCE RANGES. 99 THERAPEUTIC TARGET FOR THE TREATMENT OF DIABETES MELLITUS PATIENTS IS <7% HBA1C, AND IN SELECTIVE PATIENTS <6.0%. PLEASE REFER TO [place] [employer] DIABETIC CARE GUIDELINES FOR FURTHER INFORMATION. 100 CHOLESTEROL INTERPRETATION: Desirable: Less than 200 MG/DL Borderline-High Risk: 200-239 MG/DL High-Risk: 240 MG/DL and over 101 HDL INTERPRETATION: Undesirable: High Risk: Less than 40 MG/DL Desirable: Low Risk: Greater than 60 MG/DL 102 LDL INTERPRETATION: Low Risk Optimal Level: LDL Less than 100 MG/DL Near or Above Optimal: LDL 100-129 MG/DL Borderline High Risk: LDL 130-159 MG/DL High Risk: LDL 160-189 MG/DL Very High Risk: LDL Greater than 189 MG/DL 103 Test Performed by: [facility] Path[facility] [address] [place] [address] Health Plan Specialist: Dada Quach III, M.D. 104 Anion gap measurement may be of limited value in the presence of any alkalosis, especially in a combined acid base disorder. . 105 Note change in reference range as of 11/17/07. The change was based on recommendations from the [place] [employer]. 106 Please note change in reference range effective 07 . 107 A metabolite of Naproxen, O-desmethylnaproxen, has been shown to interfere with the Jendrassik-Lorenzo method for measuring total bilirubin. Samples from patients who have taken Naproxen have shown spurious elevation in total bilirubin levels. 108 Because ethnic data is not always readily available, this report includes an eGFR for both -Americans and non- Americans. The National Kidney Disease Education Program (NKDEP) does not endorse the use of the MDRD equation for patients that are not between the ages of 18 and 70, are , have extremes of body size, muscle mass, or nutritional status, or are non- or non-. According to the National Kidney Foundation, irrespective of diagnosis, the stage of the disease is based on the level of kidney function: Stage Description GFR(mL/min/1.73 m(2)) 1 Kidney damage with normal or decreased GFR 90 2 Kidney damage with mild decrease in GFR 60-89 3 Moderate decrease in GFR 30-59 4 Severe decrease in GFR 15-29 5 Kidney failure <15 (or dialysis) 109 GRACE VALUE=2.01 ( OF 03/04/07 Recommended INR for Patients on Oral Anticoagulants Prophylaxis 2.0 - 3.0 Treatment of thrombosis 2.0 - 3.0 Prevention of embolism 2.0 - 3.0 Prevention of embolism from prosthetic heart valves 2.5 - 3.5 110 Anion gap measurement may be of limited value in the presence of any alkalosis, especially in a combined acid base disorder. . 111 Note change in reference range as of 11/17/07. The change was based on recommendations from the [place] [employer]. 112 Please note change in reference range effective 07 . 113 PLEASE NOTE NEW REFERENCE RANGE EFFECTIVE 07. Procedures Date CPT Code Description Status Comment 04/19/2017 55510 EKG Tracing & Interpretation Completed 08/19/2016 67943 Treadmill Interp/Report Only Completed 08/19/2016 93614 Stress Test Supervsn W/Out I/R Completed 07/09/2016 77953 ECHO Stress Test Incl Perf Contiuous ekg Completed Monitoring W/Phys Superv 07/06/2016 75461 ECHO Transthoracic, Real-Time 2D With Completed Doppler And Color Flow 06/02/2016 98867 ECHO Transthoracic, Real-Time 2D With Completed Doppler And Color Flow 05/25/2016 65569 Echocardiogram, Limited Study Completed 05/25/2016 81787 Echocardiogram, Limited Study Completed 05/04/2016 53551 EKG Tracing & Interpretation Completed 09/11/2015 Colonoscopy Completed 08/19/2015 30731 EKG Tracing & Interpretation Completed 01/22/2015 04839 EKG Tracing & Interpretation Completed 05/21/2014 42841 EKG Tracing & Interpretation Completed 10/16/2013 60297 EKG Tracing & Interpretation Completed 04/18/2013 Diabetic Retinal Eye Exam Completed 03/10/2013 20831 EKG Tracing & Interpretation Completed 10/27/2012 Diabetic Foot Exam Completed 08/17/2012 Colonoscopy Completed 07/27/2012 38304 Inhalation TX For Acute Airway Obstruction Completed W/Nebulizer/Inhaler 05/09/2012 27502 EKG Tracing & Interpretation Completed 11/04/2011 47749 EKG Tracing & Interpretation Completed 02/27/2011 20485 EKG Tracing & Interpretation Completed 05/09/2010 33336 EKG Tracing & Interpretation Completed 11/07/2009 47142 EKG Tracing & Interpretation Completed 08/30/2009 24915 ECHO Stress Test Incl Perf Contiuous ekg Completed Monitoring W/Phys Superv 07/30/2009 59174 ECHO Transthoracic, Real-Time 2D With Completed Doppler And Color Flow 07/24/2009 Colonoscopy Completed 05/02/2009 06087 EKG Tracing & Interpretation Completed 10/30/2008 43153 EKG Tracing & Interpretation Completed 05/15/2008 74908 ECHO Transthoracic, Real-Time 2D With Completed Doppler And Color Flow 05/15/2008 10153 Color Doppler Completed 05/15/2008 90306 Echocardiogram Completed 05/15/2008 51480 Pulse Doppler & Continuous Wave Completed 03/30/2008 87797 Selective Coronary Angioplasty Completed 03/30/2008 58314 S/I/R Inj Proc Vent And Or Atrial Completed 03/30/2008 47753 S/I/R Inj Proc Vent And Or Atrial Completed 03/30/2008 67356 Coronary Angiography Completed 03/30/2008 01337 Inj Proc LFT Vent/LFT Atrl Angio Completed 03/30/2008 05882 Inj Proc LFT Vent/LFT Atrl Angio Completed 03/30/2008 85679 Left Heart Catheterization Completed 03/02/2008 76768 EKG Tracing & Interpretation Completed 02/03/2008 26945 Stress Test Supervsn W/Out I/R Completed 02/03/2008 19631 Stress Test Supervsn W/Out I/R Completed 02/03/2008 52831 Treadmill Interp/Report Only Completed 03/29/2002 Colonoscopy Completed f/u 10 yrs Encounters Type Date Location Provider CPT E/M Dx Office Visit 04/19/2017 4:00p [facility] Wilfredtarebeca Rubio 22859 Z01.810 Ludwig Roman I71.9 E78.4 I10 I25.10 Office Visit 02/17/2017 11:20a [facility] Jalil Linder, 29334 E11.22 Medicine - [place] Munroe,FACP M25.569 I10 Z23 Office Visit 11/16/2016 10:10a [facility] Jalil Linder, 73990 E11.22 Medicine - [place] Munroe,FACP K02.9 F20.0 M25.561 Z12.2 Z72.0 Office Visit 08/13/2016 10:10a [facility] Jalil Linder, 06435 M25.569 Medicine - [place] Nam Munroe,FACP E11.22 I10 Office Visit 07/22/2016 4:20p [facility] Wilfredtaybveronica Roman, 22456 I25.10 Ludwig R06.02 I10 E11.22 E78.4 I71.9 F17.210 Office Visit 06/08/2016 9:10a [facility] Jalil Linder, 23639 K56.69 Medicine - [place] Munroe,FACP I25.10 E11.22 E78.4 Z11.59 Z11.4 Office Visit 05/29/2016 7:00a [facility] Brendan, 89501 K56.60 [facility] PA Office Visit 05/29/2016 2:37p [facility] 81657 K56.69 Assoc,pc Hospitalists KAILA Hull I10 E78.5 F20.9 Office Visit 05/28/2016 7:00a [facility] Brendan, 50458 K56.60 [employer] [facility] Office Visit 05/28/2016 2:37p [facility] 48808 K56.69 [facility]oc[facility] Hospitalists KAILA Hull I10 E78.5 F20.9 Office Visit 05/27/2016 7:00a [facility], 30527 K56.60 [facility] PA Office Visit 05/27/2016 2:36p [facility] Leopoldo 84415 K56.69 Assoc,pc Hospitalists KAILA Hull I10 E78.5 F20.9 Office Visit 05/26/2016 2:35p [facility] Zenaidaramakrishna Alonzo, MIKE 64288 K56.69 Assoc,pc Hospitalists F20.9 I10 E78.5 Office Visit 05/26/2016 7:00a [facility] KAILA Major 63717 K56.60 Of [facility] Office Visit 05/04/2016 3:30p [facility] KAILA Donis 29349 I25.10 R06.02 I10 I45.10 Office Visit 04/09/2016 11:30a [facility] Medicine Jalil Linder, [address]25[address] M.D.,FACP E11.9 E78.2 E11.69 Office Visit 08/19/2015 1:40p [facility] Wilfredtaybeh S. Jessie, 12682 E11.69 M.DIlana I25.10 E78.4 I10 F17.290 I45.19 Office Visit 03/05/2015 10:30a [facility] [place] [address] E11.69 [place] Z23 E11.9 Office Visit 01/22/2015 2:40p [facility] Wilfredtaybveronica SIlana Roman, 57708 I25.10 M.D. E78.4 I10 F17.290 Office Visit 12/04/2014 10:00a [facility] [place] [address] 250.00 [place] Office Visit 09/10/2014 11:00a [facility] [place] [address] V72.84 [place] 709.8 250.00 414.01 272.4 401.1 305.1 295.12 278.00 Office Visit 08/28/2014 2:30p [facility] [place] [address] 250.40 [place] 250.00 Office Visit 05/21/2014 2:40p [facility] Wilfredtaybveronica SIlana Roman, 79336 414.01 M.DIlana 401.1 794.31 272.4 250.00 Office Visit 10/16/2013 2:00p [facility] Qutaybeh S. Maghaydah, 26253 414.01 M.DIlana 401.1 794.31 272.4 250.00 Office Visit 05/24/2013 12:10p [facility] Medicine Jalil Linder, 08563 782.3 - Basil Munroe,FACP 719.47 250.40 Office Visit 04/13/2013 1:30p [facility] Medicine Ramona Huff, N.P. 19552 250.40 - [place] 305.01 305.1 Office Visit 03/10/2013 2:40p [facility] Qutaybeh S. Maghaydah, 59605 305.1 M.D. 414.01 401.1 794.31 272.4 Office Visit 01/10/2013 1:00p [facility] Medicine Ramona Huff, N.P. 84853 250.40 - [place] 305.1 v04.81 Office Visit 10/07/2012 1:30p [facility] Medicine Ramona Huff, N.P. 49417 250.40 - [place] 278.00 305.1 250.00 Office Visit 07/29/2012 3:00p [facility] Medicine Jalil Linder, 79816 491.21 - Basil Munroe,FAC Office Visit 07/27/2012 8:40a [facility] Medicine Chirag Castaneda, 89360 466.0 - Basil Munroe Office Visit 05/09/2012 10:20a [facility] Qutaybeh S. 98104 250.40 Ludwig Roman 305.1 414.01 401.1 Office Visit 04/12/2012 10:30a [facility] Medicine Jalil Linder, 38628 V70.0 - Basil Munroe,FACP V76.51 250.40 709.8 305.1 V04.81 V05.3 Office Visit 11/04/2011 3:20p [facility] Qutaybeh S. Maximah, 71071 414.01 MIlanaD. 401.1 272.4 250.40 794.31 Office Visit 03/06/2011 3:40p DO Not Use [employer] [facility], 67749 V70.0 [facility] M.D.,FACP 250.00 414.01 V04.81 Office Visit 02/27/2011 [facility] 50206 250.00 M.D. 414.01 305.1 401.1 272.4 Office Visit 05/22/2010 11:20a DO Not Use [employer] [facility], 79348 250.00 [facility] M.D.,FACP 414.01 305.1 Office Visit 05/09/2010 10:40a [facility] S. [facility], [facility], 70939 414.01 M.D. 305.1 401.1 272.4 Office Visit 03/10/2010 10:20a DO Not Use [employer] At [facility], 00440 250.00 [facility].D.,FACP 496 250.40 V03.82 Office Visit 02/19/2010 1:40p DO Not Use [employer] [facility], 45359 724.9 [facility] M.D.,FACP 250.00 401.1 272.4 305.01 V76.51 V04.81 Office Visit 12/20/2009 2:40p DO Not Use [employer] [facility], 98608 466.0 [facility] M.D.,FACP 305.1 Office Visit 11/25/2009 9:20a DO Not Use [employer] At [facility], 80331 250.00 [facility] M.D. 401.1 272.4 305.1 Office Visit 11/07/2009 3:00p [facility] S. [facility], [facility], 92584 414.01 M.D. 401.1 272.4 Office Visit 08/22/2009 11:20a DO Not Use [employer] At [facility], 35498 250.00 [place] M.D. Office Visit 07/26/2009 11:20a DO Not Use [employer] At [facility], 07141 250.00 [place] M.D. Office Visit 07/18/2009 8:40a DO Not Use [employer] At [facility], 66457 250.00 [facility] M.D. 275.42 272.4 Office Visit 06/17/2009 8:40a DO Not Use [employer] At [facility], 84401 250.00 [place] M.D. 275.42 287.5 272.4 414.01 789.1 376.30 305.1 Office Visit 06/05/2009 8:40a DO Not Use [employer] [facility], 28128 792.1 [place] M.D. 110.3 Office Visit 05/20/2009 2:00p DO Not Use [employer] [facility], 03200 401.1 [facility] M.D. 414.01 272.4 250.00 278.00 789.1 376.30 305.1 303.90 Office Visit 05/02/2009 3:20p [facility] Qutaybeh S. Maghaydah, 25149 401.1 M.D. 414.01 272.4 Office Visit 10/30/2008 3:00p [facility] Qutaybeh S. Maghaydah, 13744 401.1 M.D. 414.01 272.4 Office Visit 05/01/2008 3:40p [facility] Qutaybeh S. Maghaydah, 17331 401.1 M.D. 272.4 414.01 Office Visit 04/05/2008 1:20p [facility] Miguel Carl, 19957 786.50 M.D. Office Visit 03/30/2008 9:00a [facility] Qutaybeh S. Maghaydah, 92164 786.50 M.D. 794.30 794.31 401.1 Office Visit 03/02/2008 10:20a [facility] Qutaybeh S. Maghaydah, 63023 786.50 M.D. 401.0 794.31 272.4 786.05 Plan of Care Future Appointment(s):08/11/2017 11:20 am - Jalil Linder M.D.,FACP at [facility] Internal Medicine - [address]05/31/2017 9:40 am - Issac Roman M.D. 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
--- OUTSIDE RECORDS SUMMARY | 2017-05-13 00:21 | XMS REPORT ---
:1960 External Reference #:[id number] Author Organization [facility] Address [address] [address] Phone [phone] Care Team Providers Name Role Phone Jalil Linder MD Primary Care Physician Unavailable Payers Type Date Identification Numbers Payment Provider Subscriber Medicare Primary Effective: Policy Number: Medicare aJgruti Pinzon 2012 [id number] PayID: [id number] [address] [place] [address] Commercial Expires: 2012 Policy Number: Total Care/[place] MNG Jagruti Pinzon [id number] [facility] PayID: [id number] [address] [place] [address] [place] Policy Number: [id number] Medicaid Jagruti Pinzon Group Name: [id number] [address] PayID: [id number] [place] [address] Problems Date Description Provider Status Onset: 12/20/2009 [...] 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., FACP Active of femur Note: RT distal femur [...] Form Strength Qnty SIG Indications Ordering Provider Quetiapine 02/17 Active Tablets 300mg 1 by mouth at Ordering Provider Farxiga 11/16 Active Tablets 5mg 30tab 1 by mouth s every day Marcos Linder M.D.,[facility] Lisinopril 08/13 Active Tablets 10mg 90tab Take 1 I10 s Tablet By Marcos Linder, Mouth Every M.D.,FACP Day Divalproex 06/[address] 500mg 90tab take 1 Other s tablet by Ordering mouth twice Provider a day Senokot 06/08 Active Tablets 8.6mg 30tab bid prn s Marcos Linder M.D.,FACP Linzess 06/08 Active Capsules 145mcg 90cap take one s capsule by Marcos Linder, mouth every M.D.,FACP day Risperdal 04/09 Active Suspension 50mg 2unit intramuscula Other Rec s r q2 weeks Ordering Provider Metformin HCL 10/01 Active Tablets 500mg 450ta take 3 bs tablets by Marcos Linder, mouth every M.D.,FACP morning 2 tab every night Atorvastatin 09/10 Active Tablets 10mg 90tab take 1 E78.4 Jalil s tablet at Marcos Linder, bedtime M.D.,FACP Aspirin 03/[address] 81mg 100ta Take 1 I25.10 Jalil bs Tablet By Marcos Linder, Mouth Every M.D.,FACP Day Lancets For 06/17 Active 60uni use as Jalil Contour /2009 ts directed Marcos Linder Glucometer M.Lei.,[facility] Contour 06/17 Active use as Stevanovi Glucometer /2009 directed Eduar frost M.D. Test Strips For 06/17 Active 60uni check fsbg Jalil Contour /2009 ts fasting and Marcos Linder Glucometer 1-2 hours M.D.,FACP after eating a few times a week. Mylanta Active Suspension 200-200-2 15ml by Unknown /0000 0mg/5ML mouth every 4 hours for dyspepsia Metoprolol Active Tablets 100mg 180ta Take 1 Jalil Tartrate / bs Tablet By Marcos Linder, Mouth Twice M.D.,FACP A Day Lisinopril 08/13 Hx Tablets 10mg 90tab Take 1 I10 s Tablet By Marcos Linder, - Mouth Every M.D.,FACP /2017 Lisinopril 05/04 Hx Tablets 5mg 30tab 1 tab by I10 Qutaybeh s mouth every S. - day Maghaydah 08/13 Ludwig /2016 Polyethylene 04/23 Hx Granules 3350 2gm 17gm mix Jalil Glycol 3349 with 8 oz of Marcos Linder - fluids once M.DIlana,[facility] 04/18 a day in the am Pt states he is no longer taking Colace 04/23 Hx Capsules 100mg 120ca 2 tabs bid ps Lucien Cervantes M.D.,[facility] 06/03 Quetiapine 04/09 Hx Tablets 400mg 30tab take one Other Fumarate s tablet by Ordering - mouth at Provider 02/17 bedtime Quetiapine 04/09 Hx Tablets 100mg 60tab 1 tab by Other Fumarate s mouth every Ordering - night at Provider 02/17 bedtime with 400 mg tab Senna 04/09 Hx Tablets 8.6mg 60tab 1 by mouth s twice a day Lucien Cervantes M.D.,[facility] 06/03 Lisinopril 04/09 Hx Tablets 2.5mg 90tab 1 by mouth I10 s every day Lucien Cervantes M.D.,[facility] 05/04 Lisinopril 01/12 Hx Tablets 10mg 30tab 1 by mouth I10 s every day Lucien Cervantes M.D.,[facility] 04/09 Pioglitazone 10/01 Hx Tablets 30mg 30tab Take 1 E11.69 Jalil HCL s Tablet Every Marcos Linder - Adriane Munroe,[facility] 04/09 Pioglitazone 07/28 Hx Tablets 30mg 30tab 1 po qd (pt E11.9 Jalil HCL s states he Marcos Linder - takes just Ludwig,[facility] 08/18 combination, this one was d/c) Metformin HCL 07/28 Hx Tablets 850mg 60tab 1 by mouth Jalil s twice a day Lucien Cervantes M.D.,[facility] 08/17 Benazepril HCL 09/10 Hx Tablets 10mg 30tab take 1 I10 s tablet by Marcos Linder, - mouth every M.D.,FACP Pioglitazone 09/25 Hx Tablets 15-850mg 180ta take 1 250.00 Jalil HCL-Metformin bs tablet by Marcos Linder, HCL - mouth twice M.D.,[facility] 07/28 Furosemide 05/24 Hx Tablets 20mg 7tabs 1 po qam 782.3 Lucien Cervantes M.D.,[facility] 08/28 Simvastatin 04/13 Hx Tablets 40mg 30tab 1 po qhs Ramona s Daria - N.P. 08/28 Hydroxyzine HCL 02/01 Hx Tablets 25mg 90tab 1 po qd prn s Lucien Cervantes M.D.,[facility] 08/28 Pioglitazone 10/07 Hx Tablets 15-850mg 60tab Take 1 250.00 Jalil HCL/Metformin s Tablet By Marcos Linder, HCL - Mouth Twice M.D.,[facility] 09/25 /2013 Cheratussin ac 07/29 Hx Syrup 100-10mg/ 200un 10 ml po qid 491.21 5ML its prn Lucien Cervantes M.D.,[facility] 10/07 Prednisone 07/29 Hx Tablets 10mg 30tab 4 tabs qd 491.21 s for 4 days, Marcos Linder, - then reduce M.D.,[facility] 10/07 by 1 tab /2012 every 2 days until finished Amoxicillin/Pot 07/27 Hx Tablets 875-125mg 20tab 1 po bid 466.0 Chirag assium s Pachikara Clavulanate - , Guillermo.DIlana 10/07 Proair HFA With 07/27 Hx Aerosol 108(90Bas 1unit 2 puffs ih 466.0 Chirag Spacer e) s q4h prn Pachikara - mcg/Act , MIlanaDIlana 10/07 Pioglitazone 01/26 Hx Tablets 15-850mg 60tab Take 1 250.00 Jalil HCL/Metformin s Tablet By Marcos Linder, HCL - Mouth Twice M.D.,[facility] 10/07 A Day /2012 Simvastatin 09/16 Hx Tablets 40mg 90tab Take 1 272.4 s Tablet By Marcos Linder, - Mouth At M.DIlana,[facility] 01/10 Bedtime Zyprexa 03/11 Hx Tablets 15mg 30tab po qpm(10mg) s Lucien Cervantes M.D.,[facility] 01/10 Zyprexa 03/06 Hx Tablets 10mg 60tab 1.5 tabs po s qpm Lucien Cervantes M.D.,[facility] 03/11 Divalproex 03/[address] 500mg 90tab take 2 s tablets po Marcos Linder, - bid Guillermo.DIlana,[facility] 06/08 Lisinopril 03/10 Hx Tablets 2.5mg 90tab 1 po qd 250.40 s Lucien Cervantes M.D.,[facility] 05/09 Actoplus Met 02/19 Hx Tablets 15-850mg 60tab Take 1 250.00 s Tablet By Marcos Linder, - Mouth Twice M.DIlana,[facility] 01/26 Clarithromycin 12/20 Hx Tablets 500mg 14tab 1 po bid for 466.0 s 7 days Lucien Cervantes M.D.,[facility] 02/19 Metformin HCL 06/17 Hx Tablets 850mg 60tab 1 po bid 272.4 s Lucien Cervantes M.D.,[facility] 02/19 250.00 Actos 06/17/2009 - Hx Tablets 15mg 60tabs 1 po bid 250.00 Jalil 02/19/2010 Marcos Linder M.D.,[facility] Crestor 06/17/2009 - Hx Tablets 20mg 30.0tabs Take 1 Tablet 272.4 Manav- Driss 09/17/2011 By Mouth Marcos Linder, Every Evening M.DIlana,[facility] Ketoconazole 06/05/2009 - Hx Cream 2% 60gm 1 application 110.3 Stevanovic, 08/22/2009 daily Ludwig Wittyprexa 05/20/2009 - Hx Tablets 15mg 60tabs 1.5 tabs po Chris E. 03/06/2011 qhs. Tiffanie M.D. Metoprolol 03/20/2009 - Hx Tablets 50mg 60tabs Take 1 Tablet Jalil Tartrate 05/09/2012 By Mouth Marcos Linder, Twice A Day M.DIlana,FACP Toprol XL 10/30/2008 - Hx Tablets ER 50mg 135tabs 1 po am and Qutaybeh S. 03/20/2009 24HR 1/2 pm Ludwig Roman Tricor 03/02/2008 - Hx Tablets 145mg 90tabs 1 po qd Stevanovic, 06/17/2009 Ludwig Witt Depakote 03/02/2008 - Hx Tablets DR 500mg 90tabs 3 po qd Jalil 03/19/2010 Marcos Linder M.D.,FAC Zyprexa 03/02/2008 - Hx Tablets 20mg one po qd Qutaybeh S. 05/20/2009 Ludwig Roman Toprol XL 03/02/2008 - Hx Tablets ER 50mg 30tabs 1 po qd Qutaybeh S. 10/30/2008 24HR Ludwig Roman Metformin - Hx 500mg 60units 1 po bid Stevanovic, 06/17/2009 Ludwig Witt Geodon - Hx Capsules 60mg 2 po qpm Unknown 05/09/2012 Olanzapine - Hx Tablets 15mg 90tabs daily (pt Jalil 01/13/2016 states he Marcos Linder, takes 23mg MClaudia,FACP daily) Hydroxyzine HCL - Hx Tablets 25mg 30tabs take 1 tablet Unknown 10/07/2012 daily Pioglitazone - Hx Tablets 15-500 60tabs 1 tablet E11.69 Manav Morrison HCL-Metformin 10/02/2015 mg twice a day Marcos Linder HCL Guillermo.Marcos,FACP Benztropine - Hx Tablets 1mg 60tabs Take 1 Tablet Jalil Mesylate 04/09/2016 By Mouth Marcos Linder, Twice A Day Ludwig,FACP Risperdal - Hx Tablets 2mg 1 po bid Unknown 04/09/2016 Colace - Hx Capsules 100mg two tabs by Unknown 06/08/2016 mouth bid Immunizations CPT Code Status Date Vaccine Lot # [id number] Given 02/17/2017 Influenza Virus Vaccine, Quadrivalent, Split, [id number] Preservative Free 30112 Given 02/17/2017 Pneumococcal Conjugate Vaccine 13 Valent For [id number] Intramuscular Use 56756 Given 03/05/2015 Tetanus And Diptheria (Td) For Adult Use [id number] Preservative Free 64836 Given 03/05/2015 Influenza Virus Vaccine, Quadrivalent, Split, [id number] Preservative Free 07787 Given 01/10/2013 Flu Vaccine Split Virus Preservative Free For [id number] Indiv 3Yr Older 64644 Given 10/14/2012 Hepatitis B Vaccine Adult Dosage [id number] 72735 Given 05/16/2012 Hepatitis B Vaccine Adult Dosage 48679 Given 05/16/2012 Hepatitis B Vaccine Adult Dosage [id number] 30978 Given 04/12/2012 Hepatitis B Vaccine Adult Dosage [id number] 74899 Given 04/12/2012 Influenza Virus 3Yrs & Over 17065 Given 03/06/2011 Influenza Virus 3Yrs & Over [id number] 00367 Given 03/10/2010 Pneumonia Vaccine 56523 Given 03/10/2010 Pneumonia Vaccine [id number] 91169 Given 02/19/2010 Influenza Virus 3Yrs & Over Vital Signs Date Vital Result Comment 04/19/2017 Height 68 inches 5'8" Weight 268.25 [...] Test Result H/L Range Note Laboratory test 03/27/2017 Point of Care Glucose [...] Urine Microalbumin Random 09/10/2014 Ur Microalbumin (mg/L) 183.0 mg/L 16 Urine Creatinine 97.19 mg/dL 16 Urine Microalbumin/Creatinine 188.2 ug/mg High <31 16 Laboratory test finding 09/10/2014 Glucose 78 mg/dL 70-100 16, 17 Lipid Profile (Trig/Chol/HDL) 09/10/2014 Triglycerides 162 mg/dL 16, 18 Cholesterol 211 mg/dL 16, 19 HDL Cholesterol 33.1 mg/dL 16, 20 LDL Cholesterol 146 mg/dL 16, 21 Laboratory test finding 09/10/2014 Glucose 96 mg/dL 70-100 16, 22 Urine Microalbumin 09/10/2014 Ur Microalbumin (mg/L) 719.0 mg/L 16 Random Urine Creatinine 74.52 mg/dL 16 Urine Microalbumin/Creatinine 964.8 ug/mg High <31 16 Lipid Profile (Trig/Chol/HDL) 09/10/2014 Triglycerides 125 mg/dL 16, 23 Cholesterol 192 mg/dL 16, 24 HDL Cholesterol 36.6 mg/dL 16, 25 LDL Cholesterol 130 mg/dL 16, 26 CBC No Diff 07/23/2014 White Blood Count [...] test finding 05/28/2014 Hemoglobin A1c 5.1 5-7 CBC No Diff 02/19/2014 White Blood Count [...] Volume 8 um3 7.4-10.4 Comp Metabolic Panel 02/19/2014 Sodium 135 mmol/L [...] finding 02/19/2014 Valproic Acid 98 g/mL 50.0-100.0 Laboratory test finding 12/05/2013 Valproic Acid 96 [...] (Thyroid Stimulating Horm) 1.90 miu/mL 0.34-5.60 36 Laboratory test finding 04/13/2013 Hemoglobin A1c 6.5 5-7 Urine Microalbumin Random 04/13/2013 Ur Microalbumin (mg/L) 927.0 mg/L 37 Urine Creatinine 255.4 mg/dL Urine Microalbumin/Creatinine 363.0 High Less Than 31 Laboratory test finding 10/07/2012 Hemoglobin A1c 6.8 5-7 Surgical Pathology 08/17/2012 S RUN DATE: <SEE NOTE> Lipid Panel 04/04/2012 Triglycerides 142 mg/dL 40-200 Cholesterol 145 mg/dL Less than 200 HDL Cholesterol 31 mg/dL Low 40-60 39 Cholesterol/HDL Ratio 4.7 Average High 1-4.44 LDL Cholesterol 85.6 mg/dL Less Than 100 40 CMP Panel 04/04/2012 Sodium 139 mmol/L 133-145 [...] Egfr Non- 118.4 >60 Egfr 152.3 >60 41 CBC W/Electronic Diff 04/04/2012 White Blood Count [...] A1c 6.8 % High Less than 6.0 42 finding Urine Microalbumin 04/04/2012 Ur Microalbumin 651.0 mg/L 43 Random (Mg/L) Urine Creatinine 313.8 mg/dL Urine Microalbumin/Creatinine 207.5 ug/mg High Less Than 31 Laboratory test finding 04/04/2012 Valproic Acid 90.3 g/mL 50.0-100.0 44 Lipid Panel - [facility] 08/06/2011 CPK (Creatine Kinase) 101 U/L 0-200 [...] UG/MG High Less Than 30 16, 51 CBC Auto Diff 06/13/2011 White Blood Count [...] Eosinophils 0 0-0.6 Abs Basophils 0 0-0.2 Laboratory test finding 06/13/2011 BNP Evaluatr 73.0 pg/mL 0-100 Comp Metabolic Panel 06/13/2011 Sodium 140 mmol/L 135-145 Potassium 4.0 mmol/L 3.5-5.0 Chloride 100 mmol/L Low 101-111 Co2 (Carbon Dioxide) 30.0 mmol/L 22-32 Anion Gap 10.0 mmol/L 2-11 52 Glucose 134 mg/dL High 70-100 BUN 7 mg/dL 6-24 Creatinine 1.0 mg/dL 0.50-1.40 One Over Creatinine 1.00 BUN/Creatinine Ratio 7.0 Low 8-20 Calcium 9.6 mg/dL 8.1-9.9 Total Protein 7.5 GM/DL 6.2-8.1 Albumin 4.3 GM/DL 3.6-5.4 Globulin 3.2 GM/DL 2-4 Albumin/Globulin Ratio 1.3 1-3 Bilirubin Total 0.7 mg/dL 0.4-1.5 53 Alkaline Phosphatase 57 U/L 39-117 Alt (SGPT) 39 U/L 17-63 Ast (Sgot) 41 U/L 12-42 eGFR Non- 78.8 > 60 eGFR 101.3 > 60 54 Laboratory test finding 06/13/2011 Troponin-I 0.01 NG/ML 0-0.06 55 Acetaminophen < 10 g/mL Low 10-30 56 Alcohol < 10.0 mg/dL None Detected 57 Salicylate < 4.0 mg/dL Less Than 30 58 TSH 2.24 MIU/ML 0.34-5.60 Valproic Acid (Depakene) 81.7 g/mL 50-100 59 Vad 03/09/2011 Vad Final NONREACTIVE Nonreactive 16, 60 Laboratory test 03/09/2011 Valproic Acid 116.2 g/mL High 50-100 16, 61 finding (Depakene) Urine Microalbumin 03/09/2011 Microalbumin 429.0 mg/L 16 Random (MG/L) Urine Creatinine 279.5 mg/dL 16 Bunny Alb/Creatinine Ratio 153.5 UG/MG High Less Than 30 16, 62 Laboratory test finding 03/09/2011 Hemoglobin A1c 7.0 % High Less Than 6.0 16, 63 Lipid Profile 03/09/2011 Triglyceride 94 mg/dL 40-200 16 (Trig/Chol/HDL) Cholesterol 121 mg/dL Less Than 200 16, 64 High Density Lipoprotein 31 mg/dL Low 40-60 16, 65 Cholesterol/HDL Ratio 3.90 AVERAGE 1-4.97 16 Low Density Lipoprotein 71 mg/dL Less Than 100 16, 66 Comp Metabolic Panel 03/09/2011 Sodium 139 mmol/L 135-145 16 Potassium 4.5 mmol/L 3.5-5.0 16 Chloride 102 mmol/L 101-111 16 Co2 (Carbon Dioxide) 31.0 mmol/L 22-32 16 Anion Gap 6.0 mmol/L 2-11 16, 67 Glucose 131 mg/dL High 70-100 16 BUN 5 mg/dL Low 6-24 16 Creatinine 0.7 mg/dL 0.50-1.40 16 One Over Creatinine 1.42 16 BUN/Creatinine Ratio 7.1 Low 8-20 16 Calcium 10.1 mg/dL High 8.1-9.9 16 Total Protein 6.7 GM/DL 6.2-8.1 16 Albumin 4.3 GM/DL 3.6-5.4 16 Globulin 2.4 GM/DL 2-4 16 Albumin/Globulin Ratio 1.8 1-3 16 Bilirubin Total 0.6 mg/dL 0.4-1.5 16, 68 Alkaline Phosphatase 52 U/L 39-117 16 Alt (SGPT) 34 U/L 17-63 16 Ast (Sgot) 34 U/L 12-42 16 eGFR Non- 118.9 > 60 16 eGFR 152.9 > 60 16, 69 Lipid Panel - [facility] 03/09/2011 CPK (Creatine Kinase) 92 U/L 0-200 16 Laboratory test finding 03/06/2011 Hemoglobin A1c 6.2 5-7 Laboratory test finding 08/19/2010 Valproic Acid (Depakene) 36.2 g/mL Low 50-100 70 Lipid Profile 08/19/2010 Triglyceride 106 mg/dL 40-200 (Trig/Chol/HDL) Cholesterol 131 mg/dL Less Than 200 71 High Density Lipoprotein 36 mg/dL Low 40-60 72 Cholesterol/HDL Ratio 3.64 AVERAGE 1-4.97 Low Density Lipoprotein 74 mg/dL Less Than 100 73 Comp Metabolic Panel 08/19/2010 Sodium 143 mmol/L 135-145 Potassium 4.0 mmol/L 3.5-5.0 Chloride 106 mmol/L 101-111 Co2 (Carbon Dioxide) 30.0 mmol/L 22-32 Anion Gap 7.0 mmol/L 2-11 74 Glucose 130 mg/dL High 70-100 BUN 10 mg/dL 6-24 Creatinine 0.53 mg/dL 0.50-1.40 One Over Creatinine 1.80 BUN/Creatinine Ratio 18.9 8-20 Calcium 9.3 mg/dL 8.1-9.9 Total Protein 7.2 GM/DL 6.2-8.1 Albumin 4.2 GM/DL 3.6-5.4 Globulin 3.0 GM/DL 2-4 Albumin/Globulin Ratio 1.4 1-3 Bilirubin Total 0.6 mg/dL 0.4-1.5 75 Alkaline Phosphatase 56 U/L 39-117 Alt (SGPT) 35 U/L 17-63 Ast (Sgot) 34 U/L 12-42 eGFR Non- 164.6 > 60 eGFR 211.6 > 60 76 Lipid Panel - [facility] 08/19/2010 CPK (Creatine Kinase) 210 U/L High 0-200 Urine Microalbumin Random 08/19/2010 Microalbumin (MG/L) 271.0 mg/L Urine Creatinine 127.38 mg/dL Bunny Alb/Creatinine Ratio 212.7 UG/MG High Less Than 30 77 Laboratory test 08/19/2010 Hemoglobin A1c 6.7 % High Less Than 78 finding 6.0 Laboratory test 03/31/2010 Valproic Acid 90.8 g/mL 50-100 79 finding (Depakene) Laboratory test 02/25/2010 Hemoglobin A1c 6.6 % High Less Than 16, 80 finding 6.0 Urine Microalbumin 02/25/2010 Microalbumin (MG/L) 108.0 mg/L 16 Random Urine Creatinine 92.28 mg/dL 16 Bunny Alb/Creatinine Ratio 117.0 UG/MG High Less Than 30 16, 81 Lipid Panel - [facility] 02/25/2010 CPK (Creatine Kinase) 162 U/L 0-200 16 Comp Metabolic Panel 02/25/2010 Sodium 136 mmol/L 135-145 16 Potassium 4.0 mmol/L 3.5-5.0 16 Chloride 100 [...] 77 mg/dL Less Than 100 16, 92 Comp Metabolic Panel 06/10/2009 Sodium 135 mmol/L 135-145 Potassium 3.9 mmol/L 3.5-5.0 Chloride 101 mmol/L 101-111 Co2 (Carbon Dioxide) 23.0 mmol/L 22-32 Anion Gap 11.0 mmol/L 2-11 93 Glucose 178 mg/dL High 70-100 94 BUN 8 mg/dL 6-24 Creatinine 0.80 mg/dL 0.50-1.40 One Over Creatinine 1.20 BUN/Creatinine Ratio 10.0 8-20 Calcium 10.1 mg/dL High 8.1-9.9 95 Total Protein 7.2 GM/DL 6.2-8.1 Albumin 4.3 GM/DL 3.6-5.4 Globulin 2.9 GM/DL 2-4 Albumin/Globulin Ratio 1.5 1-3 Bilirubin Total 0.7 mg/dL 0.4-1.5 96 Alkaline Phosphatase 63 U/L 39-117 Alt (SGPT) 42 U/L 17-63 Ast (Sgot) 46 U/L High 12-42 eGFR Non- 109.2 > 60 eGFR 132.1 > 60 97 C Peptide 06/10/2009 C-Peptide ng/mL 9.3 ng/mL 0.9-4.3 C-Peptide pmol/L 3100 pmol/L 297-1419 98 CBC With Electronic Diff 06/10/2009 White Blood [...] Eosinophils 0.1 0-0.6 Abs Basophils 0 0-0.2 Lipid Profile (Trig/Chol/HDL) 06/10/2009 Triglyceride 299 mg/dL High 40- 200 Cholesterol 234 mg/dL High Less Than 200 99 High Density Lipoprotein 20 mg/dL Low 40-60 100 Cholesterol/HDL Ratio 11.70 AVERAGE High 1-4.97 Low Density Lipoprotein 154 mg/dL High Less Than 100 101 Laboratory test finding 06/10/2009 Hemoglobin A1c 8.5 % High Less Than 6.0 102 Urinalysis W/Microscopic 06/10/2009 Ua Color YELLOW Yellow Appearance-Urine CLEAR Clear Specific Eleele-Ur 1.016 1.010-1.030 Esterase-Urine NEGATIVE Negative Nitrite NEGATIVE Negative Ucumhsoqaezx-Mi-LYO NEGATIVE Negative Protein-Urine 1+ Negative PH-Urine 6.0 5-9 Blood-Urine NEGATIVE Negative Ketones-Urine NEGATIVE Negative Bilirubin-Ur NEGATIVE Negative Glucose-Urine NEGATIVE Negative WBC-Urine RARE 0-5 RBC-Urine NONE SEEN 0-2 Laboratory test finding 06/10/2009 TSH 3.42 MIU/ML 0.34-5.60 Thyroid Panel 06/10/2009 Free Thyroxine 0.89 NG/ML 0.61-1.24 103 Thyroxine 10.9 g/dL 5-12 Laboratory test finding 06/10/2009 Uric Acid 5.7 mg/dL 2.6-7.2 Homocysteine 19 umol/L () 104 Valproic Acid (Depakene) 36.8 g/mL Low 50-100 105 PSA,Diagnostic 0.32 NG/ML 0-4 106 C Reactive Protein High Sensit 4.7 mg/L < 7.48 107 Urine Microalbumin Random 06/10/2009 Microalbumin (MG/L) 165.0 mg/L Urine Creatinine 152.50 mg/dL Bunny Alb/Creatinine Ratio 108.1 UG/MG High Less Than 30 108 Cath Panel 03/26/2008 PTT (Aptt) 22.3 20.1-28.2 109 CBC With Manual Diff 03/26/2008 White Blood [...] Absolute Neutrophil Count 4.6 RBC Morphology NORMAL Basic Metabolic Panel 03/26/2008 Sodium 140 mmol/L 135-145 Potassium 3.8 mmol/L 3.5-5.0 Chloride 104 mmol/L 101-111 Co2 (Carbon Dioxide) 32.0 mmol/L 22-32 Anion Gap 4.0 mmol/L 2-11 110 Glucose 207 mg/dL High 70-100 111 BUN 14 mg/dL 6-24 Creatinine 0.80 mg/dL 0.50-1.40 One Over Creatinine 1.20 BUN/Creatinine Ratio 17.5 8-20 Calcium 9.8 mg/dL 8.1-9.9 112 Protime 03/26/2008 Protime 12.2 10.9-13.3 Inr 1.02 113 1 Take Out Waiter: [id number] 2 Because ethnic data is not always [...] and in selective patients <6.0%.Please refer to [place] [employer] Diabetic care guidelines for further [...] and in selective patients <6.0%.Please refer to [place] [employer] Diabetic care guidelines for further [...] [address]: Marcin Carroll MD Acct: [id number] Unit: [id number] AGE: 54 Location: ENDO Re09/11/15 SEX: M Status: REG REF SPEC: [id number] CORBY: 09/11/15-1299 [facility] DR: Marcin Carroll MD REQ: [id number] RECD: 09/11/15 STATUS: RANJEET AMBROSE DR: Feliciano Mata [employer] ATTENDANT _ ORDERED: LEVEL IV/4 FINAL DIAGNOSIS 1. [...] performed at Main Lab DEPARTMENT OF PATHOLOGY, [address] [place] [address] Royal Greene M.D. Director [facility] # [id number] RUN DATE: 09/12/15 [facility] LAB LIVE PAGE 2 Patient: JAGRUTI PINZON [id number] (Continued) GROSS DESCRIPTION (Continued) GROSS DESCRIPTION (Continued) [...] performed at Main Lab DEPARTMENT OF PATHOLOGY, [address] [place] [address] Royal Greene M.D. Director [facility] # [id number] 13 Take Out Waiter: [id number] JONATHAN RAYA Z 14 Therapeutic target for the treatment of diabetes Mellitus patients is <7% HBA1C, and in selective patients <6.0%.Please refer to [place] [employer] Diabetic care guidelines for further [...] failure <15 (or dialysis) 16 FASTING 17 FASTING 18 Desirable <150 Borderline high 150-199 High 200-499 Very High >500 19 Desirable <200 Borderline high 200-239 High >239 20 Low <40 Desirable: 40-60 High: >60 21 Desirable: <100 mg/dL Near Optimal: 100-129 mg/dL Borderline High: 130-159 mg/dL High: 160-189 mg/dL Very High: >189 mg/dL 22 FASTING 23 Desirable <150 Borderline high 150-199 High 200-499 Very High >500 24 Desirable <200 Borderline high 200-239 High >239 25 Low <40 Desirable: 40-60 High: >60 26 Desirable: <100 mg/dL Near Optimal: 100-129 mg/dL Borderline High: 130-159 mg/dL High: 160-189 mg/dL Very High: >189 mg/dL 27 Because ethnic data is not always [...] and in selective patients <6.0%.Please refer to [place] [employer] Diabetic care guidelines for further information. 36 FASTING 37 Microalbuminuria in a random sample is defined as: Microalbumin/Creatinine ratio of 30-299 ug/mg. 38 RUN DATE: 08/18/12 [facility] LAB LIVE PAGE 1 RUN TIME: [address] [place] [id number] Specimen Inquiry Name: JAGRUTI PINZON : [address]: Marcin Carroll MD Acct: [id number] Unit: [id number] AGE: 51 Location: ENDO Re08/17/12 SEX: M Status: REG REF SPEC: [id number] CORBY: 08/17/12- SUBM DR: Marcin Carroll MD REQ: [id number] RECD: 08/17/12 STATUS: RANJEET AMBROSE DR: Jalil Linder MD [...] performed at Main Lab DEPARTMENT OF PATHOLOGY, [address] [place] [address] Royal rGeene M.D. Director [facility] Permit #[id number] HDL Interpretation: Undesirable: High Risk: Less than 40 MG/DL Desirable: Low Risk: Greater than 60 MG/DL 40 LDL Interpretation: Low Risk Optimal Level: LDL Less than 100 MG/DL Near or Above Optimal: LDL 100-129 MG/DL Borderline High Risk: LDL 130-159 MG/DL High Risk: LDL 160-189 MG/DL Very High Risk: LDL Greater than 189 MG/DL 41 Because ethnic data is not always readily [...] 15-29 5 Kidney failure <15 (or dialysis) 42 Therapeutic target for the treatment of diabetes Mellitus patients is <7% HBA1C, and in selective patients <6.0%.Please refer to [place] [employer] Diabetic care guidelines for further information. 43 Microalbuminuria in a random sample is defined as: Microalbumin/Creatinine ratio of 30-299 ug/mg. 44 The detection limit for VALPROIC ACID is 10.0 mcg/ml . Values less than 10.0 mcg/ml cannot be accurately measured. 45 Anion gap measurement may be of limited value in the presence of any alkalosis, especially in a combined acid base disorder. . 46 A metabolite of Naproxen, O-desmethylnaproxen, has been shown to interfere with the Jendrassik-Vandervoort method for measuring total bilirubin. Samples from [...] MICROALBUMIN/CREATININE RATIO OF 30-299 ug/mg. . 52 Anion gap measurement may be of limited value in the presence of any alkalosis, especially in a combined acid base disorder. . 53 A metabolite of Naproxen, O-desmethylnaproxen, has been shown to interfere with the Jendrassik-Vandervoort method for measuring total bilirubin. Samples from patients who have taken Naproxen have shown spurious elevation in total bilirubin levels. 54 Because ethnic data is not always readily [...] 15-29 5 Kidney failure <15 (or dialysis) 55 New Reference Range and Interpretation effective 12/30/2001 TnI (ng/ml) INTERPRETATION Less Than 0.06 ng/mL NOT SUPPORTIVE OF DIAGNOSIS OF [place] 0.06 - 0.50 ng/ml INDETERMINATE: SUGGEST SERIAL STUDIES IF CLINICALLY INDICATED. Greater than 0.5 ng/mL CONSISTENT WITH DIAGNOSIS OF [place] . 56 TOXIC LEVELS: GREATER THAN 150 MCG/ML @ 4HR POST INGEST GREATER THAN 50 MCG/ML @ 12HR POST INGEST The detection limit for ACETAMINOPHEN is 10.0 mcg/ml . Values less than 10.0 mcg/ml cannot be accurately measured. . 57 The detection limit for ETHANOL is 10.0 mg/dl . Values less than 10.0 mg/dl cannot be accurately measured. . 58 The detection limit for SALICYLATE is 4.0 mg/dl. Values less than 4.0 mg/dl cannot be accurately measured. . 59 The detection limit for VALPROIC ACID is 10.0 mcg/ml . Values less than 10.0 mcg/ml cannot be accurately measured. . 60 FINAL INTERPRETATION: No HIV antibody is detected. . This information has been disclosed to you from confidential records which are protected by [place] State law. State law prohibits you from making further disclosure of this information without the specific written consent of the person to whom it pertains, or as otherwise permitted by law. Any unauthorized further disclosure in violation of state law may result in a fine or half-way sentence or both. General authorization for the release of medical or other information is not, except in limited circumstances set forth in Part 63, Title 10, of [facility], sufficient authorization for further disclosure. Disclosure of confidential HIV information that occurs as the result of a general authorization for the release of medical or other information will be in violation of the state law and may result in a fine or a half-way sentence. . 61 The detection limit for VALPROIC ACID is 10.0 mcg/ml . Values less than 10.0 mcg/ml cannot be accurately measured. . 62 MICROALBUMINURIA IN A RANDOM SAMPLE IS DEFINED : MICROALBUMIN/CREATININE RATIO OF 30-299 ug/mg. . 63 THERAPEUTIC TARGET FOR THE TREATMENT OF DIABETES MELLITUS PATIENTS IS <7% HBA1C, AND IN SELECTIVE PATIENTS <6.0%. PLEASE REFER TO [place] [employer] DIABETIC CARE GUIDELINES FOR FURTHER INFORMATION. 64 CHOLESTEROL INTERPRETATION: Desirable: Less than 200 MG/DL Borderline-High Risk: 200-239 MG/DL High-Risk: 240 MG/DL and over 65 HDL INTERPRETATION: Undesirable: High Risk: Less than 40 MG/DL Desirable: Low Risk: Greater than 60 MG/DL 66 LDL INTERPRETATION: Low Risk Optimal Level: LDL Less than 100 MG/DL Near or Above Optimal: LDL 100-129 MG/DL Borderline High Risk: LDL 130-159 MG/DL High Risk: LDL 160-189 MG/DL Very High Risk: LDL Greater than 189 MG/DL 67 Anion gap measurement may be of limited value in the presence of any alkalosis, especially in a combined acid base disorder. . 68 A metabolite of Naproxen, O-desmethylnaproxen, has been shown to interfere with the Jendrassik-Lorenzo method for measuring total bilirubin. Samples from patients who have taken Naproxen have shown spurious elevation in total bilirubin levels. 69 Because ethnic data is not always readily [...] 15-29 5 Kidney failure <15 (or dialysis) 70 The detection limit for VALPROIC ACID is 10.0 mcg/ml . Values less than 10.0 mcg/ml cannot be accurately measured. . 71 CHOLESTEROL INTERPRETATION: Desirable: Less than 200 MG/DL Borderline-High Risk: 200-239 MG/DL High-Risk: 240 MG/DL and over 72 HDL INTERPRETATION: Undesirable: High Risk: Less than 40 MG/DL Desirable: Low Risk: Greater than 60 MG/DL 73 LDL INTERPRETATION: Low Risk Optimal Level: LDL Less than 100 MG/DL Near or Above Optimal: LDL 100-129 MG/DL Borderline High Risk: LDL 130-159 MG/DL High Risk: LDL 160-189 MG/DL Very High Risk: LDL Greater than 189 MG/DL 74 Anion gap measurement may be of limited value in the presence of any alkalosis, especially in a combined acid base disorder. . 75 A metabolite of Naproxen, O-desmethylnaproxen, has been shown to interfere with the Jendrassik-Vandervoort method for measuring total bilirubin. Samples from patients who have taken Naproxen have shown spurious elevation in total bilirubin levels. 76 Because ethnic data is not always readily [...] 15-29 5 Kidney failure <15 (or dialysis) 77 MICROALBUMINURIA IN A RANDOM SAMPLE IS DEFINED : MICROALBUMIN/CREATININE RATIO OF 30-299 ug/mg. . 78 THERAPEUTIC TARGET FOR THE TREATMENT OF DIABETES MELLITUS PATIENTS IS <7% HBA1C, AND IN SELECTIVE PATIENTS <6.0%. PLEASE REFER TO [place] [employer] DIABETIC CARE GUIDELINES FOR FURTHER INFORMATION. 79 The detection limit for VALPROIC ACID is 10.0 mcg/ml . Values less than 10.0 mcg/ml cannot be accurately measured. . 80 THERAPEUTIC TARGET FOR THE TREATMENT OF DIABETES MELLITUS PATIENTS IS <7% HBA1C, AND IN SELECTIVE PATIENTS <6.0%. PLEASE REFER TO [place] [employer] DIABETIC CARE GUIDELINES FOR FURTHER INFORMATION. 81 MICROALBUMINURIA IN A RANDOM SAMPLE IS DEFINED : MICROALBUMIN/CREATININE RATIO OF 30-299 ug/mg. . 82 Anion gap measurement may be of limited value in the presence of any alkalosis, especially in a combined acid base disorder. . 83 Note change in reference range as of 11/17/07. The change was based on recommendations from the [place] [employer]. 84 A metabolite of Naproxen, [...] 189 MG/DL 89 ---- RUN DATE: 07/25/09 [facility] NMI LIVE PAGE 1 RUN TIME: 1550 Specimen Inquiry RUN USER: INTERFACE -- Name: JAGRUTI PINZON Status: REG REF Re07/24/09 Age/Sex: 48/M Unit#: [id number] Location: [facility]. : 58 -- Specimen: [id number] SOUT Spec Date: 07/24/[address] [facility] [address]: Marcin mariano MD Spec Type: SURGICAL P Received: 07/24/09-0654 Copies to: Eduar Rey SPECIMEN 1) BIOPSY [...] Flexure and consists of one fragment of peraza-brown tissue measuring 0.4 x 0.3 x 0.3 [...] SHANNON 07/25/09 1549 -- DEPARTMENT OF PATHOLOGY, [address] [place] [address] [facility] Permit #[id number] Royal Greene M.D. Director Glynn Shannon M.D. Catering Chef Dir jose angel -- 90 CHOLESTEROL INTERPRETATION: [...] Risk: LDL Greater than 189 MG/DL 93 Anion gap measurement may be of limited value in the presence of any alkalosis, especially in a combined acid base disorder. . 94 Note change in reference range as of 11/17/07. The change was based on recommendations from the [place] [employer]. 95 Please note change in reference range effective 07 . 96 A metabolite of Naproxen, O-desmethylnaproxen, has been shown to interfere with the Jendrassik-Lorenzo method for measuring total bilirubin. Samples from patients who have taken Naproxen have shown spurious elevation in total bilirubin levels. 97 Because ethnic data is not always readily [...] 15-29 5 Kidney failure <15 (or dialysis) 98 Test Performed by: [facility] Dpt of Lab Med and Pathology [address] [place] [id number] Gas Leak Inspector: Dada Quach III, M.D. 99 CHOLESTEROL INTERPRETATION: Desirable: Less than 200 MG/DL Borderline-High Risk: 200-239 MG/DL High-Risk: 240 MG/DL and over 100 HDL INTERPRETATION: Undesirable: High Risk: Less than 40 MG/DL Desirable: Low Risk: Greater than 60 MG/DL 101 LDL INTERPRETATION: Low Risk Optimal Level: LDL Less than 100 MG/DL Near or Above Optimal: LDL 100-129 MG/DL Borderline High Risk: LDL 130-159 MG/DL High Risk: LDL 160-189 MG/DL Very High Risk: LDL Greater than 189 MG/DL 102 THERAPEUTIC TARGET FOR THE TREATMENT OF DIABETES MELLITUS PATIENTS IS <7% HBA1C, AND IN SELECTIVE PATIENTS <6.0%. PLEASE REFER TO [place] [employer] DIABETIC CARE GUIDELINES FOR FURTHER INFORMATION. 103 PLEASE NOTE NEW REFERENCE RANGES. 104 In this sample, the concentration of total homocysteine was elevated. In alternative to a less likely possibility of an inborn error of methionine metabolism, this finding is considered an independent risk factor of thromboembolic vascular disease and could be related to acquired folate or cobalamin deficiency underlying neurological disorders. Consider plasma methylmalonic acid analysis. -- REFERENCE VALUE -- <=13 (Fasting) Test Performed by: [facility] Dpt of Lab Med and Pathology [address] [place] [address] Gas Leak Inspector: Dada Quach III, M.D. 105 The detection limit for VALPROIC ACID is 10.0 mcg/ml . Values less than 10.0 mcg/ml cannot be accurately measured. . 106 * SERUM LEVELS OF PSA MEASURED USING [...] indicator of recurrent or residual disease. . 107 Less Than 1.0......Low Risk of Cardiovascular Disease 1.0-3.0............Medium Risk (<2 Fold Increase) Greater Than 3.0...High Risk (Approximately 2-Fold Increase) The above guidelines are referenced in "Markers of Inflammation and Cardiovascular Disease: Application to Clinical and Public Health Practice." A Statement for Health Professionals from the Centers for Disease Control and Prevention and the [place] [employer]. (Reference: Circulation 2003 107:499-511) SERUM LEVELS OF HIGH SENSITIVITY C-REACTIVE PROTEIN MEASURED BY THE MARCO ANTONIO Sweet P's LXi 725 SYSTEM SHOULD NOT BE INTERPRETTED ABSOLUTE EVIDENCE OF THE PRESENCE OR ABSENCE OF DISEASE. A HIGH SENSITIVITY CRP VALUE SHOULD BE USED IN CONJUNCTION WITH OTHER PERTINENT CLINICAL AND DIAGNOSTIC INFORMATION. 108 MICROALBUMINURIA IN A RANDOM SAMPLE IS DEFINED : MICROALBUMIN/CREATININE RATIO OF 30-299 ug/mg. . 109 PLEASE NOTE NEW REFERENCE RANGE EFFECTIVE 07. 110 Anion gap measurement may be of limited value in the presence of any alkalosis, especially in a combined acid base disorder. . 111 Note change in reference range as of 11/17/07. The change was based on recommendations from the [place] [employer]. 112 Please note change in reference range effective 07 . 113 GRACE VALUE=2.01 ( OF 03/04/07 Recommended INR for Patients on Oral Anticoagulants Prophylaxis 2.0 - 3.0 Treatment of thrombosis 2.0 - 3.0 Prevention of embolism 2.0 - 3.0 Prevention of embolism from prosthetic heart valves 2.5 - 3.5 Procedures Date CPT Code Description Status Comment 04/19/2017 83134 EKG Tracing & Interpretation Completed 08/19/2016 85819 Treadmill Interp/Report Only Completed 08/19/2016 42116 Stress Test Supervsn W/Out I/R Completed 07/09/2016 56679 ECHO Stress Test Incl Perf Contiuous ekg Completed Monitoring W/Phys Superv 07/06/2016 09591 ECHO Transthoracic, Real-Time 2D With Completed Doppler And Color Flow 06/02/2016 98578 ECHO Transthoracic, Real-Time 2D With Completed Doppler And Color Flow 05/25/2016 15283 Echocardiogram, Limited Study Completed 05/25/2016 43691 Echocardiogram, Limited Study Completed 05/04/2016 46428 EKG Tracing & Interpretation Completed 09/11/2015 Colonoscopy Completed 08/19/2015 15811 EKG Tracing & Interpretation Completed 01/22/2015 20913 EKG Tracing & Interpretation Completed 05/21/2014 53640 EKG Tracing & Interpretation Completed 10/16/2013 17008 EKG Tracing & Interpretation Completed 04/18/2013 Diabetic Retinal Eye Exam Completed 03/10/2013 01297 EKG Tracing & Interpretation Completed 10/27/2012 Diabetic Foot Exam Completed 08/17/2012 Colonoscopy Completed 07/27/2012 73065 Inhalation TX For Acute Airway Obstruction Completed W/Nebulizer/Inhaler 05/09/2012 45056 EKG Tracing & Interpretation Completed 11/04/2011 80133 EKG Tracing & Interpretation Completed 02/27/2011 15082 EKG Tracing & Interpretation Completed 05/09/2010 59412 EKG Tracing & Interpretation Completed 11/07/2009 80064 EKG Tracing & Interpretation Completed 08/30/2009 08012 ECHO Stress Test Incl Perf Contiuous ekg Completed Monitoring W/Phys Superv 07/30/2009 74177 ECHO Transthoracic, Real-Time 2D With Completed Doppler And Color Flow 07/24/2009 Colonoscopy Completed 05/02/2009 14630 EKG Tracing & Interpretation Completed 10/30/2008 15698 EKG Tracing & Interpretation Completed 05/15/2008 04912 ECHO Transthoracic, Real-Time 2D With Completed Doppler And Color Flow 05/15/2008 49960 Color Doppler Completed 05/15/2008 12440 Echocardiogram Completed 05/15/2008 69867 Pulse Doppler & Continuous Wave Completed 03/30/2008 03120 Selective Coronary Angioplasty Completed 03/30/2008 38250 S/I/R Inj Proc Vent And Or Atrial Completed 03/30/2008 34342 S/I/R Inj Proc Vent And Or Atrial Completed 03/30/2008 05828 Coronary Angiography Completed 03/30/2008 71348 Inj Proc LFT Vent/LFT Atrl Angio Completed 03/30/2008 64417 Inj Proc LFT Vent/LFT Atrl Angio Completed 03/30/2008 12054 Left Heart Catheterization Completed 03/02/2008 93137 EKG Tracing & Interpretation Completed 02/03/2008 70242 Stress Test Supervsn W/Out I/R Completed 02/03/2008 54346 Stress Test Supervsn W/Out I/R Completed 02/03/2008 84338 Treadmill Interp/Report Only Completed 03/29/2002 Colonoscopy Completed f/u 10 yrs Encounters Type Date Location Provider CPT E/M Dx Office Visit 02/17/2017 11:20a [facility] Jalil Linder, 97766 E11.22 Medicine - [place] Munroe,FACP M25.569 I10 Z23 Office Visit 11/16/2016 10:10a [facility] Internal Jalil Linder, 92034 E11.22 Medicine - [place] Munroe,FACP K02.9 F20.0 M25.561 Z12.2 Z72.0 Office Visit 08/13/2016 10:10a [facility] Nemesio Crowelld, 63098 M25.569 Medicine - [place] Munroe,FACP E11.22 I10 Office Visit 07/22/2016 4:20p [facility] Issac Roman, 10617 I25.10 MClaudia R06.02 I10 E11.22 E78.4 I71.9 F17.210 Office Visit 06/08/2016 9:10a [facility] Internal Jalil Linder, 48132 K56.69 Medicine - [place] Munroe,FACP I25.10 E11.22 E78.4 Z11.59 Z11.4 Office Visit 05/29/2016 7:00a [facility], 86985 K56.60 [facility] [place] Office Visit 05/29/2016 2:37p [facility] Leopoldo 83178 K56.69 [facility] KAILA Hull I10 E78.5 F20.9 Office Visit 05/28/2016 7:00a [facility], 34557 K56.60 [facility] [place] Office Visit 05/28/2016 2:37p [facility] Leopoldo 27339 K56.69 [facility] KAILA Hull I10 E78.5 F20.9 Office Visit 05/27/2016 7:00a [facility] Brendan, 80444 K56.60 [facility] [place] Office Visit 05/27/2016 2:36p [facility] Leopoldo 29676 K56.69 [facility] KAILA Hull I10 E78.5 F20.9 Office Visit 05/26/2016 7:00a [facility], 50098 K56.60 [facility] [place] Office Visit 05/26/2016 2:35p [facility] [place] [address] K56.69 [facility] F20.9 I10 E78.5 Office Visit 05/04/2016 3:30p [facility] KAILA Donis 33117 I25.10 R06.02 I10 I45.10 Office Visit 04/09/2016 11:30a [facility] Medicine Jalil Linder, 04387 F25.0 - [address] Ludwig,FACP E11.9 E78.2 E11.69 Office Visit 08/19/2015 1:40p [facility] Wilfredtaybveronica S. Jessie, 50725 E11.69 M.DIlana I25.10 E78.4 I10 F17.290 I45.19 Office Visit 03/05/2015 10:30a [facility] [place] [address] Z23 E11.9 Office Visit 01/22/2015 2:40p [facility] Wilfredtaybveronica S. Jessie, 31107 I25.10 M.DIlana E78.4 I10 F17.290 Office Visit 12/04/2014 10:00a [facility] [place] [address] Office Visit 09/10/2014 11:00a [facility] [place] [address] 709.8 250.00 414.01 272.4 401.1 305.1 295.12 278.00 Office Visit 08/28/2014 2:30p [facility] [place] [address] 250.00 Office Visit 05/21/2014 2:40p [facility] Wilfredtaybveronica S. Julyjose, 46131 414.01 M.D. 401.1 794.31 272.4 250.00 Office Visit 10/16/2013 2:00p [facility] Qutaybveronica S. Julyydah, 40617 414.01 M.D. 401.1 794.31 272.4 250.00 Office Visit 05/24/2013 12:10p [facility] Medicine Jalil Linder, 35766 782.3 - Basil Munroe,FACP 719.47 250.40 Office Visit 04/13/2013 1:30p [facility] Medicine Ramona Huff, N.P. [address] 250.40 - [address] 305.01 305.1 Office Visit 03/10/2013 2:40p [facility] Qutaybveronica S. Julyydah, 02600 305.1 M.DIlana 414.01 401.1 794.31 272.4 Office Visit 01/10/2013 1:00p [facility] Ramona Huff, N.P. [address]175 250.40 - [address] 305.1 v04.81 Office Visit 10/07/2012 1:30p [facility] Ramona Daria, N.P. [address]2796 250.40 - [address] 278.00 305.1 250.00 Office Visit 07/29/2012 3:00p [facility] Jalil Linder, 71330 491.21 - Basil Munroe,FACP Office Visit 07/27/2012 8:40a [facility] Chirag Castaneda, 78339 466.0 - Basil Munroe Office Visit 05/09/2012 10:20a [facility] Qutaybeh S. 77481 250.40 Ludwig Roman 305.1 414.01 401.1 Office Visit 04/12/2012 10:30a [facility] Jalil Linder, 29191 V70.0 - Basil Munroe,FACP V76.51 250.40 709.8 305.1 V04.81 V05.3 Office Visit 11/04/2011 3:20p [facility] Qutaybeh S. Maghaydah, 40606 414.01 M.DIlana 401.1 272.4 250.40 794.31 Office Visit 03/06/2011 3:40p DO Not Use [facility] Jalil Linder, 03643 V70.0 Loren Munroe,FACP 250.00 414.01 V04.81 Office Visit 02/27/2011 1:00p [facility] Qutaybeh S. Maghaydah, 33933 250.00 M.DIlana 414.01 305.1 401.1 272.4 Office Visit 05/22/2010 11:20a DO Not Use [facility] Jalil Linder, 98503 250.00 Loren Munroe,FACP 414.01 305.1 Office Visit 05/09/2010 10:40a [facility] Qutaybeh S. Maghaydah, 46756 414.01 M.D. 305.1 401.1 272.4 Office Visit 03/10/2010 10:20a DO Not Use [facility], 09290 250.00 [place] M.D.,FACP 496 250.40 V03.82 Office Visit 02/19/2010 1:40p DO Not Use [facility], 42647 724.9 [place] M.D.,FACP 250.00 401.1 272.4 305.01 V76.51 V04.81 Office Visit 12/20/2009 2:40p DO Not Use [facility], 97636 466.0 [place] M.D.,FACP 305.1 Office Visit 11/25/2009 9:20a DO Not Use [facility], 87351 250.00 [place] M.D. 401.1 272.4 305.1 Office Visit 11/07/2009 3:00p [facility] 19355 414.01 M.D. 401.1 272.4 Office Visit 08/22/2009 11:20a DO Not Use [facility], 63422 250.00 [place] M.D. Office Visit 07/26/2009 11:20a DO Not Use [facility], 01229 250.00 [place] M.D. Office Visit 07/18/2009 8:40a DO Not Use [facility], 80725 250.00 [place] M.D. 275.42 272.4 Office Visit 06/17/2009 8:40a [facility] 31365 250.00 [place] M.D. 275.42 287.5 272.4 414.01 789.1 376.30 305.1 Office Visit 06/05/2009 8:40a DO Not Use [facility], 45048 792.1 [place] M.D. 110.3 Office Visit 05/20/2009 2:00p DO Not Use [facility], 24589 401.1 [place] M.D. 414.01 272.4 250.00 278.00 789.1 376.30 305.1 303.90 Office Visit 05/02/2009 3:20p [facility] Issac Roman, 88059 401.1 M.D. 414.01 272.4 Office Visit 10/30/2008 3:00p [facility] Issac Roman, 89561 401.1 M.D. 414.01 272.4 Office Visit 05/01/2008 3:40p [facility] Issac Freitas. Jessie, 53116 401.1 M.D. 272.4 414.01 Office Visit 04/05/2008 1:20p [facility] Miguel Carl, 91863 786.50 M.D. Office Visit 03/30/2008 9:00a [facility] Issac Roman, 11762 786.50 M.D. 794.30 794.31 401.1 Office Visit 03/02/2008 10:20a [facility] Issac Roman, 98153 786.50 M.D. 401.0 794.31 272.4 786.05 Plan of Care Future Appointment(s):05/31/2017 9:40 am - Issac Roman M.D. at [facility]05/20/2017 10:00 am - Jalil Linder M.D.,FACP at [facility] Internal Medicine - [address]04/19/2017 - Issac Roman M.D.Z01.810 Encounter for preprocedural cardiovascular uprvwwpiaseA95.9 Aortic aneurysm of unspecified site, without ruptureNew Orders:OplegqnwrpvdnoI03.4 Other uvljjttpvswufyJ40 Essential (primary) fqvwvvbfobclD29.10 Athscl heart disease of [place] coronary artery w/o ang pctrsFollow up:9 months ov
[2017-05-13] MEDS ORDERED: Acetaminophen TAB* 325 MG PO ONE (01:26)
[2017-05-13] MEDS ORDERED: Amoxicillin PO (*) 250 MG CAP PO ONE (01:26)
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
--- NOTE | 2017-05-13 10:00 | RAD ---
Indication: Facial injury. CT of the facial bones was obtained in the axial plane. Sagittal and coronal reconstructed images were obtained. The visualized hyoid bone is unremarkable. The mandible demonstrates no fracture. Temporomandibular joints are unremarkable. Skull base is unremarkable. Mastoid air cells are unremarkable. The frontal sinuses demonstrates no fracture. Ethmoid air cells are well aerated. The orbits demonstrate no fracture. The nasal arch and nasal septum demonstrates no fracture. The nasal spine and the maxilla is fractured. Soft tissue swelling is noted. Zygomatic arches appear intact. IMPRESSION: Fracture of the nasal spine.
== END 2017-05-13 01:56 | disposition home or self-care (01) ==
LOC: ED 23:55
DX: S02.5XXA Fracture of tooth (traumatic), initial encounter for closed fracture (principal); S02.2XXA Fracture of nasal bones, initial encounter for closed fracture; W50.0XXA Accidental hit or strike by another person, initial encounter; Y92.9 Unspecified place or not applicable; F17.210 Nicotine dependence, cigarettes, uncomplicated; F17.290 Nicotine dependence, other tobacco product, uncomplicated; Z88.8 Allergy status to other drugs, medicaments and biological substances
CPT/HCPCS: 70486; 99282; A9270-GY

== ENCOUNTER → 2017-10-16 16:04 | Emergency (ER) | payer MEDICARE, MEDICAID ==
[2017-10-16 16:48] LABS: ABS Basophils 0.1 10^3/ul (0-0.2); ABS Eosinophils 0.1 10^3/ul (0-0.6); ABS Lymphocytes 1.8 10^3/ul (1.0-4.8); ABS Monocytes 0.7 10^3/ul (0-0.8); ABS Neutrophils 3.1 10^3/ul (1.5-7.7); ABS Nucleated RBC 0 10^3/ul; Eosinophil % 1.6 % (0-6); Hematocrit 41 % (42-52); Lymphocyte % 31.3 % (25-47); Mean Corpuscular HGB Conc 34 g/dl (31-36); Mean Corpuscular Hemoglobin 30 pg (27-31); Mean Corpuscular Volume 88 fL (80-94); Mean Platelet Volume 8.4 um3 (7.4-10.4); Nucleated Red Blood Cells % 0.1; Platelet Count 104 10^3/ul (150-450); Red Blood Count 4.66 10^6/ul (4.00-5.40); Red Cell Distribution Width 15 % (10.5-15); White Blood Count 5.8 10^3/ul (3.5-10.8)
[2017-10-16 16:59] LABS: EGFR Non-African American 120.2 (>60)
[2017-10-16 18:10] LABS: Urine Appearance Clear; Urine Blood Negative (Negative); Urine Color Straw; Urine Ketones Trace (Negative); Urine Protein Negative (Negative); Urine Specific Gravity 1.015 (1.010-1.030); Urine Urobilinogen Negative (Negative)
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
[2017-10-16 20:00] VITALS: BP 129/72
== END | disposition home or self-care (01) ==
LOC: ED 16:04
DX: F20.9 Schizophrenia, unspecified (principal); F41.9 Anxiety disorder, unspecified; Z88.8 Allergy status to other drugs, medicaments and biological substances; F17.210 Nicotine dependence, cigarettes, uncomplicated
CPT/HCPCS: 36415; 80053; 80061; 80307; 80320; 80329; 81003; 83036; 84443; 85025; 99284; G0480

== ENCOUNTER 2017-10-18 01:49 | Inpatient (IN) | payer MEDICARE, MEDICAID ==
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
[2017-10-18] MEDS ORDERED: Nicotine GUM* 2 MG PO PRN (05:36)
[2017-10-18] MEDS ORDERED: Nicotine Inhaler* 10 MG AMP INH PRN (05:36)
[2017-10-18] MEDS ORDERED: Acetaminophen TAB* 325 MG PO PRN (05:36)
[2017-10-18] MEDS ORDERED: Al Hydrox/Mg Hydrox/Simet LIQ* 30 ML UDC PO PRN (05:36)
[2017-10-18] MEDS ORDERED: Mouth Piece, Nicotine* 1 EACH CARTRIDGE INH ONE (06:00)
[2017-10-18 06:26] VITALS: BP 151/84
--- NOTE | 2017-10-18 08:17 | RAD ---
Indication: Schizophrenia. Alcohol abuse. Comparison: No relevant prior exams available on the [facility] [place] PACS for comparison. Technique: Noncontrast CT vertex of skull through foramen magnum. Report: The sulci, ventricles, and basal cisterns are normal for age. Zaidi matter white matter differentiation is preserved without evidence for edema. No intra or extra axial hemorrhage, mass, or fluid collection detected. Unremarkable visualized orbital contents. Atherosclerotic calcification at the LEFT vertebral artery at the skull base. Atherosclerotic calcification at the carotid siphons. Unremarkable calvarium and skull base. Unremarkable scalp. 1.5 cm mucous retention cyst or polyp at the RIGHT maxillary sinus. Negative for paranasal sinus fluid levels or mastoid effusions. IMPRESSION: #. No acute CT abnormality of the brain. #. 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
[2017-10-18] MEDS: Vitamin THERAPEUTIC TAB PO SCH ×2 (09:14→10:56)
[2017-10-18] MEDS ORDERED: Metoprolol Tartrate TAB* 100 MG TAB PO ONE (10:27)
[2017-10-18] MEDS ORDERED: Lisinopril TAB* 10 MG PO ONE (10:28)
[2017-10-18] MEDS ORDERED: Aspirin EC TAB* 81 MG TAB.EC PO ONE (10:29)
[2017-10-18] MEDS ORDERED: metFORMIN* 500 MG TAB PO ONE (10:29)
[2017-10-18] MEDS ORDERED: Divalproex ER TAB(*) 500 MG PO SCH (10:30)
[2017-10-18] MEDS ORDERED: Linaclotide (NF) 145 MCG CAP PO SCH (10:30)
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
== END 2017-10-18 11:00 | disposition home or self-care (01) | DRG 885 ==
LOC: ED 01:49 → BSU 05:29
PROVIDERS: ADMIT Psychiatry & Neurology Psychiatry; ATTEND Psychiatry & Neurology Psychiatry
DX: F20.0 Paranoid schizophrenia (principal); F20.1 Disorganized schizophrenia; I10 Essential (primary) hypertension; E78.5 Hyperlipidemia, unspecified; E11.9 Type 2 diabetes mellitus without complications
CPT/HCPCS: 36415; 70450; 80164; 99284; A9270-GY

== ENCOUNTER 2017-12-20 19:09 | Emergency (ER) | payer MEDICARE, MEDICAID ==
[2017-12-20 19:42] LABS: Urine Appearance Clear; Urine Blood 3+ (Negative); Urine Color Straw; Urine Ketones 1+ (Negative); Urine Protein 2+(100 mg/dL) (Negative); Urine Urobilinogen Negative (Negative)
[2017-12-20 20:01] LABS: Hematocrit 43 % (42-52); Hemoglobin 14.5 g/dl (14.0-18.0); Mean Corpuscular HGB Conc 34 g/dl (31-36); Mean Corpuscular Hemoglobin 30 pg (27-31); Mean Corpuscular Volume 89 fL (80-94); Red Cell Distribution Width 16 % (10.5-15); White Blood Count 6.2 10^3/ul (3.5-10.8)
[2017-12-20 20:12] LABS: EGFR Non-African American 117.8 (>60)
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
[2017-12-20 21:08] LABS: ABS Basophils 0.1 10^3/ul (0-0.2); ABS Eosinophils 0.2 10^3/ul (0-0.6); ABS Lymphocytes 2.1 10^3/ul (1.0-4.8); ABS Monocytes 0.7 10^3/ul (0-0.8); ABS Nucleated RBC 0 10^3/ul; Eosinophil % 3.3 % (0-6); Lymphocyte % 34.6 % (25-47); Mean Platelet Volume 8.7 um3 (7.4-10.4); Nucleated Red Blood Cells % 0; Platelet Count 93 10^3/ul (150-450)
--- NOTE | 2017-12-21 04:07 | ED ---
Progress - Progress Note Progress Note: This patient was signed out from Isiah Reed on shift changed awaiting MHE. After MHE by Dr. Ulrich the patient will be admitted with dx of schizophrenia. There are no beds available so the patient will be transferred - Consult/PCP Time Called: 21:45 - Additional EKG/XRAY/Consults EKG #2: NSR - at 63 BPM taken at 0424 Comments: RBBB Re-Evaluation - Re-Evaluation First Eval Re-Evaluation Time: 21:26 Comment: Pt is medically cleared. Course/Dx - Course Course Of Treatment: This patient was signed out from Isiah Reed on shift changed awaiting MHE. After MHE by Dr. Ulrich the patient will be admitted with dx of schizophrenia. The patient will be signed out awaiting transfer - Diagnoses Provider Diagnoses: Schizophrenia Discharge - Sign-Out/Discharge Documenting (check all that apply): Patient Departure - transfered , Sign-Out Patient, Receiving Sign-Out Signing out patient TO: Matt Jerome Receiving patient FROM: Chris Joyce - Discharge Plan Condition: Fair Disposition: PSYCHIATRIC FACILITY-OTHER Referrals: Jalil Linder MD [Primary Care Provider] - - Attestation Statements Document Initiated by Scribe: Yes Documenting Scribe: Cole Sheikh Provider For Whom Scribe is Documenting (Include Credential): Ry Flores MD Scribe Attestation: Cole Del Rio , scribed for Ry Flores MD on 12/22/17 at 0942.
[2017-12-21] MEDS ORDERED: metFORMIN* 500 MG TAB PO SCH ×2 (08:30→17:00)
--- NOTE | 2017-12-21 08:39 | PN ---
ED Flex Patient Progress Note Subjective: This is a 57 year-old M who is pending admission to [facility] Unit / transfer to another psychiatric facility / discharge to home / or being observed secondary to psychosis. Pt. examined in room 13 in ER. He is sitting on bed comfortably. He offers no complaints. Objective: Vitals: Most recent vital signs documented below. General NAD, Alert and oriented x3. Laboratory: Current laboratory results documented below. Assessment: Pending MHE. Plan: Pending psychiatric or medical consultation to observe / transfer / admit / discharge will follow up daily . Morning medications ordered. Vital Signs Temp Pulse Resp BP Pulse Ox 97.8 F 62 16 138/67 99 12/21/17 05:32 12/20/17 21:33 12/21/17 05:32 12/21/17 05:32 12/21/17 05:32 Lab Results - Entire Visit 12/20/17 12/20/17 12/20/17 19:34 19:34 19:19 WBC 6.2 RBC 4.80 Hgb 14.5 Hct 43 MCV 89 MCH 30 MCHC 34 RDW 16 H Plt Count 93 L MPV 8.7 Neut % (Auto) 49.2 Lymph % (Auto) 34.6 [place] % (Auto) 11.8 H Eos % (Auto) 3.3 Baso % (Auto) 1.1 Absolute Neuts (auto) 3.0 Absolute Lymphs (auto) 2.1 Absolute Monos (auto) 0.7 Absolute Eos (auto) 0.2 Absolute Basos (auto) 0.1 Absolute Nucleated RBC 0 Nucleated RBC % 0 Sodium 134 L Potassium 4.5 Chloride 98 L Carbon Dioxide 27 Anion Gap 9 BUN 16 Creatinine 0.69 Est GFR ( Amer) 142.5 Est GFR (Non-Af Amer) 117.8 BUN/Creatinine Ratio 23.2 H Glucose 221 H Calcium 9.9 Total Bilirubin 0.40 AST 26 ALT 31 Alkaline Phosphatase 59 Total Protein 7.3 Albumin 4.4 Globulin 2.9 Albumin/Globulin Ratio 1.5 TSH 2.12 Urine Color Urine Appearance Urine pH Ur Specific [place] Urine Protein Urine Ketones Urine Blood Urine Nitrate Urine Bilirubin Urine Urobilinogen Ur Leukocyte Esterase Urine Glucose Salicylates < 2.50 Urine Opiates Screen None detected Acetaminophen < 15 Ur Barbiturates Screen None detected Valproic Acid 93.0 Ur Phencyclidine Scrn None detected Ur Amphetamines Screen None detected U Benzodiazepines Scrn None detected Urine Cocaine Screen None detected U Cannabinoids Screen None detected Serum Alcohol < 10 12/20/17 19:19 WBC RBC Hgb Hct MCV MCH MCHC RDW Plt Count MPV Neut % (Auto) Lymph % (Auto) [place] % (Auto) Eos % (Auto) Baso % (Auto) Absolute Neuts (auto) Absolute Lymphs (auto) Absolute Monos (auto) Absolute Eos (auto) Absolute Basos (auto) Absolute Nucleated RBC Nucleated RBC % Sodium Potassium Chloride Carbon Dioxide Anion Gap BUN Creatinine Est GFR ( Amer) Est GFR (Non-Af Amer) BUN/Creatinine Ratio Glucose Calcium Total Bilirubin AST ALT Alkaline Phosphatase Total Protein Albumin Globulin Albumin/Globulin Ratio TSH Urine Color Straw Urine Appearance Clear Urine pH 7 Ur Specific [place] 1.010 Urine Protein 2+(100 mg/dl) A Urine Ketones 1+ A Urine Blood 3+ A Urine Nitrate Negative Urine Bilirubin Negative Urine Urobilinogen Negative Ur Leukocyte Esterase Negative Urine Glucose 3+(>=500 mg/dl) A Salicylates Urine Opiates Screen Acetaminophen Ur Barbiturates Screen Valproic Acid Ur Phencyclidine Scrn Ur Amphetamines Screen U Benzodiazepines Scrn Urine Cocaine Screen U Cannabinoids Screen Serum Alcohol
[2017-12-21] MEDS ORDERED: Aspirin EC TAB* 81 MG TAB.EC PO ONE (09:12)
[2017-12-21] MEDS ORDERED: metFORMIN* 500 MG TAB PO ONE (09:23)
[2017-12-21] MEDS ORDERED: Lisinopril TAB* 5 MG PO ONE (09:23)
[2017-12-21] MEDS ORDERED: Divalproex ER TAB(*) 500 MG PO ONE (09:23)
[2017-12-21] MEDS ORDERED: Metoprolol Tartrate TAB* 50 mg PO ONE (09:23)
[2017-12-21] MEDS ORDERED: Linaclotide (NF) 145 MCG CAP PO SCH (10:00)
[2017-12-21] MEDS ORDERED: Al Hydrox/Mg Hydrox/Simet LIQ* 30 ML UDC PO PRN (10:17)
[2017-12-21] MEDS ORDERED: Acetaminophen TAB* 325 MG PO PRN (10:17)
[2017-12-21] MEDS ORDERED: Nicotine Inhaler* 10 MG AMP ONE (10:49)
[2017-12-21] MEDS ORDERED: Mouth Piece, Nicotine* 1 EACH CARTRIDGE ONE (10:49)
--- NOTE | 2017-12-21 11:53 | ED ---
Progress - Progress Note Progress Note: This patient was signed out from Dr. Flores on shift changed awaiting psych transfer facility. Pt is a 57 y/o M presenting to ED for MHE. Denies SI/HI. Pt has previous psych history. Re-Evaluation - Re-Evaluation First Eval Re-Evaluation Time: 17:18 Change: Worse Comment: Pt is acutely psychotic. Pt is refusing transfer. Course/Dx - Course Course Of Treatment: Received sign-out from Dr. Flores at shift changed awaiting MH dispo/transfer. At 1148: Per mental health electrical calibrator, Dr. Worthington, psych, has approved transfer. Pt was accepted by [facility] Dx: schizophrenia. Had a doc-to-doc consult with Dr. Tate at [facility], accepts pt for transfer. CC - 35 minutes. - Diagnoses Provider Diagnoses: Schizophrenia - Critical Care Time Critical Care Time: 30-74 min - 35 minutes Discharge - Sign-Out/Discharge Documenting (check all that apply): Patient Departure - TRANS, Receiving Sign- Out Receiving patient FROM: Ry Flores - Discharge Plan Condition: Fair Disposition: PSYCHIATRIC FACILITY-OTHER Referrals: Jalil Linder MD [Primary Care Provider] - - Attestation Statements Document Initiated by Scribe: Yes Documenting Scribe: Susan Wilson Provider For Whom Scribe is Documenting (Include Credential): Dr. Matt Jerome MD Scribe Attestation: Susan Del Rio, scribed for Dr. Matt Jerome MD on 12/21/17 at 1751.
[2017-12-21] MEDS ORDERED: Haloperidol INJ IV/IM* 5 MG/ML AMP IM ONE (17:15)
[2017-12-21] MEDS ORDERED: LORazepam INJ* 2 MG/ML 1 ML VIAL IV PUSH ONE (17:15)
[2017-12-21] MEDS ORDERED: diPHENhydraMINE IV* 50 MG/ML 1 ml VIAL (BENADRYL) IM ONE (17:15)
[2017-12-21 17:42] VITALS: BP 164/82
[2017-12-21] MEDS ORDERED: Divalproex ER TAB(*) 500 MG PO SCH (21:00)
[2017-12-21] MEDS ORDERED: risperiDONE TAB* 2 MG PO SCH (21:00)
[2017-12-21] MEDS ORDERED: Metoprolol Tartrate TAB* 100 MG TAB PO SCH (21:00)
[2017-12-21] MEDS ORDERED: Atorvastatin* 10 MG TAB PO SCH (21:00)
[2017-12-22] MEDS ORDERED: Lisinopril TAB* 5 MG PO SCH (09:00)
[2017-12-22] MEDS ORDERED: Aspirin EC TAB* 81 MG TAB.EC PO SCH (09:00)
== END 2017-12-21 17:39 ==
LOC: ED 19:09
DX: F20.9 Schizophrenia, unspecified (principal); I45.10 Unspecified right bundle-branch block
CPT/HCPCS: 36415; 80053; 80164; 80307; 80320; 80329; 81003; 81015; 84443; 85025; 85060; 93005; 96372; 96374; 99285; A9270-GY; G0480; J1200; J1630; J2060